=== PATIENT | male | born 1940 | race Caucasian/White ===

== ENCOUNTER 2017-04-20 12:45 | Inpatient (IN) | payer OTHER ==
[2017-04-20 12:58] VITALS: BMI 23.7
--- NOTE | 2017-04-20 13:07 | PDOC ---
History of Present Illness <Nomi Davison - Last Filed: 04/20/17 13:40> - History of Present Illness Initial Comments: 04/20/17 13:12 The patient is a 76 year old male, with a significant past medical history of COPD, who presents to the emergency department, brought in by ambulance from Dr. Clifford Rodriguez office for evaluation of increased SOB r/o pneumonia and CHF. As per Dr. Maloney, the patient was seen in the office about a week ago where an echocardiogram was performed revealing an ejection fracture of 26. Dr. Maloney reportedly started the patient on Lasix on Tuesday, 04/18, and upon a follow-up appointment today, the patient appeared to be in more respiratory distress so the ambulance was called. He denies chest pain, headache and dizziness. He denies fever, chills, nausea, vomit, diarrhea and constipation. He denies dysuria, frequency, urgency and hematuria. Allergies: NKDA PCP: Dr. Clifford Maloney <Lizette Fortune - Last Filed: 04/20/17 15:37> - General Chief Complaint: Respiratory Stated Complaint: SOB (PCP SENT) Time Seen by Provider: 04/20/17 13:07 Past History - Past Medical History HTN: Yes Hypercholesterolemia: Yes Other medical history: RADIATION TO LARYNX. - Suicide/Smoking/Psychosocial Hx Smoking History: Former smoker Have you smoked in the past 12 months: No If you are a former smoker, when did you quit?: 3 YRS AGO Information on smoking cessation initiated: No Hx Alcohol Use: Yes (SOCIAL) Drug/Substance Use Hx: No <Nomi Davison - Last Filed: 04/20/17 13:40> <Lizette Fortune - Last Filed: 04/20/17 15:37> - Past Medical History Allergies/Adverse Reactions: Allergies Allergy/AdvReac Type Severity Reaction Status Date / Time No Known Allergies Allergy Verified 04/20/17 12:58 Home Medications: Ambulatory Orders Albuterol Sulfate [Proair Respiclick] 90 mcg IH DAILY 04/20/17 Amlodipine Besylate 10 mg PO DAILY 04/20/17 Doxazosin Mesylate 2 mg PO HS 04/20/17 Furosemide 20 mg PO Q2D 04/20/17 Gemfibrozil 600 mg PO DAILY 04/20/17 Metoprolol Succinate [Toprol XL -] 25 mg PO DAILY 04/20/17 Tiotropium Br/Olodaterol HCl [Stiolto Respimat Inhal [place]] 4 gm IH DAILY Review of Systems - Review of Systems Able to Perform ROS?: Yes Comments:: 04/20/17 13:13 GENERAL/CONSTITUTIONAL: No fever or chills. No weakness. HEAD, EYES, EARS, NOSE AND THROAT: No change in vision. No ear pain or discharge. No sore throat. CARDIOVASCULAR: (+) shortness of breath. No chest pain RESPIRATORY: (+) SOB. No cough, wheezing, or hemoptysis. GASTROINTESTINAL: No nausea, vomiting, diarrhea or constipation. GENITOURINARY: No dysuria, frequency, or change in urination. MUSCULOSKELETAL: No joint or muscle swelling or pain. No neck or back pain. SKIN: No rash NEUROLOGIC: No headache, vertigo, loss of consciousness, or change in strength/ sensation. ENDOCRINE: No increased thirst. No abnormal weight change. HEMATOLOGIC/LYMPHATIC: No anemia, easy bleeding, or history of blood clots. ALLERGIC/IMMUNOLOGIC: No hives or skin allergy. <Lizette Fortune - Last Filed: 04/20/17 15:37> *Physical Exam - Vital Signs Last Vital Signs Temp Pulse Resp BP Pulse Ox 97.7 F 82 20 142/76 94 L 04/20/17 12:52 04/20/17 12:52 04/20/17 12:52 04/20/17 12:52 04/20/17 12:52 <Nomi Davison - Last Filed: 04/20/17 13:40> - Vital Signs Last Vital Signs Temp Pulse Resp BP Pulse Ox 97.7 F 82 20 142/76 94 L 04/20/17 12:52 04/20/17 12:52 04/20/17 12:52 04/20/17 12:52 04/20/17 12:52 - Physical Exam Comments: 04/20/17 13:14 GENERAL: Awake, alert, and fully oriented, in no acute distress HEAD: No signs of trauma EYES: PERRLA, EOMI, sclera anicteric, conjunctiva clear ENT: Auricles normal inspection, hearing grossly normal, nares patent, oropharynx clear without exudates. Moist mucosa NECK: Normal ROM, supple, no lymphadenopathy, JVD, or masses LUNGS: Breath sounds equal, clear to auscultation bilaterally. No wheezes, and no crackles HEART: Regular rate and rhythm, normal S1 and S2, no murmurs, rubs or gallops ABDOMEN: Soft, nontender, normoactive bowel sounds. No guarding, no rebound. No masses EXTREMITIES: Normal range of motion, no edema. No clubbing or cyanosis. No cords, erythema, or tenderness NEUROLOGICAL: Cranial nerves II through XII grossly intact. Normal speech, normal gait SKIN: Warm, Dry, normal turgor, no rashes or lesions noted. <Lizette Fortune - Last Filed: 04/20/17 15:37> ED Treatment Course - LABORATORY CBC & Chemistry Diagram: 04/20/17 13:38 04/20/17 13:38 - RADIOLOGY Radiograph Interpretation: EXAM#: TYPE/EXAM: RESULT: [id number] RAD/CHEST X-RAY PORTABLE* Evaluate for pneumonia. Portable chest x-ray, AP sitting. Since prior chest x-ray dated 04/04/2017, the cardiac silhouette remains slightly to moderately enlarged. Bilateral increased interstitial markings are suggestive of mild pulmonary venous congestion plus or minus infiltrates. There is also probable minimal left pleural effusion. Mediastinum and visualized osseous structures appear intact with mild dextroscoliosis of the thoracic spine IMPRESSION: Mild to moderate cardiomegaly with mild pulmonary venous congestion plus or minus infiltrates, Reported By: Reginald Rodriguez MD 04/20/17 0510 <Lizette Fortune - Last Filed: 04/20/17 15:37> *DC/Admit/Observation/Transfer - Discharge Dispostion Admit: Yes - Attestations Physician Attestion: 04/20/17 13:07 I, Dr. Nomi Davison, attest that this document has been prepared under my direction and personally reviewed by me in its entirety. I further attest, that it accurately reflects all work, treatment, procedures and medical decision -making performed by me. <Nomi Davison - Last Filed: 04/20/17 13:40> - Attestations Scribe Attestion: 04/20/17 13:14 Documentation prepared by Lizette Fortune, acting as medical appointment clerk for Nomi Davison DO <Lizette Fortune - Last Filed: 04/20/17 15:37> Diagnosis at time of Disposition: Acute dyspnea CHF (congestive heart failure) Qualifiers: Congestive heart failure type: combined Congestive heart failure chronicity: acute Qualified Code(s): I50.41 - Acute combined systolic (congestive) and diastolic (congestive) heart failure COPD (chronic obstructive pulmonary disease) Qualifiers: COPD type: COPD with acute exacerbation Qualified Code(s): J44.1 - Chronic obstructive pulmonary disease with (acute) exacerbation - Discharge Dispostion Condition at time of disposition: Improved - Referrals
[2017-04-20] MEDS ORDERED: methylPREDNISolone NA SUCC 125 MG/2 ML VIAL IVPUSH ONE (13:08)
[2017-04-20] MEDS ORDERED: ALBUTEROL SO4 2.5/IPRATROPIUM 0.5 INH SOL 3 ML VIAL.NEB. NEB ONE ×2 (13:08→13:15)
[2017-04-20] MEDS ORDERED: FUROSEMIDE 40 MG/4 ML INJECTABLE VIAL IVPUSH ONE (13:08)
[2017-04-20] MEDS ORDERED: ALBUTEROL SO4 0.083% IH SOL 2.5 MG/3 ML VIAL.NEB. NEB ONE ×2 (13:08→13:15)
[2017-04-20] MEDS ORDERED: FUROSEMIDE 40 MG/4 ML INJECTABLE VIAL ONE (13:15)
[2017-04-20 13:50] LABS: BASOPHIL 3.1 % (0-2.0); EOSINOPHIL 9.8 % (0-4.5); MCH 32.5 pg (25.7-33.7); MCHC 33.4 g/dl (32.0-35.9); MEAN CELL VOLUME 97.4 fl (80-96); MEAN PLT VOLUME 9.1 fl (7.5-11.1); NEUTROPHILS 54.5 % (42.8-82.8); PLATELET COUNT 214 K/MM3 (134-434); RDW 12.2 % (11.9-15.9)
--- NOTE | 2017-04-20 14:26 | HP ---
Admitting History and Physical - Admission Chief Complaint: pt c/o of sob wosenig despite lasix 2o twice a wk History of Present Illness: had h/o copd excacerbasions old mi low e f less 3o/5 History Source: Patient Limitations to Obtaining History: No Limitations - Past Medical History Cardiovascular: Yes: CHF, HTN, [place], Other (low ejecc fx less 3o) Pulmonary: Yes: COPD ENT: Yes: Other (h/o laryngeal ca) - Smoking History Smoking history: Former smoker Have you smoked in the past 12 months: No If you are a former smoker, when did you quit?: 3 YRS AGO - Alcohol/Substance Use Hx Alcohol Use: Yes (SOCIAL) History of Substance Use: reports: None - Social History Usual Living Arrangement: Yes: With Spouse Home Medications - Allergies Allergies/Adverse Reactions: Allergies Allergy/AdvReac Type Severity Reaction Status Date / Time No Known Allergies Allergy Verified 04/20/17 12:58 Family Disease History - Family Disease History Family History: Unremarkable Physical Examination Vital Signs: Vital Signs Temperature 97.7 F 04/20/17 12:52 Pulse Rate 82 04/20/17 12:52 Respiratory Rate 20 04/20/17 12:52 Blood Pressure 142/76 04/20/17 12:52 O2 Sat by Pulse Oximetry (%) 94 L 04/20/17 12:52 Assessment/Plan lasix card f/u reapeat cxr in am to see if underlying infitrae cont all pt meds and inhalers echo in am watch pt renal numbers
[2017-04-20 14:30] LABS: ALBUMIN 2.8 g/dl (3.4-5.0); ANION GAP 8 (8-16); BILIRUBIN,TOTAL 0.5 mg/dL (0.2-1.0); CALCIUM 8.5 mg/dL (8.5-10.1); CO2 25 mmol/L (21-32); CREATININE 1.2 mg/dL (0.7-1.3); GLUCOSE,RANDOM 126 mg/dL (74-106); SGPT/ALT 19 U/L (12-78); TOT PROT 6.3 g/dl (6.4-8.2)
[2017-04-20 14:31] LABS: ARTERIAL BLD GAS O2 SATURATION 90.4 % (90-98.9); ARTERIAL BLOOD GAS BASE EXCESS -0.8 meq/l (-2-2); ARTERIAL BLOOD GAS HCO3 22.5 meq/L (22-26); ARTERIAL BLOOD GAS PO2 59.3 mmHg (70-100); ARTERIAL BLOOD GAS pH 7.42 (7.35-7.45)
[2017-04-20 14:32] LABS: PROTHROMBIN TIME (PATIENT) 11.3 SEC (9.98-11.88)
[2017-04-20 14:33] LABS: ALK PHOS 74 U/L (45-117); CPK 52 IU/L (39-308); TROPONIN I 0.09 ng/ml (0.00-0.05)
[2017-04-20 14:35] LABS: SGOT/AST 21 U/L (15-37)
[2017-04-20 14:41] LABS: TYPE OF O2 nasal 2.5l
[2017-04-20] MEDS: GEMFIBROZIL 600 MG TABLET (FP) PO SCH (16:59)
[2017-04-20] MEDS ORDERED: METOPROLOL TARTRATE 25 MG TABLET (FP) PO SCH (22:00)
[2017-04-20 22:12] LABS: ANION GAP 12 (8-16); CALCIUM 8.5 mg/dL (8.5-10.1); CO2 23 mmol/L (21-32); CREATININE 1.3 mg/dL (0.7-1.3); GLUCOSE,RANDOM 150 mg/dL (74-106); MAGNESIUM 1.9 mg/dL (1.8-2.4)
[2017-04-20] MEDS ORDERED: HEPARIN NA (PORCINE) 5,000 UNITS/ML 1ML VIAL IVPUSH ONE (22:42)
[2017-04-20] MEDS ORDERED: HEPARIN NA (PORCINE) 5,000 UNITS/ML 1ML VIAL IVPUSH PRN ×2 (22:42)
[2017-04-20] MEDS ORDERED: METOPROLOL TARTRATE 25 MG TABLET (FP) PO ONE (23:00)
[2017-04-20] MEDS: POTASSIUM CHLORIDE TABS 20 MEQ TABLET.ER (FP) PO SCH (23:00)
[2017-04-20 23:45] LABS: INR 1.03 (0.82-1.09); PROTHROMBIN TIME (PATIENT) 11.6 SEC (9.98-11.88)
[2017-04-20 23:48] LABS: ACTIVATED PTT 31.6 SECONDS (26.9-34.4)
[2017-04-21] MEDS: HEPARIN INFUSION - 500 ML IVPB SCH ×2 (00:06→22:41)
--- NOTE | 2017-04-21 00:09 | CONS ---
DATE OF CONSULTATION: 04/20/2017 TIME OF CONSULTATION: 9:45 to 10:40 REQUESTING PHYSICIAN: Clifford Maloney M.D. CARDIOLOGY CONSULTATION CHIEF COMPLAINT: 1. Shortness of breath. 2. Cough. The patient is a 76-year-old [place] gentleman with history of chronic obstructive pulmonary disease, hypertension, hypertensive cardiovascular disease, hypercholesterolemia, and history of cerebral vascular event approximately 25 years ago while he was off his hypertensive therapy. Patient states that for the past 2-3 days, he has noted dyspnea that occurred on walking short distances and for the past 2 days had orthopnea and paroxysmal nocturnal dyspnea associated with a severe cough that was nonproductive. He denies having chest pain or discomfort, either at rest or with exertion. Denies having pedal edema. There is no history of lightheadedness, dizziness, presyncope or syncope. Denies having palpitations. There is no history of diabetes mellitus. No history of heart murmur or rheumatic fever. Patient states that he had ongoing dyspnea and therefore he decided to come to the hospital. PAST HISTORY: As mentioned in the history of present illness. Patient states he was told to have an enlarged heart. History of laryngeal carcinoma. SURGICAL HISTORY: Status post tonsillectomy. Radiation therapy for laryngeal carcinoma. SOCIAL HISTORY: He is retired and states he used to work on [employer], is , has 2 sons. Apparently the younger son has abdominal cancer, type uncertain. Patient started smoking at the age of 16 and stopped approximately 3 years ago when he was diagnosed to have laryngeal carcinoma, but he used to smoke 20 cigarettes per day, and is currently smoking e-cigarettes. He drinks 2-3 glasses of wine, denies excessive use of caffeine. FAMILY HISTORY: Father at the age of 73 of pneumonia. Mother at 74, apparently of natural causes. Had 1 sister who at age 60 apparently of brain tumor. He has 1 younger brother who is healthy. ALLERGIES: None reported. MEDICATION: Prior to admission, were as follows: 1. ProAir. 2. Amlodipine 10 mg p.o. daily. 3. Doxazosin 2 mg p.o. daily at bedtime. 4. Furosemide 20 mg p.o. daily. 5. Gemfibrozil 600 mg p.o. daily. 6. Metoprolol succinate 25 mg p.o. daily. 7. Stiolto 1 inhalation daily. CURRENT MEDICATIONS: Are as follows: 1. Lopressor 25 mg p.o. daily. 2. Norvasc 10 mg p.o. daily. 3. Gemfibrozil 600 mg p.o. b.i.d. 4. Lasix 40 mg p.o. daily, and he received IV Lasix while in the emergency room. 5. Aspirin 81 mg p.o. daily. REVIEW OF SYSTEMS: Constitutional: No history of chills, fever, or night sweats. Denies any unintentional weight loss. HEENT: No history of headaches, diplopia, blurred vision. No history of epistaxis, hoarseness, tinnitus, or deafness reported. Cardiovascular: See history of present illness. Respiratory: History of cough without expectoration. No history of hemoptysis. Denies having tuberculosis. Gastrointestinal: No history of nausea, vomiting, melena or hematemesis. No history of abdominal pain, distention, or discomfort. No history of change in bowel habits. Endocrine: No history of polyuria, polydipsia. Denies history of intolerance to cold or warm weather. Musculoskeletal: Denies having myalgias or arthralgias. Genitourinary: No history of dysuria, frequency, urgency, or hematuria. History of nocturia once a night. Central nervous system: No history of lightheadedness, dizziness, presyncope or syncope. No history of recent focal weakness or seizures. History of cerebrovascular event approximately 25 years ago which included left sided hemiparesis lasting approximately 9 months. Hematological: No history of ecchymosis, bleeding, or anemia. PHYSICAL EXAMINATION: General: A 76-year-old alert gentleman in no acute distress. No pallor, cyanosis, clubbing, or jaundice. Vital signs: Blood pressure 152/90 mmHg. Pulse 106 beats per minute and irregularly irregular. Respirations were 20 per minute. Oxygen saturation at 1849 on 2 L of nasal oxygen was 95%. Neck: Supple. No jugulovenous distention. Positive hepatojugular reflex. Carotids were 2+. Upstrokes were normal. No bruits were heard. No thyromegaly was present. Heart: PMI was in the 5th intercostal space, no heaves or thrills. Heart sounds were distant. S1 was variable. S2 was normal. Holosystolic murmur grade 1 to 2 over 6 was heard at the apex with radiation towards the left axilla. There was an S3 gallop at the apex. Lungs: Fine crepitations at the right base. Chest: Normal AP diameter. Expansion was symmetrical. Abdomen: Soft, slightly protuberant, nontender, no hepatosplenomegaly or palpable masses were felt. No bruits were heard, and bowel sounds were active. Extremities: No calf tenderness or dependent edema, femoral pulses were 2+, dorsalis pedis pulses were 1+. Posterior tibial pulses were not palpable. LABORATORY DATA: CBC: WBC count was 7000, hemoglobin was 14.8 g. Platelet count was 214,000. Differential revealed elevated monocytes 12.8%, eosinophils were elevated at 9.8%, basophils were 3.1%, neutrophils were 54.5%, lymphocytes 19.7%. Chemistries: sodium 143, potassium 3.5, chloride 110, CO2 of 25 mmol/L, BUN 17, creatinine 1.2 mg/dL. Glucose 126 mg/dL. CK 52, troponin 0.09, slightly elevated. BNP 2101.45. Lipase was 125. ECG: Initial ECG was done at 1358 reveals sinus rhythm with first-degree AV block, intraatrial conduction abnormality, frequent premature anomalous QRS complexes compatible with ventricular ectopy. There was single unifocal at times seen in a bigeminal pattern. Poor R wave progression V1 to V3. Diffuse ST and T wave abnormalities. Repeat ECG at 2011 revealed atrial flutter with varying AV conduction, occasional ventricular ectopic beats that were single and unifocal, left axis deviation, compared to earlier ECG rhythm changes above. X-ray, chest, impression: Mild to moderate cardiomegaly with mild pulmonary venous congestion plus or minus infiltrates. IMPRESSION: 1. Clinical presentation is consistent with congestive heart failure, [place] Heart Classification 4. 2. Apical systolic murmur consistent with mitral regurgitation. 3. History of chronic obstructive pulmonary disease. 4. New onset atrial flutter with varying arteriovenous response. 5. Ventricular ectopic beats. 6. Hypertension, hypertensive cardiovascular disease, poorly controlled. 7. History of hypercholesterolemia. 8. Hypokalemia. 9. Status post cerebrovascular accident. 10. History of laryngeal carcinoma. 11. Poor compliance. RECOMMENDATION: 1. Heparinization as per protocol in view of new onset atrial flutter. 2. Increase metoprolol tartrate to 50 mg p.o. b.i.d. for blood pressure control. 3. Add DIANA inhibitors or GERTRUDIS. 4. Correction of hypokalemia. 5. Bedside echocardiogram. 6. Serial ECG and enzymes. 7. Counseled regarding cessation of . 8. Follow up x-ray chest. 9. Further suggestion will depend upon result of the above mentioned tests. Prognosis guarded. Thank you for your referral. Yours Sincerely, OUSMANE DAIGLE M.D. [id number]
[2017-04-21] MEDS: POTASSIUM CHLORIDE TABS 20 MEQ TABLET.ER (FP) PO SCH (03:54)
[2017-04-21] MEDS: GEMFIBROZIL 600 MG TABLET (FP) PO SCH ×2 (06:03→16:15)
[2017-04-21 06:27] LABS: BASOPHIL 0.2 % (0-2.0); MCH 33.7 pg (25.7-33.7); MCHC 34.8 g/dl (32.0-35.9); MEAN CELL VOLUME 96.8 fl (80-96); MEAN PLT VOLUME 9.3 fl (7.5-11.1); NEUTROPHILS 83.3 % (42.8-82.8); PLATELET COUNT 219 K/MM3 (134-434); RDW 12.3 % (11.9-15.9); WHITE BLOOD COUNT 7.7 K/mm3 (4.0-10.0)
[2017-04-21 06:38] LABS: INR 1.1 (0.82-1.09); PROTHROMBIN TIME (PATIENT) 12.4 SEC (9.98-11.88)
[2017-04-21 06:41] LABS: ACTIVATED PTT 74.5 SECONDS (26.9-34.4)
[2017-04-21 07:03] LABS: ALBUMIN 2.7 g/dl (3.4-5.0); ANION GAP 12 (8-16); BILIRUBIN,TOTAL 0.5 mg/dL (0.2-1.0); CALCIUM 8.1 mg/dL (8.5-10.1); CO2 23 mmol/L (21-32); CREATININE 1.4 mg/dL (0.7-1.3); GLUCOSE,RANDOM 135 mg/dL (74-106); SGOT/AST 14 U/L (15-37); SGPT/ALT 18 U/L (12-78); TOT PROT 5.9 g/dl (6.4-8.2)
[2017-04-21 07:12] LABS: ALK PHOS 67 U/L (45-117); THYROID STIMULATING HORMONE 0.69 uIU/ml (0.358-3.74)
[2017-04-21] MEDS: ASPIRIN COATED 81 MG TABLET.EC PO SCH (09:50)
[2017-04-21] MEDS: FUROSEMIDE 40 MG TABLET (FP) PO SCH (09:50)
[2017-04-21] MEDS: amLODIPine BESYLATE 10 MG TABLET (FP) PO SCH (09:51)
[2017-04-21] MEDS: METOPROLOL TARTRATE 50 MG TABLET (FP) PO SCH ×2 (09:51→22:42)
--- NOTE | 2017-04-21 10:41 | EKG ---
Test Reason : Blood Pressure : / mmHG Vent. Rate : 081 BPM Atrial Rate : 326 BPM P-R Int : 000 ms QRS Dur : 104 ms QT Int : 430 ms P-R-T Axes : 000 -08 090 degrees QTc Int : 499 ms ATRIAL FLUTTER WITH VARIABLE A-V BLOCK INFERIOR INFARCT (CITED ON OR BEFORE 20-APR-2017) ABNORMAL ECG WHEN COMPARED WITH ECG OF 20-APR-2017 20:12, NONSPECIFIC T WAVE ABNORMALITY NO LONGER EVIDENT IN INFERIOR LEADS Confirmed by MELODIE PURDY MD ([id number]) on 04/21/2017 10:41:12 AM Referred By: SHEIK ROMEO DR Confirmed By:MELODIE PURDY MD
--- NOTE | 2017-04-21 10:43 | EKG ---
Test Reason : Blood Pressure : / mmHG Vent. Rate : 081 BPM Atrial Rate : 081 BPM P-R Int : 292 ms QRS Dur : 106 ms QT Int : 466 ms P-R-T Axes : 034 014 083 degrees QTc Int : 541 ms SINUS RHYTHM WITH 1ST DEGREE A-V BLOCK WITH FREQUENT PREMATURE VENTRICULAR COMPLEXES NONSPECIFIC T WAVE ABNORMALITY PROLONGED QT ABNORMAL ECG NO PREVIOUS ECGS AVAILABLE Confirmed by MELODIE PURDY MD ([id number]) on 04/21/2017 10:42:37 AM Referred By: Confirmed By:MELODIE PURDY MD
--- NOTE | 2017-04-21 10:56 | PN ---
Progress Note, Physician Chief Complaint: less sob no cp vss ok irreg irreg - Current Medication List Current Medications: Active Medications Amlodipine Besylate (Norvasc -) 10 mg PO DAILY [facility] Last Admin: 04/21/17 09:51 Dose: 10 mg Aspirin (Ecotrin -) 81 mg PO DAILY [facility] Last Admin: 04/21/17 09:50 Dose: 81 mg Furosemide (Lasix -) 40 mg PO DAILY [facility] Last Admin: 04/21/17 09:50 Dose: 40 mg Gemfibrozil (Lopid -) 600 mg PO BID@0700,1630 [facility] Last Admin: 04/21/17 06:03 Dose: 600 mg Heparin Sodium (Porcine) (Heparin -) 5,000 unit IVPUSH PRN PRN Heparin Sodium (Porcine) (Heparin -) 1,000 unit IVPUSH PRN PRN Heparin Sodium/Dextrose (Heparin Infusion -) 500 mls @ 20 mls/hr IVPB TITR RAMU ; 1,000 UNITS/HR PRN Reason: Protocol Last Admin: 04/21/17 00:06 Dose: 20 mls/hr Metoprolol Tartrate (Lopressor -) 50 mg PO BID [facility] Last Admin: 04/21/17 09:51 Dose: 50 mg - Objective Vital Signs: Vital Signs Temperature 98 F 04/21/17 08:38 Pulse Rate 85 04/21/17 08:38 Respiratory Rate 20 04/21/17 08:38 Blood Pressure 134/73 04/21/17 08:38 O2 Sat by Pulse Oximetry (%) 92 L 04/21/17 09:00 Constitutional: Yes: No Distress Eyes: Yes: WNL HENT: Yes: WNL Neck: Yes: WNL Cardiovascular: Yes: Pulse Irregular Respiratory: Yes: Other (less rales) Gastrointestinal: Yes: WNL ...Rectal Exam: Yes: Deferred Genitourinary: Yes: WNL Breast(s): Yes: WNL Musculoskeletal: Yes: WNL Extremities: Yes: WNL Edema: No Peripheral Pulses WNL: Yes Integumentary: Yes: WNL Neurological: Yes: WNL ...Motor Strength: WNL Psychiatric: Yes: WNL Labs: CBC, BMP 04/21/17 05:35 04/21/17 05:35 INR, PTT INR 1.10 (0.82-1.09) 04/21/17 05:35 Assessment/Plan pt has bsd cough w jermaine ihibitors cont current tx chk tni again may need card cath w [facility] docs watch renal numbers replace k
[2017-04-21] MEDS ORDERED: POTASSIUM CHLORIDE TABS 20 MEQ TABLET.ER (FP) PO ONE (11:30)
--- NOTE | 2017-04-21 16:04 | PN ---
Progress Note (short form) - Note Progress Note: 76 year old male admitted with incraeing dyspnea,PND and orthopnea, found to be in atrial flutter. JKnown to have hypertension. Minimal SOB, no PND or orthopnea. no palpitations. remains in atrial flutter vs slow atrial fib. with varying AV conduction. complained of mild anterior pressure like discomfort while sitting in the chair, received NTG 0.04mg. with prompt relief. Active Medications Amlodipine Besylate (Norvasc -) 10 mg PO DAILY [facility] Last Admin: 04/21/17 09:51 Dose: 10 mg Aspirin (Ecotrin -) 81 mg PO DAILY [facility] Last Admin: 04/21/17 09:50 Dose: 81 mg Furosemide (Lasix -) 40 mg PO DAILY [facility] Last Admin: 04/21/17 09:50 Dose: 40 mg Gemfibrozil (Lopid -) 600 mg PO BID@0700,1630 [facility] Last Admin: 04/21/17 06:03 Dose: 600 mg Heparin Sodium (Porcine) (Heparin -) 5,000 unit IVPUSH PRN PRN Heparin Sodium (Porcine) (Heparin -) 1,000 unit IVPUSH PRN PRN Heparin Sodium/Dextrose (Heparin Infusion -) 500 mls @ 20 mls/hr IVPB TITR RAMU ; 1,000 UNITS/HR PRN Reason: Protocol Last Admin: 04/21/17 00:06 Dose: 20 mls/hr Metoprolol Tartrate (Lopressor -) 50 mg PO BID [facility] Last Admin: 04/21/17 09:51 Dose: 50 mg 76 year old male in no acute distress, no pallor, cyanosis, clubbing or jaundice. Vital Signs - 8 hr 04/21/17 04/21/17 08:38 09:00 Temperature 98 F Pulse Rate 85 irregular Respiratory 20 Rate Blood Pressure 134/73 O2 Sat by Pulse 92 L Oximetry (%) Intake & Output 04/18/17 04/19/17 04/20/17 04/21/17 23:59 23:59 23:59 23:59 Intake Total 120 760 Output Total 1800 380 Balance -1680 380 Weight 170 lb 161 lb 2 oz Troponin, BNP 04/20/17 21:20 Troponin I 0.07 H NECK: Supple, no JVD, HJR-ve, carotids 2+. HEART: Irregular,distant sounds holosystolic grade II/ murmur at the apex with radiation to the left axilla, S3 gallop at the apex. LUNGS: Fine creps at the right base. EXTREMITIES: No edema or calf tenderness. ECHOCARDIOGRAM:Preliminary report, Severe LV systolic dysfunction, severe LV dilatation, severe global hypokinesia. Severe mitral regurgitation, enlarged LA. Detailed report to follow. A: 1. 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 Ischemic. b). Hypertensive. c). Ethanol induced. 2. CHF NYHA IV, resolving. 3. Severe mitral regurgitation. 4. New onset atrial flutter/fib with controlled ventricular response. 5. Chest pain, consistent with of CAD, angina pectoris. 6. Hypokalemia. 7. Tobacco Abuse. Recommendations; 1.Transfer to . 2. IV Nitroglycerine. 3. Add ARB, apparently patient had cough with DIANA. 4. Discussed with Dr. Maloney regarding transfer to [facility] and he is making arrangements. 5. Follow up EKG and CKMI. 6. Check electrolytes. Prognosis Critical. Time spent 1hr:35 mins.
[2017-04-21] MEDS ORDERED: NITROGLYCERIN SUBLINGUAL 1/150 0.4 MG TAB ONE (17:04)
--- NOTE | 2017-04-21 17:18 | EKG ---
Test Reason : Blood Pressure : / mmHG Vent. Rate : 105 BPM Atrial Rate : 326 BPM P-R Int : 000 ms QRS Dur : 108 ms QT Int : 362 ms P-R-T Axes : 000 -19 088 degrees QTc Int : 478 ms ATRIAL FLUTTER WITH VARIABLE A-V BLOCK WITH PREMATURE VENTRICULAR OR ABERRANTLY CONDUCTED COMPLEXES INFERIOR INFARCT , AGE UNDETERMINED ABNORMAL ECG WHEN COMPARED WITH ECG OF 20-APR-2017 13:58, ATRIAL FLUTTER HAS REPLACED SINUS RHYTHM NONSPECIFIC T WAVE ABNORMALITY NOW EVIDENT IN INFERIOR LEADS NONSPECIFIC T WAVE ABNORMALITY, WORSE IN LATERAL LEADS QT HAS SHORTENED Confirmed by MELODIE PURDY MD ([id number]) on 04/21/2017 5:18:06 PM Referred By: Confirmed By:MELODIE PURDY MD
[2017-04-21] MEDS ORDERED: NITROGLYCERIN 25MG/D5W 250ML 250 ML IVPB SCH (18:45)
[2017-04-22 02:17] LABS: T3 UPTAKE 33.2 % (33-40); THYROXINE (T4) 6.2 ug/dl (4.5-12.1)
[2017-04-22] MEDS: GEMFIBROZIL 600 MG TABLET (FP) PO SCH ×2 (06:04→17:23)
[2017-04-22 07:46] LABS: BASOPHIL 0.7 % (0-2.0); EOSINOPHIL 4.2 % (0-4.5); MCH 33.6 pg (25.7-33.7); MCHC 34.5 g/dl (32.0-35.9); MEAN CELL VOLUME 97.5 fl (80-96); MEAN PLT VOLUME 9.6 fl (7.5-11.1); NEUTROPHILS 66.7 % (42.8-82.8); PLATELET COUNT 213 K/MM3 (134-434); RDW 12.6 % (11.9-15.9); WHITE BLOOD COUNT 7.6 K/mm3 (4.0-10.0)
[2017-04-22 08:02] VITALS: TEMP 97.8
[2017-04-22 08:10] LABS: ANION GAP 9 (8-16); CALCIUM 8.2 mg/dL (8.5-10.1); CO2 27 mmol/L (21-32); GLUCOSE,RANDOM 81 mg/dL (74-106)
[2017-04-22 08:26] LABS: CREATININE 1.2 mg/dL (0.7-1.3); THYROID STIMULATING HORMONE 2.75 uIU/ml (0.358-3.74); TROPONIN I 0.06 ng/ml (0.00-0.05)
[2017-04-22] MEDS: amLODIPine BESYLATE 10 MG TABLET (FP) PO SCH (09:13)
[2017-04-22] MEDS: FUROSEMIDE 40 MG TABLET (FP) PO SCH (09:13)
[2017-04-22] MEDS: ASPIRIN COATED 81 MG TABLET.EC PO SCH (09:13)
[2017-04-22] MEDS: METOPROLOL TARTRATE 50 MG TABLET (FP) PO SCH (09:13)
[2017-04-22] MEDS ORDERED: ACETAMINOPHEN 325 MG TABLET (FP) PO PRN (09:28)
[2017-04-22] MEDS ORDERED: LOSARTAN POTASSIUM 25 MG TABLET PO SCH (10:00)
--- NOTE | 2017-04-22 10:00 | PN ---
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 Also noted to be in atrial fibrillation. - Current Medication List Current Medications: Active Medications Acetaminophen (Tylenol -) 650 mg PO Q4H PRN PRN Reason: FEVER OR PAIN Amlodipine Besylate (Norvasc -) 10 mg PO DAILY [facility] Last Admin: 04/22/17 09:13 Dose: 10 mg Aspirin (Ecotrin -) 81 mg PO DAILY [facility] Last Admin: 04/22/17 09:13 Dose: 81 mg Furosemide (Lasix -) 40 mg PO DAILY [facility] Last Admin: 04/22/17 09:13 Dose: 40 mg Gemfibrozil (Lopid -) 600 mg PO BID@0700,1630 [facility] Last Admin: 04/22/17 06:04 Dose: 600 mg Heparin Sodium (Porcine) (Heparin -) 5,000 unit IVPUSH PRN PRN Heparin Sodium (Porcine) (Heparin -) 1,000 unit IVPUSH PRN PRN Heparin Sodium/Dextrose (Heparin Infusion -) 500 mls @ 20 mls/hr IVPB TITR RAMU ; 1,000 UNITS/HR PRN Reason: Protocol Last Titration: 04/22/17 08:10 Dose: 1,000 units/hr Nitroglycerin/Dextrose (Nitroglycerin 25mg/D5w 250ml) 250 mls @ 3 mls/hr IVPB TITR RAMU; 5 MCG/MIN PRN Reason: Protocol Last Admin: 04/21/17 20:20 Dose: 3 mls/hr Losartan Potassium (Cozaar -) 25 mg PO DAILY [facility] Last Admin: 04/22/17 09:13 Dose: 25 mg Metoprolol Tartrate (Lopressor -) 50 mg PO BID [facility] Last Admin: 04/22/17 09:13 Dose: 50 mg - Objective Vital Signs: Vital Signs Temperature 97.8 F 04/22/17 08:02 Pulse Rate 86 04/22/17 08:02 Respiratory Rate 20 04/22/17 08:02 Blood Pressure 137/69 04/22/17 08:02 O2 Sat by Pulse Oximetry (%) 95 04/21/17 21:00 Constitutional: Yes: No Distress Neck: Yes: Supple Cardiovascular: Yes: Pulse Irregular, JVD, Murmur (+3/6 HSM apex to axilla), S1 , S2 Respiratory: Yes: Rales (bibasilar crackles) Gastrointestinal: Yes: Normal Bowel Sounds, Soft Edema: No Labs: CBC, BMP 04/22/17 05:18 04/22/17 05:18 INR, PTT INR 1.10 (0.82-1.09) 04/21/17 05:35 Problem List - Problems (1) CHF (congestive heart failure) Code(s): I50.9 - HEART FAILURE, UNSPECIFIED Qualifiers: Congestive heart failure type: combined Congestive heart failure chronicity: acute Qualified Code(s): I50.41 - Acute combined systolic ( congestive) and diastolic (congestive) heart failure; I50.41 - Acute combined systolic (congestive) and diastolic (congestive) heart failure; I50.41 - Acute combined systolic (congestive) and diastolic (congestive) heart failure; I50.41 - Acute combined systolic (congestive) and diastolic (congestive) heart failure (2) Afib Code(s): I48.91 - UNSPECIFIED ATRIAL FIBRILLATION Assessment/Plan 76 year old male with a pmhx of htn, hld, CVA (many years ago) with no residual deficits, +tobacco use, +etoh use, and 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 Also noted to be in atrial fibrillation. 1) Acute CHF with severe LV dysfunction Would increase diuretic dosage Continue IV nitro On beta bin and losartan Would plan to uptitrate losartan and downtitrate amlodipine Plan for transfer to [facility] today and plan for R/L heart cath 2) Afib rate controlled on metoprolol On IV heparin Will follow patient at [facility]
--- NOTE | 2017-04-22 10:26 | PN ---
Progress Note (short form) - Note Progress Note: 76 year old male admitted with incraeing dyspnea,PND and orthopnea, found to be in atrial flutter. Known to have hypertension. Patient had recurrence of SOB during the night accompanied by mild anterior chest discomfort. Has a mild headache since on IV nitro. Presently he is pain free and is on the list for transfer to [facility] for cardiac catherization. Active Medications Amlodipine Besylate (Norvasc -) 10 mg PO DAILY [facility] Last Admin: 04/21/17 09:51 Dose: 10 mg Aspirin (Ecotrin -) 81 mg PO DAILY [facility] Last Admin: 04/21/17 09:50 Dose: 81 mg Furosemide (Lasix -) 40 mg PO DAILY [facility] Last Admin: 04/21/17 09:50 Dose: 40 mg Gemfibrozil (Lopid -) 600 mg PO BID@0700,1630 [facility] Last Admin: 04/21/17 06:03 Dose: 600 mg Heparin Sodium (Porcine) (Heparin -) 5,000 unit IVPUSH PRN PRN Heparin Sodium (Porcine) (Heparin -) 1,000 unit IVPUSH PRN PRN Heparin Sodium/Dextrose (Heparin Infusion -) 500 mls @ 20 mls/hr IVPB TITR RAMU ; 1,000 UNITS/HR PRN Reason: Protocol Last Admin: 04/21/17 00:06 Dose: 20 mls/hr Metoprolol Tartrate (Lopressor -) 50 mg PO BID [facility] Last Admin: 04/21/17 09:51 Dose: 50 mg 76 year old male in no acute distress, no pallor, cyanosis, clubbing or jaundice. Last Vital Signs Temp Pulse Resp BP Pulse Ox 97.8 F 86 20 137/69 95 04/22/17 08:02 04/22/17 08:02 04/22/17 08:02 04/22/17 08:02 04/21/17 21:00 Intake & Output 04/19/17 04/20/17 04/21/17 04/22/17 23:59 23:59 23:59 23:59 Intake Total 120 1000 513 Output Total 1800 980 700 Balance -1680 20 -187 Weight 170 lb 161 lb 2 oz 160 lb 12.8 oz Troponin, BNP 04/22/17 05:18 Troponin I 0.06 H NECK: Supple, no JVD, HJR-ve, carotids 2+. HEART: Irregular,distant sounds holosystolic grade II/ murmur at the apex with radiation to the left axilla, S3 gallop at the apex. LUNGS: Fine creps at the right base. EXTREMITIES: No edema or calf tenderness. A: 1. 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 Ischemic. b). Hypertensive. c). Ethanol induced. 2. Chest pain syndrome consistent with progressive angina pectoris/ACS 3. CHF NYHA IV, resolving. 4. Severe mitral regurgitation. 5. New onset atrial flutter/fib with controlled ventricular response. 6. Chest pain, consistent with of CAD, angina pectoris. 7. Hypokalemia. 8. Tobacco Abuse. Recommendations; 1. On list for transfer to [facility]. 2. Titrate IV Nitroglycerine. 3. Add ARB, apparently patient had cough with DIANA. 4. IV lasix. 5. Check electrolytes. Prognosis Critical. Time spent 1hr:35 mins.
[2017-04-22] MEDS ORDERED: POTASSIUM CHLORIDE ORAL LIQUID 20 MEQ/15 ML PO ONE (12:45)
--- NOTE | 2017-04-22 14:06 | PN ---
Progress Note, Physician History of Present Illness: PT MAY BE HAVING ANXIETY W PANIC ATTACKS AT NIGHT ALSO HAS SUBCLICAL HYOPERTRHYROIDISM MAY COVSIDER TAPOZOLE 5 MG QD CARD CATH ? MR MICHAEL Gonzalez RAULITO DOCS DR MCWILLIAMS DOING TRANSFER TODAY MUST F/U Carlos CABEZAS AND ME IN MY OFFICE - Current Medication List Current Medications: Active Medications Acetaminophen (Tylenol -) 650 mg PO Q4H PRN PRN Reason: FEVER OR PAIN Amlodipine Besylate (Norvasc -) 10 mg PO DAILY [facility] Last Admin: 04/22/17 09:13 Dose: 10 mg Aspirin (Ecotrin -) 81 mg PO DAILY [facility] Last Admin: 04/22/17 09:13 Dose: 81 mg Furosemide (Lasix -) 40 mg PO DAILY [facility] Last Admin: 04/22/17 09:13 Dose: 40 mg Gemfibrozil (Lopid -) 600 mg PO BID@0700,1630 [facility] Last Admin: 04/22/17 06:04 Dose: 600 mg Heparin Sodium (Porcine) (Heparin -) 5,000 unit IVPUSH PRN PRN Heparin Sodium (Porcine) (Heparin -) 1,000 unit IVPUSH PRN PRN Heparin Sodium/Dextrose (Heparin Infusion -) 500 mls @ 20 mls/hr IVPB TITR RAMU ; 1,000 UNITS/HR PRN Reason: Protocol Last Titration: 04/22/17 08:10 Dose: 1,000 units/hr Nitroglycerin/Dextrose (Nitroglycerin 25mg/D5w 250ml) 250 mls @ 3 mls/hr IVPB TITR RAMU; 5 MCG/MIN PRN Reason: Protocol Last Admin: 04/21/17 20:20 Dose: 3 mls/hr Losartan Potassium (Cozaar -) 25 mg PO DAILY [facility] Last Admin: 04/22/17 09:13 Dose: 25 mg Metoprolol Tartrate (Lopressor -) 50 mg PO BID [facility] Last Admin: 04/22/17 09:13 Dose: 50 mg - Objective Vital Signs: Vital Signs Temperature 97.8 F 04/22/17 08:02 Pulse Rate 86 04/22/17 08:02 Respiratory Rate 20 04/22/17 08:02 Blood Pressure 137/69 04/22/17 08:02 O2 Sat by Pulse Oximetry (%) 96 04/22/17 08:00 Labs: CBC, BMP 04/22/17 05:18 04/22/17 05:18 INR, PTT INR 1.10 (0.82-1.09) 04/21/17 05:35
[2017-04-22 14:12] VITALS: BP 121/92; PULSE 84
[2017-04-23 10:11] LABS: THYROID PEROXIDASE(TPO) 9 IU/mL (0-34)
== END 2017-04-22 17:24 | disposition short-term general hospital (02) | DRG 308 ==
LOC: JER 12:45 → JERBED 13:41 → J4S 20:21 → J4W 04-21 19:56
PROVIDERS: ADMIT Family Medicine; ATTEND Family Medicine
DX: I48.92 Unspecified atrial flutter (principal); I50.21 Acute systolic (congestive) heart failure; I11.0 Hypertensive heart disease with heart failure; I34.0 Nonrheumatic mitral (valve) insufficiency; I48.91 Unspecified atrial fibrillation; J44.9 Chronic obstructive pulmonary disease, unspecified; E87.6 Hypokalemia; R07.89 Other chest pain; E78.5 Hyperlipidemia, unspecified; Z86.73 Personal history of transient ischemic attack (TIA), and cerebral infarction without residual deficits; Z87.891 Personal history of nicotine dependence; I42.6 Alcoholic cardiomyopathy; I42.0 Dilated cardiomyopathy
CPT/HCPCS: 36415; 36600; 71010-TC; 71020-TC; 80048; 80053; 82550; 82803; 83605; 83690; 83735; 83880; 84436; 84439; 84443; 84479; 84480; 84484; 85025; 85610; 85730; 86376; 86800; 87040; 93005; 93010; 93306-TC; 99284-25; J1644

== ENCOUNTER 2017-05-16 13:09 | Inpatient (IN) | payer OTHER ==
--- NOTE | 2017-05-16 13:22 | PDOC ---
History of Present Illness - General Chief Complaint: Shortness of Breath Stated Complaint: RESPIRATORY PROBLEM Time Seen by Provider: 05/16/17 13:22 - History of Present Illness Initial Comments: 05/16/17 14:50 Mr. Pabon is a 76 yo male w/ pmh of recent triple bypass Nov. as well as HTN, HC, and distant throat cancer who presents c/o 4 day history of shortness of breath. They decided to present when home health noted fluid on lungs per exam ( reported by patient). They called pcp who advised to take an extra 40 of lasix for a total of 60 total oral so far today. Patient has no other complaints and is currently resting comfortably on 3L of O2. The patient denies chest pain, headache and dizziness. Denies fever, chills, nausea, vomit, diarrhea and constipation. Denies dysuria, frequency, urgency and hematuria. Allergies: NKDA PMD - Clifford Maloney. Extension Course Counselor - Arleen 05/16/17 15:08 Past History - Past Medical History Allergies/Adverse Reactions: Allergies Allergy/AdvReac Type Severity Reaction Status Date / Time No Known Allergies Allergy Verified 05/16/17 13:11 Home Medications: Ambulatory Orders Albuterol Sulfate [Proair Respiclick] 90 mcg IH DAILY 04/20/17 Amlodipine Besylate 10 mg PO DAILY 04/20/17 Doxazosin Mesylate 2 mg PO HS 04/20/17 Furosemide 20 mg PO Q2D 04/20/17 Gemfibrozil 600 mg PO DAILY 04/20/17 Metoprolol Succinate [Toprol XL -] 25 mg PO DAILY 04/20/17 Tiotropium Br/Olodaterol HCl [Stiolto Respimat Inhal [place]] 4 gm IH DAILY Anemia: No Asthma: No Cancer: Yes (laryngeal carcinoma s/p RT) Cardiac Disorders: Yes (hypertensive cardiovascular dz, cardiomegaly) 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, resolved left sided hemiparesis) COPD: Yes CHF: No DVT: No Disorders: Yes (CRF) HTN: Yes Hypercholesterolemia: Yes - Surgical History Cardiac Surgery: Yes (cabg) Orthopedic Surgery: Yes (shoulder sx) - Suicide/Smoking/Psychosocial Hx Smoking History: Former smoker Have you smoked in the past 12 months: No If you are a former smoker, when did you quit?: 3 YRS AGO Information on smoking cessation initiated: No Hx Alcohol Use: Yes (SOCIAL) Drug/Substance Use Hx: No Substance Use Type: Alcohol Hx Substance Use Treatment: No Review of Systems - Review of Systems Comments:: 05/16/17 14:54 GENERAL/CONSTITUTIONAL: No fever or chills. No weakness. HEAD, EYES, EARS, NOSE AND THROAT: No change in vision. No ear pain or discharge. No sore throat. CARDIOVASCULAR: No chest pain RESPIRATORY: +Shortness of breath as described. No cough, wheezing, or hemoptysis. GASTROINTESTINAL: No nausea, vomiting, diarrhea or constipation. GENITOURINARY: No dysuria, frequency, or change in urination. MUSCULOSKELETAL: No joint or muscle swelling or pain. No neck or back pain. SKIN: No rash NEUROLOGIC: No headache, vertigo, loss of consciousness, or change in strength/ sensation. ENDOCRINE: No increased thirst. No abnormal weight change HEMATOLOGIC/LYMPHATIC: No anemia, easy bleeding, or history of blood clots. ALLERGIC/IMMUNOLOGIC: No hives or skin allergy. *Physical Exam - Vital Signs Last Vital Signs Temp Pulse Resp BP Pulse Ox 97.9 F 104 H 18 122/89 100 05/16/17 13:11 05/16/17 13:11 05/16/17 13:11 05/16/17 13:11 05/16/17 13:11 - Physical Exam Comments: 05/16/17 14:55 GENERAL: Awake, alert, and fully oriented, in no acute distress on 3L nasal cannula HEAD: No signs of trauma, normocephalic, atraumatic EYES: PERRLA, EOMI, sclera anicteric, conjunctiva clear ENT: Auricles normal inspection, hearing grossly normal, nares patent, oropharynx clear without exudates. Moist mucosa NECK: Normal ROM, supple, no lymphadenopathy, JVD, or masses LUNGS: +Crackles noted throughout lung davis bilaterally. HEART: Regular rate and rhythm, normal S1 and S2, no murmurs, rubs or gallops, peripheral pulses normal and equal bilaterally. ABDOMEN: Soft, nontender, normoactive bowel sounds. No guarding, no rebound. No masses EXTREMITIES: Normal inspection, Normal range of motion, no edema. No clubbing or cyanosis. NEUROLOGICAL: Cranial nerves II through XII grossly intact. Normal speech, normal gait, no focal sensorimotor deficits SKIN: Warm, Dry, normal turgor, no rashes or lesions noted. ED Treatment Course - LABORATORY CBC & Chemistry Diagram: 05/16/17 14:30 05/16/17 14:30 Medical Decision Making - Medical Decision Making 05/16/17 14:55 Discussed pt with PCP who would like to keep pt outside of hospital provided ok by printed circuit board reworker. Will consult printed circuit board reworker for evaluation. 05/16/17 15:14 Discussed pt w/ Dr. Bacon (Cardiology) - Dr. Bacon supports increasing Lasix to 40 BID and adding Howard to patient medication regimen as well (losartan 25mg PO). Dr. Bacon would like pt to stay in hospital overnight. Will comply *DC/Admit/Observation/Transfer Diagnosis at time of Disposition: Acute dyspnea - Discharge Dispostion Admit: Yes - Referrals - Patient Instructions - Post Discharge Activity
--- NOTE | 2017-05-16 14:23 | PDOC ---
Attending Attestation - HPI HPI: 05/16/17 16:02 Patient is a 76 year old male with a PMHx of HTN, COPD, recent triple bypass on Apr 27, who presents to the ED with SOB for 4 days. PMD: Clifford Maloney Practice Architect: Dr. Swain - Physicial Exam PE: 05/16/17 16:02 GENERAL: Awake, alert, and fully oriented, in no acute distress HEAD: No signs of trauma EYES: PERRLA, EOMI, sclera anicteric, conjunctiva clear ENT: Auricles normal inspection, hearing grossly normal, nares patent, oropharynx clear without exudates. Moist mucosa NECK: Normal ROM, supple, no lymphadenopathy, JVD, or masses LUNGS: Rales diffusely. HEART: Regular rate and rhythm, normal S1 and S2, no murmurs, rubs or gallops ABDOMEN: Laproscopic incisions are healing well. No drainage, no errythema. Soft , nontender, normoactive bowel sounds. No guarding, no rebound. No masses EXTREMITIES: 2+ pitting edema on lower extremities. Normal range of motion, No clubbing or cyanosis. No cords, erythema, or tenderness NEUROLOGICAL: Cranial nerves II through XII grossly intact. Normal speech, normal gait SKIN: Warm, Dry, normal turgor, no rashes or lesions noted. <Codie Jennings - Last Filed: 05/16/17 16:02> - Resident Resident Name: Chet Quesada - ED Attending Attestation I have performed the following: I have examined & evaluated the patient, The case was reviewed & discussed with the resident, I agree w/resident's findings & plan, Exceptions are as noted - Medical Decision Making 05/16/17 14:23 I, Dr. Maddy Calderón, DO, attest that this document has been prepared under my direction and personally reviewed by me in its entirety. I further attest, that it accurately reflects all work, treatment, procedures and medical decision -making performed by me. 05/16/17 16:42 a/p: 76yo male with worsening SOB -labs, ekg, cxr, given lasix earlier today will discuss with PMD and dr. swain per dr. swain pt needs losartan pt accepted by PMD dr. maloney pt with fluid overload dyspnea chf exacerbation. <Maddy Calderón - Last Filed: 05/16/17 16:47> Heart Score/ECG Review - ECG Intrepretation Comment:: 05/16/17 16:46 afib at 91, pvc, nl axis, low voltage, no acute st/t wave findings <Maddy Calderón - Last Filed: 05/16/17 16:47>
[2017-05-16 14:45] LABS: BASOPHIL 1.4 % (0-2.0); EOSINOPHIL 4.6 % (0-4.5); MCH 31.1 pg (25.7-33.7); MCHC 32.6 g/dl (32.0-35.9); MEAN CELL VOLUME 95.4 fl (80-96); MEAN PLT VOLUME 9.4 fl (7.5-11.1); NEUTROPHILS 72.1 % (42.8-82.8); PLATELET COUNT 212 K/MM3 (134-434); WHITE BLOOD COUNT 6.4 K/mm3 (4.0-10.0)
[2017-05-16 15:00] LABS: ALBUMIN 2.7 g/dl (3.4-5.0); BILIRUBIN,TOTAL 0.6 mg/dL (0.2-1.0); CALCIUM 8.5 mg/dL (8.5-10.1); CO2 25 mmol/L (21-32); CREATININE 1.3 mg/dL (0.7-1.3); GLUCOSE,RANDOM 102 mg/dL (74-106); SGPT/ALT 17 U/L (12-78); TOT PROT 6.2 g/dl (6.4-8.2)
[2017-05-16 15:01] LABS: ALK PHOS 114 U/L (45-117); ANION GAP 11 (8-16)
[2017-05-16 15:04] LABS: CPK 175 IU/L (39-308); SGOT/AST 42 U/L (15-37)
[2017-05-16 15:06] LABS: TROPONIN I 0.03 ng/ml (0.00-0.05)
[2017-05-16] MEDS ORDERED: LOSARTAN POTASSIUM 25 MG TABLET PO ONE (15:13)
[2017-05-16] MEDS ORDERED: LOSARTAN POTASSIUM 25 MG TABLET ONE (16:04)
[2017-05-16 20:13] LABS: INR 2.67 (0.82-1.09); PROTHROMBIN TIME (PATIENT) 30.2 SEC (9.98-11.88)
[2017-05-16] MEDS ORDERED: FUROSEMIDE 40 MG/5 ML UNIT-DOSE CUP PO SCH (20:15)
--- NOTE | 2017-05-16 20:25 | PN ---
Progress Note (short form) - Note Progress Note: Patient,seen and examined,admitted with CHf, known case of CAD, recent CABG, severe LV systolic dysfunction, presently in atrial fib with frequent VEBs.H/o of COPD. Transfer patient to telemetry and add low dose betablocker. Detailed consult to follow.
[2017-05-16] MEDS: WARFARIN NA 2 MG TABLET (UD) PO SCH (20:30)
[2017-05-16] MEDS: METOPROLOL TARTRATE 25 MG TABLET (FP) PO SCH (21:26)
[2017-05-16 21:43] VITALS: BMI 23.4
[2017-05-16] MEDS ORDERED: FUROSEMIDE 40 MG/4 ML INJECTABLE VIAL IVPUSH ONE (23:15)
[2017-05-17] MEDS ORDERED: ACETAMINOPHEN 325 MG TABLET (FP) PO PRN ×3 (03:51→11:30)
[2017-05-17] MEDS: FUROSEMIDE 40 MG/4 ML INJECTABLE VIAL IVPUSH SCH ×2 (06:32→14:25)
[2017-05-17 07:42] LABS: BASOPHIL 1.2 % (0-2.0); EOSINOPHIL 4.9 % (0-4.5); MCHC 32.5 g/dl (32.0-35.9); MEAN CELL VOLUME 95.4 fl (80-96); MEAN PLT VOLUME 9.3 fl (7.5-11.1); NEUTROPHILS 65.4 % (42.8-82.8); PLATELET COUNT 175 K/MM3 (134-434); RDW 13.1 % (11.9-15.9); WHITE BLOOD COUNT 5.1 K/mm3 (4.0-10.0)
[2017-05-17 08:04] LABS: ALBUMIN 2.4 g/dl (3.4-5.0); ANION GAP 12 (8-16); CALCIUM 8.1 mg/dL (8.5-10.1); CO2 26 mmol/L (21-32); GLUCOSE,RANDOM 81 mg/dL (74-106); SGPT/ALT 12 U/L (12-78)
[2017-05-17 08:09] LABS: ALK PHOS 107 U/L (45-117); BILIRUBIN,TOTAL 0.5 mg/dL (0.2-1.0); CREATININE 1.3 mg/dL (0.7-1.3); SGOT/AST 12 U/L (15-37); TOT PROT 5.4 g/dl (6.4-8.2); TROPONIN I 0.04 ng/ml (0.00-0.05)
[2017-05-17] MEDS ORDERED: POTASSIUM CHLORIDE ORAL LIQUID 20 MEQ/15 ML PO ONE (09:03)
[2017-05-17] MEDS: METOPROLOL TARTRATE 25 MG TABLET (FP) PO SCH ×2 (09:24→21:11)
[2017-05-17] MEDS: DOXAZOSIN MESYLATE 2 MG TABLET (FP) PO SCH (09:24)
[2017-05-17] MEDS: amLODIPine BESYLATE 5 MG TABLET (FP) PO SCH (09:24)
[2017-05-17 10:16] LABS: INR 2.82 (0.82-1.09); PROTHROMBIN TIME (PATIENT) 31.9 SEC (9.98-11.88)
[2017-05-17] MEDS ORDERED: ALBUTEROL SO4 18 GM HFA INHALER IH PRN (10:38)
--- NOTE | 2017-05-17 10:38 | HP ---
Admitting History and Physical - Admission Chief Complaint: sob 2v 3 days wostening. no cp no palp History Source: Patient Limitations to Obtaining History: No Limitations - Past Medical History Cardiovascular: Yes: AFIB, CHF, HTN, [place], Other (low ejecc fx less 3o) Pulmonary: Yes: COPD Musculoskeletal: Yes: Chronic low back pain ENT: Yes: Other (h/o laryngeal ca) - Past Surgical History Past Surgical History: Yes: Bypass (x 3) - Smoking History Smoking history: Former smoker Have you smoked in the past 12 months: No If you are a former smoker, when did you quit?: 3 YRS AGO - Alcohol/Substance Use Hx Alcohol Use: Yes (SOCIAL) History of Substance Use: reports: None - Social History Usual Living Arrangement: Yes: With Spouse History of Recent Travel: No Home Medications - Allergies Allergies/Adverse Reactions: Allergies Allergy/AdvReac Type Severity Reaction Status Date / Time No Known Allergies Allergy Verified 05/16/17 13:11 - Home Medications Home Medications: Ambulatory Orders Albuterol Sulfate [Proair Respiclick] 90 mcg IH DAILY 04/20/17 Doxazosin Mesylate 2 mg PO HS 04/20/17 Furosemide 20 mg PO BID 04/20/17 Alprazolam 5 mg PO PRN MDD 5 05/17/17 Aspirin [Aspirin EC] 81 mg PO DAILY 05/17/17 Atorvastatin Ca [Lipitor] 40 mg PO HS 05/17/17 Carvedilol [Coreg] 6.25 mg PO BID 05/17/17 Docusate Sodium [Colace -] 100 mg PO TID 05/17/17 Guaifenesin [Mucinex -] 600 mg PO BID 05/17/17 Hydrocortisone 1% Cream 1 applic TP PRN 05/17/17 Oxycodone HCl/Acetaminophen [Percocet 5-325 mg Tablet] 2 tab PO PRN MDD 8 tabs 05/17/17 Valsartan 40 mg PO DAILY 05/17/17 Warfarin Na [Coumadin -] 2 mg PO HS 05/17/17 Review of Systems - Review of Systems Constitutional: reports: Other (sob less) Eyes: reports: No Symptoms HENT: reports: No Symptoms Neck: reports: No Symptoms Cardiovascular: reports: Palpitations Respiratory: reports: SOB on Exertion Gastrointestinal: reports: No Symptoms Genitourinary: reports: No Symptoms Breasts: reports: No Symptoms Reported Musculoskeletal: reports: Back Pain Integumentary: reports: No Symptoms Neurological: reports: No Symptoms Endocrine: reports: No Symptoms Hematology/Lymphatic: reports: No Symptoms Psychiatric: reports: No Symptoms Physical Examination Vital Signs: Vital Signs Temperature 97.5 F L 05/17/17 08:41 Pulse Rate 98 H 05/17/17 08:41 Respiratory Rate 18 05/17/17 08:41 Blood Pressure 136/85 05/17/17 08:41 O2 Sat by Pulse Oximetry (%) 97 05/17/17 09:43 Constitutional: Yes: Well Nourished Eyes: Yes: WNL HENT: Yes: WNL Neck: Yes: WNL Cardiovascular: Yes: Pulse Irregular Respiratory: Yes: Other (distant sounds) Gastrointestinal: Yes: WNL ...Rectal Exam: Yes: Deferred Renal/: Yes: WNL Breast(s): Yes: WNL Musculoskeletal: Yes: Back Pain Extremities: Yes: WNL Edema: No Peripheral Pulses WNL: Yes Integumentary: Yes: WNL Neurological: Yes: WNL ...Motor Strength: WNL Psychiatric: Yes: WNL Labs: CBC, BMP 05/17/17 05:25 05/17/17 05:25 Assessment/Plan sugg switch to coreg 6.25 bid sudd switch to valsartan 40mg qdon coumadin 2 mgs hs chk labs in am cjk inr today add his inhalers
[2017-05-17] MEDS ORDERED: POTASSIUM CHLORIDE TABS 20 MEQ TABLET.ER (FP) PO ONE (11:30)
--- NOTE | 2017-05-17 11:43 | CON.PULM ---
Consult Consult Specialty:: Pulmonary Reason for Consultation:: We were called to evaluate the patient for progressive shortness of breath - History of Present Illness Chief Complaint: Shortness of breath History of Present Illness: The patient is a 76 you m w/ PMH HTN, COPD, CHF, CAD s/p triple CABG 04/27 at [facility] who comes into the ed c/o progressive shortness of breath for the last 4 days. Patient states that he was feeling well after his discharge from [facility], but started to experience shortness of breath and generalized malaise on . The patient's symptoms got progressively worse over the course of the next few days and he decided to come to the ED for evaluation after VNS detected "water in the lungs" as per the patient. Patient denies chest pain, palpitations, fever, chills or sick contacts. On admission, the patient was found to be in a-fib and was transferred to the telemetry floor for further monitoring and treatment. - History Source History Provided By: Patient, Family Member Limitations to Obtaining History: No Limitations - Past Medical History Cardio/Vascular: Yes: AFIB, CHF, HTN, [place], Other (low ejecc fx less 3o) Pulmonary: Yes: COPD Musculoskeletal: Yes: Chronic low back pain ENT: Yes: Other (h/o laryngeal ca) - Past Surgical History Past Surgical History: Yes: Bypass (x 3) - Alcohol/Substance Use Hx Alcohol Use: Yes (SOCIAL) History of Substance Use: reports: None - Smoking History Smoking history: Former smoker Have you smoked in the past 12 months: No If you are a former smoker, when did you quit?: 3 YRS AGO - Social History History of Recent Travel: No Home Medications - Allergies Allergies/Adverse Reactions: Allergies Allergy/AdvReac Type Severity Reaction Status Date / Time No Known Allergies Allergy Verified 05/16/17 13:11 - Home Medications Home Medications: Ambulatory Orders Albuterol Sulfate [Proair Respiclick] 90 mcg IH DAILY 04/20/17 Doxazosin Mesylate 2 mg PO HS 04/20/17 Furosemide 20 mg PO BID 04/20/17 Alprazolam 5 mg PO PRN MDD 5 05/17/17 Aspirin [Aspirin EC] 81 mg PO DAILY 05/17/17 Atorvastatin Ca [Lipitor] 40 mg PO HS 05/17/17 Carvedilol [Coreg] 6.25 mg PO BID 05/17/17 Docusate Sodium [Colace -] 100 mg PO TID 05/17/17 Guaifenesin [Mucinex -] 600 mg PO BID 05/17/17 Hydrocortisone 1% Cream 1 applic TP PRN 05/17/17 Oxycodone HCl/Acetaminophen [Percocet 5-325 mg Tablet] 2 tab PO PRN MDD 8 tabs 05/17/17 Valsartan 40 mg PO DAILY 05/17/17 Warfarin Na [Coumadin -] 2 mg PO HS 05/17/17 Review of Systems - Review of Systems Constitutional: reports: Weakness. denies: Chills, Fever Cardiovascular: reports: Shortness of Breath. denies: Chest Pain, Edema, Palpitations Respiratory: reports: SOB, SOB on Exertion. denies: Cough, Hemoptysis, Wheezing Physical Exam Vital Sings: Vital Signs Temperature 97.5 F L 05/17/17 08:41 Pulse Rate 98 H 05/17/17 08:41 Respiratory Rate 18 05/17/17 08:41 Blood Pressure 136/85 05/17/17 08:41 O2 Sat by Pulse Oximetry (%) 97 05/17/17 09:43 Constitutional: Yes: Well Nourished, No Distress, Calm HENT: Yes: Atraumatic, Normocephalic Neck: Yes: Supple, Trachea Midline Cardiovascular: Yes: Tachycardia, Pulse Irregular, S1, S2. No: JVD, Gallop, Murmur, Rub, S3, S4 Respiratory: Yes: Regular, Other (inspiratory crackles heard in mid and lower lung davis. ) ...Inspection: Yes: Surgical Scar (CABG scar seen in midline of chest. wound intact and healing well. ). No: Barrel Chest, Use of Accessory Muscles ...Clubbing: No Labs: CBC, BMP 05/17/17 05:25 05/17/17 05:25 Assessment/Plan The patient is a 76 yo m w/ PMH COPD, CHF, CAD s/p triple CABG on 04/27 comes into the ED c/o progressive shortness of breath over the past 4 days. Patient feels his breathing is improved today and is saturating well on 3L O2. BNP on admission 5504. Chest xray shows congestive changes and pleural effusions. #Progressive SOB likely secondary to acute exacerbation of CHF -Patient improving on current treatment -Patient on Lasix 40 BID currently, will defer to cardiology to manage -Patient on 3L NC O2 -patient not on home O2; titrate down as tolerated -daily weights -No ABX indicated at this time #COPD-controlled -Ventolin PRN -Symbicort 160/4.5 -will monitor -DVT prophylaxsis
--- NOTE | 2017-05-17 12:06 | CONS ---
DATE OF CONSULTATION: 05/17/2017 CARDIOLOGY CONSULTATION REQUESTING PHYSICIAN: Consultation requested by Clifford Maloney MD. DATE OF : 1940 CHIEF COMPLAINT: Shortness of breath. HISTORY OF PRESENT ILLNESS: This patient is a 76-year-old gentleman with history of coronary artery disease, status post recent coronary artery bypass grafting, severe left ventricular systolic dysfunction, paroxysmal atrial flutter, hypertension, hypertensive cardiovascular disease, chronic obstructive pulmonary disease, history of a cerebrovascular event, hypercholesterolemia. Patient was admitted with increasing dyspnea on exertion followed by paroxysmal nocturnal dyspnea and orthopnea, and also noted increasing pedal edema. There is no history of chest pain or discomfort either at rest or at exertion, he denies having palpitations, lightheadedness, dizziness, presyncope or syncope. Intermittent cough with clear expectoration. PAST HISTORY: As mentioned in the history of present illness. History of laryngeal carcinoma. SURGICAL HISTORY: Status post tonsillectomy. History of radiation therapy for laryngeal CA. SOCIAL HISTORY: He is retired, , has 2 sons (apparently the younger son has been diagnosed to have an abdominal cancer of undetermined etiology). He started smoking at the age of 16 and switched over the E-cigarettes approximately 3 years ago after he was diagnosed to have laryngeal carcinoma. He used to smoke 20 cigarettes per day. He has 2-3 glasses of wine. He denies excessive use of caffeine. There is no history of drug use. FAMILY HISTORY: Mother at age 74 apparently related to natural causes. Father at the age of 73 of pneumonia. One of his sisters at the age 60 of brain tumor. He has a younger brother who apparently is healthy. ALLERGIES: None reported. CURRENT MEDICATIONS: 1. Cardura 2 mg p.o. daily. 2. Warfarin currently on 2 mg p.o. daily. 3. Acetaminophen 650 mg q.4 h. p.r.n. 4. Furosemide 40 mg IV daily. 5. During hospitalization, he was started on metoprolol 12.5 mg p.o. b.i.d. REVIEW OF SYSTEMS: HEENT: No history of headaches, diplopia, blurred vision reported. No history of epistaxis. History of intermittent hoarseness. No history of tinnitus, or deafness. Cardiovascular system: See history of present illness. Respiratory system: See history of present illness. No history of hemoptysis. Gastrointestinal system: History of decreased appetite. No history of nausea, vomiting, melena, or hematemesis. No history of abdominal pain or discomfort. Neurological system: See history of present illness. No history of focal weakness, seizures, or syncope reported. Endocrine: No history of polyuria or polydipsia. No history of intolerance to cold or warm weather. Genitourinary system: History of BPH. No history of recent urgency or dysuria. History of nocturia. No history of hematuria. Musculoskeletal system: No history of myalgias or arthralgias reported. PHYSICAL EXAMINATION: General: This 76-year-old gentleman was in no acute distress. There was pallor. There is no cyanosis, clubbing, or jaundice. Vital signs: Blood pressure 136/85 mmHg. Pulse 98 beats per minute and irregularly irregular. Respirations 18 per minute. Weight 161 pounds. Neck: Supple, no jugular venous distention. Positive hepatojugular reflux. Carotids were 2+, no bruits were heard, and no thyromegaly was present. Heart: PMI was in the 5th intercostal space, no heaves or thrills, heart sounds were distant, S1 was variable, S2 was normal, grade 1/6 holosystolic murmur was heard at the apex with radiation towards the left axilla, no gallops were heard. Lungs: Fine crepitations at the right base, no expiratory wheezing heard. Chest: There was a healing midline sternotomy scar oozing from the incisional site. Expansion grossly appeared to be normal. Abdomen: Soft, nontender, no hepatosplenomegaly or palpable masses were felt. Bowel sounds were heard. No bruits were present. Extremities: No calf tenderness. There was 2+/3 tibial and ankle edema. Dorsalis pedis pulses were 1+, posterior tibial pulses could not be palpated. LABORATORY DATA: ECG: Atrial fibrillation with moderate ventricular response, occasional ventricular ectopic beats. Poor R-wave progression V1 to V3, diffuse ST and T-wave abnormalities. Previous ECG is not available for comparison. Laboratory data May 07, 2017. CBC: WBC count 5100, hemoglobin 9.9 g/dL, monocytes were elevated at 12.3%, eosinophils were elevated at 4.9%. Chemistry: Sodium 140, potassium 3.5, chloride 102, CO2 at 26 mmo/L on May 17, 2017, calcium 8.1 mg/dL. Troponins were less than 0.03 and 0.04 respectively on May 16 and May 17. BNP was elevated at 5504. INR on May 16, 2017, was 2.67. X-ray of the chest May 16, 2017, AP portable, since April 21, 2017, there are congestive changes which are new along with new bibasilar atelectasis findings and pleural fluid. There may be even bibasilar infiltrates. There is also interval sternal instrumentation since the prior study with sternal sutures and other hardware noted. IMPRESSION: 1. Clinical presentation is consistent with congestive heart failure of [place] Heart Classification 3. 2. History of severe left ventricular systolic dysfunction and enlargement. 3. New onset atrial fibrillation with controlled ventricular response. 4. Ventricular ectopic beats. 5. Hypertension, hypertensive cardiovascular disease. 6. Chronic obstructive pulmonary disease with probable exacerbation. 7. Sternal wound discharge. 8. Status post laryngeal cancer treated with radiation therapy. RECOMMENDATIONS: 1. Add ARB. 2. Correction of serum potassium. 3. Titrate beta-blockers upwards. 4. Culture sternal wound discharge. 5. Recent discharge records from PCP. 6. Pulmonary evaluation and treatment. 7. Bedside echocardiogram. PROGNOSIS: Guarded. Thank you for your referral. Yours sincerely, OUSMANE DAIGLE M.D. [id number]
--- NOTE | 2017-05-17 13:42 | PN ---
Teaching Attending Note Name of Resident: Marco A Forman ATTENDING PHYSICIAN STATEMENT I saw and evaluated the patient. I reviewed the resident's note and discussed the case with the resident. I agree with the resident's findings and plan as documented. SUBJECTIVE: 76 M, CABG x 3 on 04/27/2017 at [facility], HTN, COPD, CHF, CAD. Risk factors for OSAS/ SOLE LAYER HAND. Admitted via the ER due to progressive shortness of breath for the last 4 days. No fever or chills. No hemoptysis. No travel history or sick contacts. Intake & Output 05/14/17 05/15/17 05/16/17 05/17/17 23:59 23:59 23:59 23:59 Intake Total 10 Output Total 1400 Balance -1390 Weight 163 lb 3.2 oz 161 lb Last Vital Signs Temp Pulse Resp BP Pulse Ox 97.6 F 77 18 121/68 97 05/17/17 12:00 05/17/17 12:00 05/17/17 12:00 05/17/17 12:00 05/17/17 09:43 Active Medications Acetaminophen (Tylenol -) 325 mg PO Q4H PRN PRN Reason: PAIN Stop: 05/20/17 10:42 Acetaminophen (Tylenol -) 650 mg PO Q4H PRN PRN Reason: FEVER OR PAIN Acetaminophen (Tylenol -) 650 mg PO Q6H PRN PRN Reason: FEVER OR PAIN Albuterol Sulfate (Ventolin 0.083% Nebulizer Soln -) 1 amp NEB Q4H PRN PRN Reason: SHORT OF BREATH/WHEEZING Albuterol Sulfate (Ventolin Hfa Inhaler -) 2 puff IH Q4H PRN PRN Reason: SHORT OF BREATH/WHEEZING Amlodipine Besylate (Norvasc -) 5 mg PO DAILY [facility] Last Admin: 05/17/17 09:24 Dose: 5 mg Aspirin (Asa -) 81 mg PO DAILY [facility] Budesonide/Formoterol Fumarate (Symbicort 160/4.5mcg -) 2 puff IH BID [facility] Doxazosin Mesylate (Cardura -) 2 mg PO DAILY [facility] Last Admin: 05/17/17 09:24 Dose: 2 mg Furosemide (Lasix Injection -) 40 mg IVPUSH BIDLASIX [facility] Last Admin: 05/17/17 06:32 Dose: 40 mg Losartan Potassium (Cozaar -) 25 mg PO DAILY [facility] Metoprolol Tartrate (Lopressor -) 25 mg PO BID [facility] Oxycodone HCl (Roxicodone -) 5 mg PO Q4H PRN PRN Reason: PAIN Potassium Chloride (K-Dur -) 10 meq PO DAILY [facility] Warfarin Sodium (Coumadin -) 2 mg PO DAILY@1800 [facility] Last Admin: 05/16/17 20:30 Dose: 2 mg Constitutional: Yes: Well Nourished, No Distress HENT: Yes: Atraumatic, Normocephalic Neck: Yes: Supple, Trachea Midline Cardiovascular: Yes: Tachycardia, Pulse Irregular, S1, S2. No: JVD, Gallop, Murmur, Rub, S3, S4 Respiratory: Yes: Bibasilar Rales, no wheeze ...Inspection: Yes: Surgical Scar (CABG scar seen in midline of chest. wound intact and healing well. ). No: Barrel Chest, Use of Accessory Muscles ...Clubbing: No Labs: Laboratory Results - last 24 hr 05/16/17 05/16/17 05/16/17 14:30 14:30 19:40 WBC 6.4 RBC 3.37 L Hgb 10.5 L D Hct 32.2 L D MCV 95.4 MCH 31.1 MCHC 32.6 RDW 13.0 Plt Count 212 MPV 9.4 Neutrophils % 72.1 Lymphocytes % 12.7 D Monocytes % 9.2 Eosinophils % 4.6 H Basophils % 1.4 PT with INR 30.20 H INR 2.67 H D Sodium 137 Potassium 4.5 D Chloride 101 Carbon Dioxide 25 Anion Gap 11 BUN 17 D Creatinine 1.3 Creat Clearance w eGFR 53.96 Random Glucose 102 D Calcium 8.5 Total Bilirubin 0.6 AST 42 H D ALT 17 Alkaline Phosphatase 114 D Creatine Kinase 175 Creatine Kinase Index 0.6 CK-MB (CK-2) 1.172 Troponin I 0.03 D B-Natriuretic Peptide 5504 H Total Protein 6.2 L Albumin 2.7 L 05/17/17 05/17/17 05/17/17 05:25 05:25 09:45 WBC 5.1 RBC 3.18 L Hgb 9.9 L Hct 30.4 L MCV 95.4 MCH 31.0 MCHC 32.5 RDW 13.1 Plt Count 175 MPV 9.3 Neutrophils % 65.4 Lymphocytes % 16.2 D Monocytes % 12.3 H Eosinophils % 4.9 H Basophils % 1.2 PT with INR 31.90 H INR 2.82 H Sodium 140 Potassium 3.5 D Chloride 102 Carbon Dioxide 26 Anion Gap 12 BUN 14 Creatinine 1.3 Creat Clearance w eGFR 53.96 Random Glucose 81 D Calcium 8.1 L Total Bilirubin 0.5 AST 12 L D ALT 12 D Alkaline Phosphatase 107 Creatine Kinase Creatine Kinase Index CK-MB (CK-2) Troponin I 0.04 D B-Natriuretic Peptide Total Protein 5.4 L Albumin 2.4 L CXR : increased cardiac diameter from last admission / bilateral pleural effusions / CHF pattern Assessment/Plan Acute Decompensated CHF Recent CABG x3 04/27/2017 at [facility] COPD, not in AE (?) OSAS CAD CHF Pleural effusions Lasix BID O2 as needed BD TX PRN Symbicort BID ECHO Daily weights Monitor off ABX Will follow Thank you. Dr Austin
[2017-05-17] MEDS: oxyCODONE HCL 5 MG TABLET PO PRN (16:59)
[2017-05-17] MEDS: WARFARIN NA 2 MG TABLET (UD) PO SCH (18:13)
--- NOTE | 2017-05-17 18:20 | EKG ---
Test Reason : Blood Pressure : / mmHG Vent. Rate : 091 BPM Atrial Rate : 066 BPM P-R Int : 000 ms QRS Dur : 104 ms QT Int : 400 ms P-R-T Axes : 000 021 209 degrees QTc Int : 492 ms POOR DATA QUALITY, INTERPRETATION MAY BE ADVERSELY AFFECTED ATRIAL FIBRILLATION WITH PREMATURE VENTRICULAR OR ABERRANTLY CONDUCTED COMPLEXES NONSPECIFIC T WAVE ABNORMALITY ABNORMAL ECG WHEN COMPARED WITH ECG OF 21-APR-2017 18:23, NONSPECIFIC T WAVE ABNORMALITY NOW EVIDENT IN INFERIOR LEADS NONSPECIFIC T WAVE ABNORMALITY, WORSE IN LATERAL LEADS REPEAT EKG IF CLINICALLY INDICATED Confirmed by OUSMANE DAIGLE MD ([id number]) on 05/17/2017 6:20:26 PM Referred By: Confirmed By:OUSMANE DAIGLE MD
[2017-05-17] MEDS ORDERED: PT OWN MED DRAWER 7, Y5N ONE (21:11)
[2017-05-17] MEDS: BUDESONIDE/FORMETEROL FUMARATE 160/4.5 mcg INHALER IH SCH (21:11)
[2017-05-18] MEDS: oxyCODONE HCL 5 MG TABLET PO PRN ×2 (00:13→14:50)
[2017-05-18] MEDS: ACETAMINOPHEN 325 MG TABLET (FP) PO PRN ×2 (00:16→14:49)
[2017-05-18] MEDS: FUROSEMIDE 40 MG/4 ML INJECTABLE VIAL IVPUSH SCH ×2 (05:15→14:26)
[2017-05-18 07:48] LABS: BASOPHIL 1.2 % (0-2.0); EOSINOPHIL 6.3 % (0-4.5); MCH 31.4 pg (25.7-33.7); MCHC 32.6 g/dl (32.0-35.9); MEAN CELL VOLUME 96.3 fl (80-96); MEAN PLT VOLUME 9.3 fl (7.5-11.1); PLATELET COUNT 182 K/MM3 (134-434); RDW 13.3 % (11.9-15.9)
[2017-05-18 07:59] LABS: INR 3.02 (0.82-1.09); PROTHROMBIN TIME (PATIENT) 34.1 SEC (9.98-11.88)
[2017-05-18 08:26] LABS: ANION GAP 7 (8-16); CALCIUM 8.1 mg/dL (8.5-10.1); CO2 32 mmol/L (21-32); CREATININE 1.1 mg/dL (0.7-1.3); GLUCOSE,RANDOM 96 mg/dL (74-106)
[2017-05-18] MEDS ORDERED: PT OWN MED DRAWER 7, Y5N ONE ×3 (09:21→21:34)
[2017-05-18] MEDS: amLODIPine BESYLATE 5 MG TABLET (FP) PO SCH (09:26)
[2017-05-18] MEDS: BUDESONIDE/FORMETEROL FUMARATE 160/4.5 mcg INHALER IH SCH ×2 (09:27→21:34)
[2017-05-18] MEDS: POTASSIUM CHLORIDE TABS 10 MEQ TABLET.ER (FP) PO SCH (09:27)
[2017-05-18] MEDS: ASPIRIN 81 MG CHEWABLE TABLETS PO SCH (09:27)
[2017-05-18] MEDS: DOXAZOSIN MESYLATE 2 MG TABLET (FP) PO SCH (09:27)
[2017-05-18] MEDS: LOSARTAN POTASSIUM 25 MG TABLET PO SCH (09:27)
[2017-05-18] MEDS: METOPROLOL TARTRATE 25 MG TABLET (FP) PO SCH ×2 (09:28→21:31)
--- NOTE | 2017-05-18 11:36 | PN ---
Progress Note, Physician History of Present Illness: pulmonary alert,c/o sob,-cp - Current Medication List Current Medications: Active Medications Acetaminophen (Tylenol -) 325 mg PO Q4H PRN PRN Reason: PAIN Stop: 05/20/17 10:42 Last Admin: 05/18/17 00:16 Dose: 325 mg Acetaminophen (Tylenol -) 650 mg PO Q4H PRN PRN Reason: FEVER OR PAIN Acetaminophen (Tylenol -) 650 mg PO Q6H PRN PRN Reason: FEVER OR PAIN Albuterol Sulfate (Ventolin 0.083% Nebulizer Soln -) 1 amp NEB Q4H PRN PRN Reason: SHORT OF BREATH/WHEEZING Albuterol Sulfate (Ventolin Hfa Inhaler -) 2 puff IH Q4H PRN PRN Reason: SHORT OF BREATH/WHEEZING Amlodipine Besylate (Norvasc -) 5 mg PO DAILY [facility] Last Admin: 05/18/17 09:26 Dose: 5 mg Aspirin (Asa -) 81 mg PO DAILY [facility] Last Admin: 05/18/17 09:27 Dose: 81 mg Budesonide/Formoterol Fumarate (Symbicort 160/4.5mcg -) 2 puff IH BID [facility] Last Admin: 05/18/17 09:27 Dose: 2 puff Doxazosin Mesylate (Cardura -) 2 mg PO DAILY [facility] Last Admin: 05/18/17 09:27 Dose: 2 mg Furosemide (Lasix Injection -) 40 mg IVPUSH BIDLASIX [facility] Last Admin: 05/18/17 05:15 Dose: 40 mg Losartan Potassium (Cozaar -) 25 mg PO DAILY [facility] Last Admin: 05/18/17 09:27 Dose: 25 mg Metoprolol Tartrate (Lopressor -) 25 mg PO BID [facility] Last Admin: 05/18/17 09:28 Dose: 25 mg Oxycodone HCl (Roxicodone -) 5 mg PO Q4H PRN PRN Reason: PAIN Last Admin: 05/18/17 00:13 Dose: 5 mg Potassium Chloride (K-Dur -) 10 meq PO DAILY [facility] Last Admin: 05/18/17 09:27 Dose: 10 meq Warfarin Sodium (Coumadin -) 2 mg PO DAILY@1800 [facility] Last Admin: 05/17/17 18:13 Dose: 2 mg Zolpidem Tartrate (Ambien -) 5 mg PO HS PRN PRN Reason: INSOMNIA - Objective Vital Signs: Vital Signs Temperature 98.5 F 05/18/17 08:21 Pulse Rate 78 05/18/17 08:21 Respiratory Rate 18 05/18/17 08:21 Blood Pressure 118/88 05/18/17 08:21 O2 Sat by Pulse Oximetry (%) 97 05/18/17 09:00 Constitutional: Yes: Well Nourished, Calm Eyes: Yes: WNL HENT: Yes: WNL Neck: Yes: WNL Cardiovascular: Yes: Regular Rate and Rhythm, S1, S2 Respiratory: Yes: Rales (crackles on left 1/2 , R 1/3 UP) Gastrointestinal: Yes: Normal Bowel Sounds, Soft Extremities: Yes: WNL Edema: No Labs: CBC, BMP 05/18/17 05:40 05/18/17 05:40 INR, PTT INR 3.02 (0.82-1.09) H 05/18/17 05:40 - ....Imaging Chest X-ray: Report Reviewed, Image Reviewed Problem List - Problems (1) S/P CABG (coronary artery bypass graft) Code(s): Z95.1 - PRESENCE OF AORTOCORONARY BYPASS GRAFT (2) Acute dyspnea Code(s): R06.00 - DYSPNEA, UNSPECIFIED (3) CHF (congestive heart failure) Code(s): I50.9 - HEART FAILURE, UNSPECIFIED Qualifiers: Congestive heart failure type: combined Congestive heart failure chronicity : acute Qualified Code(s): I50.41 - Acute combined systolic (congestive) and diastolic (congestive) heart failure (4) COPD (chronic obstructive pulmonary disease) Code(s): J44.9 - CHRONIC OBSTRUCTIVE PULMONARY DISEASE, UNSPECIFIED Qualifiers: COPD type: COPD with acute exacerbation Qualified Code(s): J44.1 - Chronic obstructive pulmonary disease with (acute) exacerbation Assessment/Plan Assessment/Plan Acute Decompensated CHF Recent CABG x3 04/27/2017 at [facility] COPD, not in AE (?) OSAS CAD CHF Pleural effusions Lasix BID O2 as needed BD TX PRN Symbicort BID ECHO Daily weights Monitor off ABX DR JONES
--- NOTE | 2017-05-18 13:47 | PN ---
Progress Note, Physician Chief Complaint: recombent nocternal othopynea no other complaints can walk no problem add aldactone 25 mg chk inr in am? d/c in am - Current Medication List Current Medications: Active Medications Acetaminophen (Tylenol -) 325 mg PO Q4H PRN PRN Reason: PAIN Stop: 05/20/17 10:42 Last Admin: 05/18/17 00:16 Dose: 325 mg Acetaminophen (Tylenol -) 650 mg PO Q4H PRN PRN Reason: FEVER OR PAIN Acetaminophen (Tylenol -) 650 mg PO Q6H PRN PRN Reason: FEVER OR PAIN Albuterol Sulfate (Ventolin 0.083% Nebulizer Soln -) 1 amp NEB Q4H PRN PRN Reason: SHORT OF BREATH/WHEEZING Albuterol Sulfate (Ventolin Hfa Inhaler -) 2 puff IH Q4H PRN PRN Reason: SHORT OF BREATH/WHEEZING Amlodipine Besylate (Norvasc -) 5 mg PO DAILY [facility] Last Admin: 05/18/17 09:26 Dose: 5 mg Aspirin (Asa -) 81 mg PO DAILY [facility] Last Admin: 05/18/17 09:27 Dose: 81 mg Budesonide/Formoterol Fumarate (Symbicort 160/4.5mcg -) 2 puff IH BID [facility] Last Admin: 05/18/17 09:27 Dose: 2 puff Doxazosin Mesylate (Cardura -) 2 mg PO DAILY [facility] Last Admin: 05/18/17 09:27 Dose: 2 mg Furosemide (Lasix Injection -) 40 mg IVPUSH BIDLASIX [facility] Last Admin: 05/18/17 05:15 Dose: 40 mg Losartan Potassium (Cozaar -) 25 mg PO DAILY [facility] Last Admin: 05/18/17 09:27 Dose: 25 mg Metoprolol Tartrate (Lopressor -) 25 mg PO BID [facility] Last Admin: 05/18/17 09:28 Dose: 25 mg Oxycodone HCl (Roxicodone -) 5 mg PO Q4H PRN PRN Reason: PAIN Last Admin: 05/18/17 00:13 Dose: 5 mg Potassium Chloride (K-Dur -) 10 meq PO DAILY [facility] Last Admin: 05/18/17 09:27 Dose: 10 meq Warfarin Sodium (Coumadin -) 2 mg PO DAILY@1800 [facility] Last Admin: 05/17/17 18:13 Dose: 2 mg Zolpidem Tartrate (Ambien -) 5 mg PO HS PRN PRN Reason: INSOMNIA - Objective Vital Signs: Vital Signs Temperature 98.5 F 05/18/17 08:21 Pulse Rate 96 H 05/18/17 09:40 Respiratory Rate 18 05/18/17 08:21 Blood Pressure 118/88 05/18/17 08:21 O2 Sat by Pulse Oximetry (%) 97 05/18/17 09:40 Labs: CBC, BMP 05/18/17 05:40 05/18/17 05:40 INR, PTT INR 3.02 (0.82-1.09) H 05/18/17 05:40
--- NOTE | 2017-05-18 14:54 | PN ---
Progress Note (short form) - Note Progress Note: 76 year old male known case of CAD, ischemic cardiomyopathy, severe mitral and tricuspid reguritation, S/P CABG, COPD, admitted with progressive SOB, PND and pedal edema. No chest pain or discomfort. Since admission there is dyspnea. Active Medications Acetaminophen (Tylenol -) 325 mg PO Q4H PRN PRN Reason: PAIN Stop: 05/20/17 10:42 Last Admin: 05/18/17 14:49 Dose: 325 mg Acetaminophen (Tylenol -) 650 mg PO Q4H PRN PRN Reason: FEVER OR PAIN Acetaminophen (Tylenol -) 650 mg PO Q6H PRN PRN Reason: FEVER OR PAIN Albuterol Sulfate (Ventolin 0.083% Nebulizer Soln -) 1 amp NEB Q4H PRN PRN Reason: SHORT OF BREATH/WHEEZING Albuterol Sulfate (Ventolin Hfa Inhaler -) 2 puff IH Q4H PRN PRN Reason: SHORT OF BREATH/WHEEZING Amlodipine Besylate (Norvasc -) 5 mg PO DAILY [facility] Last Admin: 05/18/17 09:26 Dose: 5 mg Aspirin (Asa -) 81 mg PO DAILY [facility] Last Admin: 05/18/17 09:27 Dose: 81 mg Budesonide/Formoterol Fumarate (Symbicort 160/4.5mcg -) 2 puff IH BID [facility] Last Admin: 05/18/17 09:27 Dose: 2 puff Doxazosin Mesylate (Cardura -) 2 mg PO DAILY [facility] Last Admin: 05/18/17 09:27 Dose: 2 mg Furosemide (Lasix Injection -) 40 mg IVPUSH BIDLASIX [facility] Last Admin: 05/18/17 14:26 Dose: 40 mg Losartan Potassium (Cozaar -) 25 mg PO DAILY [facility] Last Admin: 05/18/17 09:27 Dose: 25 mg Metoprolol Tartrate (Lopressor -) 25 mg PO BID [facility] Last Admin: 05/18/17 09:28 Dose: 25 mg Oxycodone HCl (Roxicodone -) 5 mg PO Q4H PRN PRN Reason: PAIN Last Admin: 05/18/17 14:50 Dose: 5 mg Potassium Chloride (K-Dur -) 10 meq PO DAILY [facility] Last Admin: 05/18/17 09:27 Dose: 10 meq Spironolactone (Aldactone -) 25 mg PO DAILY [facility] Warfarin Sodium (Coumadin -) 2 mg PO DAILY@1800 [facility] Last Admin: 05/17/17 18:13 Dose: 2 mg Zolpidem Tartrate (Ambien -) 5 mg PO HS PRN PRN Reason: INSOMNIA 76 year old male wasin no distress, no pallor cyanosis, clubbing or jaundice. Last Vital Signs Temp Pulse Resp BP Pulse Ox 98.8 F 90 18 152/53 97 05/18/17 13:49 05/18/17 13:49 05/18/17 13:49 05/18/17 13:49 05/18/17 09:40 NECK: Supple, no JVD, carotids 2+, no bruits heard. HEART: Distant sounds, S1 and S2 are normal, faint apical systolic murmur I/, no gallops. LUNGS: Fine creps at the right base. CHEST: Healing surgical wound. ABDOMEN: Soft, nontender, no hepatomegaly. EXTREMITIES: No calf tenderness, 1+ bilateral ankle edema. CBC, BMP 05/18/17 05:40 05/18/17 05:40 1. CHF, resolving. 2. CAD,S/P CABG. 3. Severe LV systolic dysfunction. 4. Hypertension. 5. COPD. 6. OSAS. 7. Severe mitral regurgitation. 8. Tricuspid regurgitation. RECOMMENDATIONS: 1. Add Aldactone 25mg. po daily 2. Close monitoring of electrolytes. 3. Increase ambulation.
[2017-05-18] MEDS: WARFARIN NA 2 MG TABLET (UD) PO SCH (17:47)
[2017-05-19] MEDS: ACETAMINOPHEN 325 MG TABLET (FP) PO PRN ×2 (05:04→20:05)
[2017-05-19] MEDS: FUROSEMIDE 40 MG/4 ML INJECTABLE VIAL IVPUSH SCH (05:04)
[2017-05-19] MEDS: oxyCODONE HCL 5 MG TABLET PO PRN ×2 (05:04→20:05)
[2017-05-19 07:22] LABS: ANION GAP 8 (8-16); CALCIUM 8.2 mg/dL (8.5-10.1); CO2 31 mmol/L (21-32); CREATININE 1.1 mg/dL (0.7-1.3); GLUCOSE,RANDOM 94 mg/dL (74-106)
[2017-05-19 08:05] LABS: INR 3.05 (0.82-1.09); PROTHROMBIN TIME (PATIENT) 34.5 SEC (9.98-11.88)
[2017-05-19 08:13] LABS: BASOPHIL 1.1 % (0-2.0); EOSINOPHIL 6.1 % (0-4.5); MCH 32.2 pg (25.7-33.7); MCHC 33.6 g/dl (32.0-35.9); MEAN CELL VOLUME 95.7 fl (80-96); MEAN PLT VOLUME 9.5 fl (7.5-11.1); PLATELET COUNT 163 K/MM3 (134-434); WHITE BLOOD COUNT 5.1 K/mm3 (4.0-10.0)
--- NOTE | 2017-05-19 09:45 | PN ---
Progress Note, Physician History of Present Illness: pulmonary alert,feeling better ,less dyspneic,-cp. - Current Medication List Current Medications: Active Medications Acetaminophen (Tylenol -) 325 mg PO Q4H PRN PRN Reason: PAIN Stop: 05/20/17 10:42 Last Admin: 05/19/17 05:04 Dose: 325 mg Acetaminophen (Tylenol -) 650 mg PO Q4H PRN PRN Reason: FEVER OR PAIN Acetaminophen (Tylenol -) 650 mg PO Q6H PRN PRN Reason: FEVER OR PAIN Albuterol Sulfate (Ventolin 0.083% Nebulizer Soln -) 1 amp NEB Q4H PRN PRN Reason: SHORT OF BREATH/WHEEZING Albuterol Sulfate (Ventolin Hfa Inhaler -) 2 puff IH Q4H PRN PRN Reason: SHORT OF BREATH/WHEEZING Amlodipine Besylate (Norvasc -) 5 mg PO DAILY [facility] Last Admin: 05/18/17 09:26 Dose: 5 mg Aspirin (Asa -) 81 mg PO DAILY [facility] Last Admin: 05/18/17 09:27 Dose: 81 mg Budesonide/Formoterol Fumarate (Symbicort 160/4.5mcg -) 2 puff IH BID [facility] Last Admin: 05/18/17 21:34 Dose: 2 puff Doxazosin Mesylate (Cardura -) 2 mg PO DAILY [facility] Last Admin: 05/18/17 09:27 Dose: 2 mg Furosemide (Lasix Injection -) 40 mg IVPUSH BIDLASIX [facility] Last Admin: 05/19/17 05:04 Dose: 40 mg Losartan Potassium (Cozaar -) 25 mg PO DAILY [facility] Last Admin: 05/18/17 09:27 Dose: 25 mg Metoprolol Tartrate (Lopressor -) 25 mg PO BID [facility] Last Admin: 05/18/17 21:31 Dose: 25 mg Oxycodone HCl (Roxicodone -) 5 mg PO Q4H PRN PRN Reason: PAIN Last Admin: 05/19/17 05:04 Dose: 5 mg Potassium Chloride (K-Dur -) 10 meq PO DAILY [facility] Last Admin: 05/18/17 09:27 Dose: 10 meq Spironolactone (Aldactone -) 25 mg PO DAILY [facility] Warfarin Sodium (Coumadin -) 2 mg PO DAILY@1800 [facility] Last Admin: 05/18/17 17:47 Dose: 2 mg Zolpidem Tartrate (Ambien -) 5 mg PO HS PRN PRN Reason: INSOMNIA - Objective Vital Signs: Vital Signs Temperature 98.4 F 05/19/17 02:00 Pulse Rate 76 05/19/17 06:00 Respiratory Rate 20 05/19/17 06:00 Blood Pressure 133/68 05/19/17 06:00 O2 Sat by Pulse Oximetry (%) 95 05/18/17 20:23 Constitutional: Yes: Well Nourished, Calm Eyes: Yes: WNL HENT: Yes: WNL Neck: Yes: WNL Cardiovascular: Yes: Pulse Irregular, S1, S2 Respiratory: Yes: Rales (bobasilar rales) Gastrointestinal: Yes: Normal Bowel Sounds, Soft Extremities: Yes: WNL Edema: No Labs: CBC, BMP 05/19/17 05:10 05/19/17 05:10 INR, PTT INR 3.05 (0.82-1.09) H 05/19/17 05:10 Problem List - Problems (1) S/P CABG (coronary artery bypass graft) Code(s): Z95.1 - PRESENCE OF AORTOCORONARY BYPASS GRAFT (2) Acute dyspnea Code(s): R06.00 - DYSPNEA, UNSPECIFIED (3) CHF (congestive heart failure) Code(s): I50.9 - HEART FAILURE, UNSPECIFIED Qualifiers: Congestive heart failure type: combined Congestive heart failure chronicity : acute Qualified Code(s): I50.41 - Acute combined systolic (congestive) and diastolic (congestive) heart failure (4) COPD (chronic obstructive pulmonary disease) Code(s): J44.9 - CHRONIC OBSTRUCTIVE PULMONARY DISEASE, UNSPECIFIED Qualifiers: COPD type: COPD with acute exacerbation Qualified Code(s): J44.1 - Chronic obstructive pulmonary disease with (acute) exacerbation Assessment/Plan Assessment/Plan Acute Decompensated CHF improving Recent CABG x3 04/27/2017 at [facility] COPD, not in AE (?) OSAS CAD CHF Pleural effusions Continue Lasix BID O2 as needed BD TX PRN Symbicort BID ECHO Daily weights DR JONES
[2017-05-19] MEDS ORDERED: POTASSIUM CHLORIDE ORAL LIQUID 20 MEQ/15 ML PO ONE (10:15)
[2017-05-19] MEDS ORDERED: PT OWN MED DRAWER 7, Y5N ONE (10:24)
[2017-05-19] MEDS: METOPROLOL TARTRATE 25 MG TABLET (FP) PO SCH ×2 (10:27→21:30)
[2017-05-19] MEDS: ASPIRIN 81 MG CHEWABLE TABLETS PO SCH (10:27)
[2017-05-19] MEDS: amLODIPine BESYLATE 5 MG TABLET (FP) PO SCH (10:27)
[2017-05-19] MEDS: POTASSIUM CHLORIDE TABS 10 MEQ TABLET.ER (FP) PO SCH (10:27)
[2017-05-19] MEDS: DOXAZOSIN MESYLATE 2 MG TABLET (FP) PO SCH (10:27)
[2017-05-19] MEDS: LOSARTAN POTASSIUM 25 MG TABLET PO SCH (10:27)
[2017-05-19] MEDS: SPIRONOLACTONE 25 MG TABLET (FP) PO SCH (10:27)
[2017-05-19] MEDS: BUDESONIDE/FORMETEROL FUMARATE 160/4.5 mcg INHALER IH SCH ×2 (10:29→21:30)
--- NOTE | 2017-05-19 11:25 | PN ---
Progress Note, Physician - Current Medication List Current Medications: Active Medications Acetaminophen (Tylenol -) 325 mg PO Q4H PRN PRN Reason: PAIN Stop: 05/20/17 10:42 Last Admin: 05/19/17 05:04 Dose: 325 mg Acetaminophen (Tylenol -) 650 mg PO Q4H PRN PRN Reason: FEVER OR PAIN Acetaminophen (Tylenol -) 650 mg PO Q6H PRN PRN Reason: FEVER OR PAIN Albuterol Sulfate (Ventolin 0.083% Nebulizer Soln -) 1 amp NEB Q4H PRN PRN Reason: SHORT OF BREATH/WHEEZING Albuterol Sulfate (Ventolin Hfa Inhaler -) 2 puff IH Q4H PRN PRN Reason: SHORT OF BREATH/WHEEZING Amlodipine Besylate (Norvasc -) 5 mg PO DAILY [facility] Last Admin: 05/19/17 10:27 Dose: 5 mg Aspirin (Asa -) 81 mg PO DAILY [facility] Last Admin: 05/19/17 10:27 Dose: 81 mg Budesonide/Formoterol Fumarate (Symbicort 160/4.5mcg -) 2 puff IH BID [facility] Last Admin: 05/19/17 10:29 Dose: 2 puff Doxazosin Mesylate (Cardura -) 2 mg PO DAILY [facility] Last Admin: 05/19/17 10:27 Dose: 2 mg Furosemide (Lasix Injection -) 40 mg IVPUSH BIDLASIX [facility] Last Admin: 05/19/17 05:04 Dose: 40 mg Losartan Potassium (Cozaar -) 25 mg PO DAILY [facility] Last Admin: 05/19/17 10:27 Dose: 25 mg Metoprolol Tartrate (Lopressor -) 25 mg PO BID [facility] Last Admin: 05/19/17 10:27 Dose: 25 mg Oxycodone HCl (Roxicodone -) 5 mg PO Q4H PRN PRN Reason: PAIN Last Admin: 05/19/17 05:04 Dose: 5 mg Potassium Chloride (K-Dur -) 10 meq PO DAILY [facility] Last Admin: 05/19/17 10:27 Dose: 10 meq Spironolactone (Aldactone -) 25 mg PO DAILY [facility] Last Admin: 05/19/17 10:27 Dose: 25 mg Warfarin Sodium (Coumadin -) 2 mg PO DAILY@1800 [facility] Last Admin: 05/18/17 17:47 Dose: 2 mg Zolpidem Tartrate (Ambien -) 5 mg PO HS PRN PRN Reason: INSOMNIA - Objective Vital Signs: Vital Signs Temperature 98.4 F 05/19/17 02:00 Pulse Rate 76 05/19/17 06:00 Respiratory Rate 20 05/19/17 06:00 Blood Pressure 133/68 05/19/17 06:00 O2 Sat by Pulse Oximetry (%) 95 05/18/17 20:23 Labs: CBC, BMP 05/19/17 05:10 05/19/17 05:10 INR, PTT INR 3.05 (0.82-1.09) H 05/19/17 05:10 Assessment/Plan pt denies sob at [facility] ov[facility] ambulating without sob on oxygen vss no temp po lasix no oxygen let pt walk see if sob back ? d/c in am with oxygen home or not k replaced
[2017-05-19] MEDS: FUROSEMIDE 40 MG TABLET (FP) PO SCH ×2 (11:40→13:41)
--- NOTE | 2017-05-19 12:44 | PN ---
Progress Note (short form) - Note Progress Note: 76 year old male known case of CAD, ischemic cardiomyopathy, severe mitral and tricuspid reguritation, S/P CABG, COPD, admitted with progressive SOB, PND and pedal edema. No chest pain or discomfort. No further dyspnea OOB in a chair, feels better. No palpitations reported. Nearly 3 lbs. weight loss. Active Medications Generic Name Dose Route Start Last Admin Trade Name Freq PRN Reason Stop Dose Admin Acetaminophen 325 mg 05/17/17 10:43 05/19/17 05:04 Tylenol - PO 05/20/17 10:42 325 mg Q4H PRN Administration PAIN Acetaminophen 650 mg 05/17/17 11:29 Tylenol - PO Q4H PRN FEVER OR PAIN Acetaminophen 650 mg 05/17/17 11:30 Tylenol - PO Q6H PRN FEVER OR PAIN Albuterol Sulfate 1 amp 05/17/17 10:38 Ventolin 0.083% Nebulizer Soln - NEB Q4H PRN SHORT OF BREATH/WHEEZING Albuterol Sulfate 2 puff 05/17/17 10:38 Ventolin Hfa Inhaler - IH Q4H PRN SHORT OF BREATH/WHEEZING Amlodipine Besylate 5 mg 05/17/17 10:00 05/19/17 10:27 Norvasc - PO 5 mg DAILY [facility] Administration Aspirin 81 mg 05/18/17 10:00 05/19/17 10:27 Asa - PO 81 mg DAILY [facility] Administration Budesonide/Formoterol Fumarate 2 puff 05/17/17 22:00 05/19/17 10:29 Symbicort 160/4.5mcg - IH 2 puff BID [facility] Administration Doxazosin Mesylate 2 mg 05/17/17 10:00 05/19/17 10:27 Cardura - PO 2 mg DAILY [facility] Administration Furosemide 40 mg 05/19/17 11:30 05/19/17 11:40 Lasix - PO Not Given BID@0600,1400 [facility] Losartan Potassium 25 mg 05/18/17 10:00 05/19/17 10:27 Cozaar - PO 25 mg DAILY [facility] Administration Metoprolol Tartrate 25 mg 05/17/17 22:00 05/19/17 10:27 Lopressor - PO 25 mg BID [facility] Administration Oxycodone HCl 5 mg 05/17/17 10:43 05/19/17 05:04 Roxicodone - PO 5 mg Q4H PRN Administration PAIN Potassium Chloride 10 meq 05/18/17 10:00 05/19/17 10:27 K-Dur - PO 10 meq DAILY [facility] Administration Spironolactone 25 mg 05/19/17 10:00 05/19/17 10:27 Aldactone - PO 25 mg DAILY [facility] Administration Warfarin Sodium 2 mg 05/16/17 19:15 05/18/17 17:47 Coumadin - PO 2 mg DAILY@1800 [facility] Administration Zolpidem Tartrate 5 mg 05/18/17 10:03 Ambien - PO HS PRN INSOMNIA 76 year old male wasin no distress, no pallor cyanosis, clubbing or jaundice. macular rash on the back, abdomenand upperextremities Last Vital Signs Temp Pulse Resp BP Pulse Ox 98.4 F 76 20 133/68 96 05/19/17 02:00 05/19/17 06:00 05/19/17 06:00 05/19/17 06:00 05/19/17 09:00 Intake & Output 05/16/17 05/17/17 05/18/17 05/19/17 23:59 23:59 23:59 23:59 Intake Total 260 665 Output Total 1700 450 Balance -1440 665 -450 Weight 163 lb 3.2 oz 161 lb 157 lb 6.4 oz 157 lb 6 oz NECK: Supple, no JVD, carotids 2+, no bruits heard. HEART: Distant sounds, S1 and S2 are normal, faint apical systolic murmur I/, no gallops. LUNGS: Fine creps at the right base. CHEST: Healing surgical wound. ABDOMEN: Soft, nontender, no hepatomegaly, no palpable masses felt. EXTREMITIES: No calf tenderness, no pedal edema. CBC, BMP 05/18/17 05:40 05/18/17 05:40 1. CHF, resolving. 2. CAD,S/P CABG. 3. Severe LV systolic dysfunction. 4. Hypertension. 5. COPD. 6. OSAS. 7. Severe mitral regurgitation. 8. Tricuspid regurgitation. 9. Skin rash, etiology to be determined: a). May be related to medications. RECOMMENDATIONS: 1. Evaluation of rash. 2. Close monitoring of electrolytes. 3. Increase ambulation. 4. May have to d/c potassium while patient is on aldactone.
[2017-05-19] MEDS: ALBUTEROL SO4 0.083% IH SOL 2.5 MG/3 ML VIAL.NEB. NEB PRN ×2 (16:40→22:05)
[2017-05-19] MEDS ORDERED: diazePAM 5 MG TABLET PO ONE (16:45)
[2017-05-19] MEDS: WARFARIN NA 2 MG TABLET (UD) PO SCH (17:14)
[2017-05-19] MEDS: ZOLPIDEM TARTRATE 5 MG TABLET PO PRN (20:06)
[2017-05-20] MEDS: ACETAMINOPHEN 325 MG TABLET (FP) PO PRN (00:55)
[2017-05-20] MEDS: oxyCODONE HCL 5 MG TABLET PO PRN (00:55)
[2017-05-20] MEDS ORDERED: FUROSEMIDE 40 MG/4 ML INJECTABLE VIAL ONE (01:08)
[2017-05-20] MEDS ORDERED: FUROSEMIDE 40 MG/4 ML INJECTABLE VIAL IVPUSH ONE (01:15)
[2017-05-20] MEDS: FUROSEMIDE 40 MG TABLET (FP) PO SCH ×2 (06:31→14:36)
[2017-05-20] MEDS: ALBUTEROL SO4 0.083% IH SOL 2.5 MG/3 ML VIAL.NEB. NEB PRN (06:40)
[2017-05-20 06:48] LABS: INR 3.42 (0.82-1.09); PROTHROMBIN TIME (PATIENT) 38.6 SEC (9.98-11.88)
[2017-05-20 06:59] LABS: BASOPHIL 1.1 % (0-2.0); EOSINOPHIL 7.9 % (0-4.5); MCH 31.3 pg (25.7-33.7); MCHC 32.6 g/dl (32.0-35.9); MEAN CELL VOLUME 96.2 fl (80-96); MEAN PLT VOLUME 9.3 fl (7.5-11.1); NEUTROPHILS 54.1 % (42.8-82.8); PLATELET COUNT 149 K/MM3 (134-434); RDW 13.3 % (11.9-15.9); WHITE BLOOD COUNT 4.4 K/mm3 (4.0-10.0)
[2017-05-20 07:17] LABS: ANION GAP 9 (8-16); CALCIUM 7.8 mg/dL (8.5-10.1); CO2 28 mmol/L (21-32); GLUCOSE,RANDOM 91 mg/dL (74-106)
[2017-05-20 07:19] LABS: CREATININE 1.1 mg/dL (0.7-1.3)
[2017-05-20] MEDS ORDERED: HYDROCORTISONE 2.5% LOTION - 1 BOTTLE TP PRN (08:35)
--- NOTE | 2017-05-20 10:23 | PN ---
Progress Note, Physician History of Present Illness: PULMONARY ALERT,FEELING BETTER,LESS DYSPNEIC,-CP,-COUGH,SLEPT WELL - Current Medication List Current Medications: Active Medications Acetaminophen (Tylenol -) 325 mg PO Q4H PRN PRN Reason: PAIN Stop: 05/20/17 10:42 Last Admin: 05/20/17 00:55 Dose: 325 mg Acetaminophen (Tylenol -) 650 mg PO Q4H PRN PRN Reason: FEVER OR PAIN Acetaminophen (Tylenol -) 650 mg PO Q6H PRN PRN Reason: FEVER OR PAIN Albuterol Sulfate (Ventolin 0.083% Nebulizer Soln -) 1 amp NEB Q4H PRN PRN Reason: SHORT OF BREATH/WHEEZING Last Admin: 05/20/17 06:40 Dose: 1 amp Albuterol Sulfate (Ventolin Hfa Inhaler -) 2 puff IH Q4H PRN PRN Reason: SHORT OF BREATH/WHEEZING Amlodipine Besylate (Norvasc -) 5 mg PO DAILY [facility] Last Admin: 05/19/17 10:27 Dose: 5 mg Aspirin (Asa -) 81 mg PO DAILY [facility] Last Admin: 05/19/17 10:27 Dose: 81 mg Budesonide/Formoterol Fumarate (Symbicort 160/4.5mcg -) 2 puff IH BID [facility] Last Admin: 05/19/17 21:30 Dose: 2 puff Doxazosin Mesylate (Cardura -) 2 mg PO DAILY [facility] Last Admin: 05/19/17 10:27 Dose: 2 mg Furosemide (Lasix -) 40 mg PO BID@0600,1400 [facility] Last Admin: 05/20/17 06:31 Dose: 40 mg Hydrocortisone (Hytone 2.5% Lotion -) 1 applic TP BID PRN PRN Reason: ANXIETY Losartan Potassium (Cozaar -) 25 mg PO DAILY [facility] Last Admin: 05/19/17 10:27 Dose: 25 mg Metoprolol Tartrate (Lopressor -) 25 mg PO BID [facility] Last Admin: 05/19/17 21:30 Dose: 25 mg Oxycodone HCl (Roxicodone -) 5 mg PO Q4H PRN PRN Reason: PAIN Last Admin: 05/20/17 00:55 Dose: 5 mg Potassium Chloride (K-Dur -) 10 meq PO DAILY [facility] Last Admin: 05/19/17 10:27 Dose: 10 meq Sertraline HCl (Zoloft -) 50 mg PO DAILY [facility] Spironolactone (Aldactone -) 25 mg PO DAILY [facility] Last Admin: 05/19/17 10:27 Dose: 25 mg Warfarin Sodium (Coumadin -) 2 mg PO DAILY@1800 [facility] Last Admin: 05/19/17 17:14 Dose: 2 mg Zolpidem Tartrate (Ambien -) 5 mg PO HS PRN PRN Reason: INSOMNIA Last Admin: 05/19/17 20:06 Dose: 5 mg - Objective Vital Signs: Vital Signs Temperature 98.2 F 05/20/17 06:00 Pulse Rate 107 H 05/20/17 06:00 Respiratory Rate 20 05/20/17 06:00 Blood Pressure 135/83 05/20/17 06:00 O2 Sat by Pulse Oximetry (%) 96 05/19/17 21:00 Constitutional: Yes: Well Nourished, Calm Eyes: Yes: WNL HENT: Yes: WNL Neck: Yes: WNL Cardiovascular: Yes: Pulse Irregular, S1, S2 Respiratory: Yes: Rales (CRACKLES LEFT BASE) Gastrointestinal: Yes: Normal Bowel Sounds, Soft Extremities: Yes: WNL Edema: No Labs: CBC, BMP 05/20/17 05:00 05/20/17 05:00 INR, PTT INR 3.42 (0.82-1.09) H 05/20/17 05:00 Problem List - Problems (1) S/P CABG (coronary artery bypass graft) Code(s): Z95.1 - PRESENCE OF AORTOCORONARY BYPASS GRAFT (2) Acute dyspnea Code(s): R06.00 - DYSPNEA, UNSPECIFIED (3) CHF (congestive heart failure) Code(s): I50.9 - HEART FAILURE, UNSPECIFIED Qualifiers: Congestive heart failure type: combined Congestive heart failure chronicity : acute Qualified Code(s): I50.41 - Acute combined systolic (congestive) and diastolic (congestive) heart failure (4) COPD (chronic obstructive pulmonary disease) Code(s): J44.9 - CHRONIC OBSTRUCTIVE PULMONARY DISEASE, UNSPECIFIED Qualifiers: COPD type: COPD with acute exacerbation Qualified Code(s): J44.1 - Chronic obstructive pulmonary disease with (acute) exacerbation Assessment/Plan Assessment/Plan Acute Decompensated CHF improving Recent CABG x3 04/27/2017 at [facility] COPD, not in AE (?) OSAS CAD CHF PULMONARY HTN Pleural effusions Lasix PO BID O2 as needed BD TX PRN Symbicort BID Daily weights AC as per INR Sleep screen DR JONES
[2017-05-20] MEDS: SERTRALINE HCL 50 MG TABLET (FP) PO SCH (10:35)
[2017-05-20] MEDS: POTASSIUM CHLORIDE TABS 10 MEQ TABLET.ER (FP) PO SCH (10:35)
[2017-05-20] MEDS: METOPROLOL TARTRATE 25 MG TABLET (FP) PO SCH ×2 (10:35→22:21)
[2017-05-20] MEDS: LOSARTAN POTASSIUM 25 MG TABLET PO SCH (10:35)
[2017-05-20] MEDS: amLODIPine BESYLATE 5 MG TABLET (FP) PO SCH (10:35)
[2017-05-20] MEDS: ASPIRIN 81 MG CHEWABLE TABLETS PO SCH (10:36)
[2017-05-20] MEDS: SPIRONOLACTONE 25 MG TABLET (FP) PO SCH (10:36)
[2017-05-20] MEDS: DOXAZOSIN MESYLATE 2 MG TABLET (FP) PO SCH (10:37)
[2017-05-20] MEDS: BUDESONIDE/FORMETEROL FUMARATE 160/4.5 mcg INHALER IH SCH ×2 (10:45→22:22)
--- NOTE | 2017-05-20 14:22 | PN ---
Progress Note (short form) - Note Progress Note: 76 year old male known case of CAD, ischemic cardiomyopathy, severe mitral and tricuspid reguritation, S/P CABG, COPD, admitted with progressive CHF. No further SOB, PND or orthopnea, No chest pain or discomfort. rash is persistent and diffuse. Active Medications Acetaminophen (Tylenol -) 650 mg PO Q4H PRN PRN Reason: FEVER OR PAIN Acetaminophen (Tylenol -) 650 mg PO Q6H PRN PRN Reason: FEVER OR PAIN Albuterol Sulfate (Ventolin 0.083% Nebulizer Soln -) 1 amp NEB Q4H PRN PRN Reason: SHORT OF BREATH/WHEEZING Last Admin: 05/20/17 06:40 Dose: 1 amp Albuterol Sulfate (Ventolin Hfa Inhaler -) 2 puff IH Q4H PRN PRN Reason: SHORT OF BREATH/WHEEZING Amlodipine Besylate (Norvasc -) 5 mg PO DAILY [facility] Last Admin: 05/20/17 10:35 Dose: 5 mg Aspirin (Asa -) 81 mg PO DAILY [facility] Last Admin: 05/20/17 10:36 Dose: 81 mg Budesonide/Formoterol Fumarate (Symbicort 160/4.5mcg -) 2 puff IH BID [facility] Last Admin: 05/20/17 10:45 Dose: 2 puff Doxazosin Mesylate (Cardura -) 2 mg PO DAILY [facility] Last Admin: 05/20/17 10:37 Dose: 2 mg Furosemide (Lasix -) 40 mg PO BID@0600,1400 [facility] Last Admin: 05/20/17 06:31 Dose: 40 mg Hydrocortisone (Hytone 2.5% Lotion -) 1 applic TP BID PRN PRN Reason: ANXIETY Losartan Potassium (Cozaar -) 25 mg PO DAILY [facility] Last Admin: 05/20/17 10:35 Dose: 25 mg Metoprolol Tartrate (Lopressor -) 25 mg PO BID [facility] Last Admin: 05/20/17 10:35 Dose: 25 mg Potassium Chloride (K-Dur -) 10 meq PO DAILY [facility] Last Admin: 05/20/17 10:35 Dose: 10 meq Sertraline HCl (Zoloft -) 50 mg PO DAILY [facility] Last Admin: 05/20/17 10:35 Dose: 50 mg Spironolactone (Aldactone -) 25 mg PO DAILY [facility] Last Admin: 05/20/17 10:36 Dose: 25 mg Warfarin Sodium (Coumadin -) 2 mg PO DAILY@1800 [facility] Last Admin: 05/19/17 17:14 Dose: 2 mg Zolpidem Tartrate (Ambien -) 5 mg PO HS PRN PRN Reason: INSOMNIA Last Admin: 05/19/17 20:06 Dose: 5 mg 76 year old male was in no distress, no pallor cyanosis, clubbing or jaundice. macular rash on the back, abdomen and upper extremities. Last Vital Signs Temp Pulse Resp BP Pulse Ox 98 F 98 H 18 128/88 95 05/20/17 10:30 05/20/17 10:30 05/20/17 10:30 05/20/17 10:30 05/20/17 09:00 Intake & Output 05/17/17 05/18/17 05/19/17 05/20/17 23:59 23:59 23:59 23:59 Intake Total 260 665 850 Output Total 1700 1050 400 Balance -1440 665 -200 -400 Weight 161 lb 157 lb 6.4 oz 157 lb 6 oz 156 lb NECK: Supple, no JVD, carotids 2+, no bruits heard. HEART: Distant sounds, S1 and S2 are normal, faint apical systolic murmur I/, no gallops. LUNGS: Fine creps at the right base. CHEST: Healing surgical wound. ABDOMEN: Soft, nontender, no hepatomegaly, no palpable masses felt. EXTREMITIES: No calf tenderness, no pedal edema. SKIN: Macular rash involving the back, arms and legs. CBC, BMP 05/20/17 05:00 05/20/17 05:00 1. CHF, resolving. 2. CAD,S/P CABG. 3. Severe LV systolic dysfunction. 4. Hypertension. 5. COPD. 6. OSAS. 7. Severe mitral regurgitation. 8. Tricuspid regurgitation. 9. Skin rash, etiology to be determined: a). May be related to medications. b). Xerodermia. 10. Anemia, post op. RECOMMENDATIONS: 1. Evaluation of rash. 2. Close monitoring of electrolytes. 3. Increase ambulation. 4. Dermatological evaluation. 5. Discharge when medically stable.
[2017-05-20] MEDS ORDERED: diazePAM 5 MG TABLET PO ONE (16:15)
[2017-05-20] MEDS ORDERED: FUROSEMIDE 40 MG TABLET (FP) PO ONE (17:25)
--- NOTE | 2017-05-20 17:25 | PN ---
Progress Note, Physician Chief Complaint: pt c/o recumbent orthopnea noturnal. Also hyperventilating at night only. - Current Medication List Current Medications: Active Medications Acetaminophen (Tylenol -) 650 mg PO Q4H PRN PRN Reason: FEVER OR PAIN Acetaminophen (Tylenol -) 650 mg PO Q6H PRN PRN Reason: FEVER OR PAIN Albuterol Sulfate (Ventolin 0.083% Nebulizer Soln -) 1 amp NEB Q4H PRN PRN Reason: SHORT OF BREATH/WHEEZING Last Admin: 05/20/17 06:40 Dose: 1 amp Albuterol Sulfate (Ventolin Hfa Inhaler -) 2 puff IH Q4H PRN PRN Reason: SHORT OF BREATH/WHEEZING Amlodipine Besylate (Norvasc -) 5 mg PO DAILY [facility] Last Admin: 05/20/17 10:35 Dose: 5 mg Aspirin (Asa -) 81 mg PO DAILY [facility] Last Admin: 05/20/17 10:36 Dose: 81 mg Budesonide/Formoterol Fumarate (Symbicort 160/4.5mcg -) 2 puff IH BID [facility] Last Admin: 05/20/17 10:45 Dose: 2 puff Doxazosin Mesylate (Cardura -) 2 mg PO DAILY [facility] Last Admin: 05/20/17 10:37 Dose: 2 mg Furosemide (Lasix -) 40 mg PO BID@0600,1400 [facility] Last Admin: 05/20/17 14:36 Dose: 40 mg Hydrocortisone (Hytone 2.5% Lotion -) 1 applic TP BID PRN PRN Reason: ANXIETY Losartan Potassium (Cozaar -) 25 mg PO DAILY [facility] Last Admin: 05/20/17 10:35 Dose: 25 mg Metoprolol Tartrate (Lopressor -) 25 mg PO BID [facility] Last Admin: 05/20/17 10:35 Dose: 25 mg Potassium Chloride (K-Dur -) 10 meq PO DAILY [facility] Last Admin: 05/20/17 10:35 Dose: 10 meq Sertraline HCl (Zoloft -) 50 mg PO DAILY [facility] Last Admin: 05/20/17 10:35 Dose: 50 mg Spironolactone (Aldactone -) 25 mg PO DAILY [facility] Last Admin: 05/20/17 10:36 Dose: 25 mg Warfarin Sodium (Coumadin -) 2 mg PO DAILY@1800 [facility] Last Admin: 05/19/17 17:14 Dose: 2 mg Zolpidem Tartrate (Ambien -) 5 mg PO HS PRN PRN Reason: INSOMNIA Last Admin: 05/19/17 20:06 Dose: 5 mg - Objective Vital Signs: Vital Signs Temperature 98 F 05/20/17 10:30 Pulse Rate 98 H 05/20/17 10:30 Respiratory Rate 18 05/20/17 10:30 Blood Pressure 128/88 05/20/17 10:30 O2 Sat by Pulse Oximetry (%) 95 05/20/17 09:00 Constitutional: Yes: Anxious Eyes: Yes: WNL HENT: Yes: WNL Neck: Yes: WNL Cardiovascular: Yes: Pulse Irregular Respiratory: Yes: Other (llb fine crackles) Gastrointestinal: Yes: WNL ...Rectal Exam: Yes: Deferred Genitourinary: Yes: WNL Breast(s): Yes: WNL Musculoskeletal: Yes: WNL Extremities: Yes: WNL Edema: Yes Edema: LLE: 1+, RLE: 1+ Peripheral Pulses WNL: Yes Wound/Incision: Yes: Other (small maculopapular rash on back.) Labs: CBC, BMP 05/20/17 05:00 05/20/17 05:00 INR, PTT INR 3.42 (0.82-1.09) H 05/20/17 05:00 Problem List - Problems (1) Rash of back Code(s): R21 - RASH AND OTHER NONSPECIFIC SKIN ERUPTION (2) Anxiety Code(s): F41.9 - ANXIETY DISORDER, UNSPECIFIED (3) Anxiety Code(s): F41.9 - ANXIETY DISORDER, UNSPECIFIED Assessment/Plan pt denies sob at [facility] ov[facility] ambulating without sob on oxygen vss no temp po lasix no oxygen let pt walk see if sob back ? d/c in am with oxygen home or not k replaced plan: extra dose 40mg lasix tn continue hydrocortisone to back. hold coumadin tn only. check INR in am start pt on zoloft 50mg. questionable may hold K+ if hyperkalemic continues due to aldoctone watch pt tonight to see if anxiety vs CHF is causing hyperventilation. questionable discharge in am Dont thinkl needs o2 at home. valium 5 mg given seem to calm pt down
[2017-05-20] MEDS: ZOLPIDEM TARTRATE 5 MG TABLET PO PRN (22:21)
[2017-05-21] MEDS: FUROSEMIDE 40 MG TABLET (FP) PO SCH ×2 (06:50→14:24)
[2017-05-21 07:51] LABS: INR 3.47 (0.82-1.09); PROTHROMBIN TIME (PATIENT) 39.2 SEC (9.98-11.88)
[2017-05-21 09:06] LABS: ANION GAP 11 (8-16); CALCIUM 7.8 mg/dL (8.5-10.1); CO2 27 mmol/L (21-32); CREATININE 1.1 mg/dL (0.7-1.3); GLUCOSE,RANDOM 90 mg/dL (74-106)
[2017-05-21 09:13] VITALS: BP 121/85; TEMP 98.3
[2017-05-21] MEDS ORDERED: PT OWN MED DRAWER 7, Y5N ONE (09:28)
[2017-05-21] MEDS: LOSARTAN POTASSIUM 25 MG TABLET PO SCH (09:32)
[2017-05-21] MEDS: SPIRONOLACTONE 25 MG TABLET (FP) PO SCH (09:32)
[2017-05-21] MEDS: SERTRALINE HCL 50 MG TABLET (FP) PO SCH (09:32)
[2017-05-21] MEDS: ASPIRIN 81 MG CHEWABLE TABLETS PO SCH (09:32)
[2017-05-21] MEDS: amLODIPine BESYLATE 5 MG TABLET (FP) PO SCH (09:32)
[2017-05-21] MEDS: POTASSIUM CHLORIDE TABS 10 MEQ TABLET.ER (FP) PO SCH (09:32)
[2017-05-21] MEDS: METOPROLOL TARTRATE 25 MG TABLET (FP) PO SCH (09:32)
[2017-05-21] MEDS: BUDESONIDE/FORMETEROL FUMARATE 160/4.5 mcg INHALER IH SCH (09:33)
[2017-05-21] MEDS: DOXAZOSIN MESYLATE 2 MG TABLET (FP) PO SCH (09:33)
[2017-05-21 12:07] VITALS: PULSE 101
--- NOTE | 2017-05-21 12:48 | DS ---
Physical Examination Vital Signs: Vital Signs Temperature 98.3 F 05/21/17 09:00 Pulse Rate 101 H 05/21/17 12:06 Respiratory Rate 20 05/21/17 09:00 Blood Pressure 121/85 05/21/17 09:00 O2 Sat by Pulse Oximetry (%) 97 05/21/17 12:06 Constitutional: Yes: Well Nourished Eyes: Yes: WNL HENT: Yes: WNL Neck: Yes: WNL Cardiovascular: Yes: WNL Respiratory: Yes: Other (no crackles now) Gastrointestinal: Yes: WNL ...Rectal Exam: Yes: Deferred Renal/: Yes: WNL Breast(s): Yes: WNL Musculoskeletal: Yes: WNL Extremities: Yes: WNL (less edema legs) Peripheral Pulses WNL: Yes Integumentary: Yes: WNL (less rash back) Neurological: Yes: WNL ...Motor Strength: WNL Psychiatric: Yes: WNL Labs: CBC, BMP 05/20/17 05:00 05/21/17 05:25 Discharge Summary Reason For Visit: ACUTE DYSPNEA, CHF Current Active Problems Acute dyspnea (Acute) Anxiety (Acute) Anxiety (Acute) Rash of back (Acute) S/P CABG (coronary artery bypass graft) (Acute) Condition: Fair - Instructions Diet, Activity, Other Instructions: low na diet warfarin 1 mg hs tong appt w ct tuesday 100 pm lasix 60mg in am 40mg in pm d/c now Referrals: Clifford Maloney MD [Staff Physician] - - Home Medications Comprehensive Discharge Medication List: Ambulatory Orders Albuterol Sulfate [Proair Respiclick] 90 mcg IH DAILY 04/20/17 Doxazosin Mesylate 2 mg PO HS 04/20/17 Furosemide 20 mg PO BID 04/20/17 Alprazolam 5 mg PO PRN MDD 5 05/17/17 Aspirin [Aspirin EC] 81 mg PO DAILY 05/17/17 Atorvastatin Ca [Lipitor] 40 mg PO HS 05/17/17 Carvedilol [Coreg] 6.25 mg PO BID 05/17/17 Docusate Sodium [Colace -] 100 mg PO TID 05/17/17 Guaifenesin [Mucinex -] 600 mg PO BID 05/17/17 Hydrocortisone 1% Cream 1 applic TP PRN 05/17/17 Oxycodone HCl/Acetaminophen [Percocet 5-325 mg Tablet] 2 tab PO PRN MDD 8 tabs 05/17/17 Valsartan 40 mg PO DAILY 05/17/17 Warfarin Na [Coumadin -] 2 mg PO HS 05/17/17
== END 2017-05-21 15:24 | disposition home or self-care (01) | DRG 292 ==
LOC: JER 13:09 → JERBED 15:22 → J5S 18:28 → OBSVTOIN 18:57 → J4W 21:40
PROVIDERS: ADMIT Family Medicine; ATTEND Family Medicine
DX: I11.0 Hypertensive heart disease with heart failure (principal); J98.11 Atelectasis; J44.9 Chronic obstructive pulmonary disease, unspecified; I50.23 Acute on chronic systolic (congestive) heart failure; I48.91 Unspecified atrial fibrillation; I25.5 Ischemic cardiomyopathy; I34.0 Nonrheumatic mitral (valve) insufficiency; I36.1 Nonrheumatic tricuspid (valve) insufficiency; L27.1 Localized skin eruption due to drugs and medicaments taken internally; T50.995A Adverse effect of other drugs, medicaments and biological substances, initial encounter; L85.0 Acquired ichthyosis; Z95.1 Presence of aortocoronary bypass graft; Z85.21 Personal history of malignant neoplasm of larynx; Z86.73 Personal history of transient ischemic attack (TIA), and cerebral infarction without residual deficits; E78.5 Hyperlipidemia, unspecified; Z87.891 Personal history of nicotine dependence; I25.2 Old myocardial infarction; M54.5 Low back pain; D64.9 Anemia, unspecified
CPT/HCPCS: 36415; 71010-TC; 71020-TC; 80048; 80053; 82550; 82553; 83880; 84484; 85025; 85610; 93005; 93010; 93306-TC; 94640; 99283-25; G0378

== ENCOUNTER 2018-03-28 12:11 | Emergency (ER) | payer OTHER ==
[2018-03-28 12:20] VITALS: BP 166/85; PULSE 68; TEMP 98.2; BMI 20.7
--- NOTE | 2018-03-28 13:10 | PDOC ---
Attending Attestation - Resident Resident Name: Soledad Renee - ED Attending Attestation I have performed the following: I have examined & evaluated the patient, The case was reviewed & discussed with the resident, I agree w/resident's findings & plan, Exceptions are as noted - HPI HPI: 03/28/18 13:05 77M with h/o throat CA, CAD s/p CABG, HTN, presenting with 1 month of slurred speech and difficulty swallowing. Pt states that he has difficulty enunciating, and when he eats, he feels that the food gets stuck. He initially saw his oral surgeon and ENT but was told that everything looked OK. He was then referred to the ED today for evaluation of possible CVA. Pt denies any weakness/numbness in his extremities. Denies HOPKINS/N/V. Denies CP/SOB. - Physicial Exam PE: 03/28/18 13:08 GENERAL: Awake, alert, and fully oriented, in no acute distress. HEAD: No signs of trauma EYES: PERRLA, EOMI, sclera anicteric, conjunctiva clear ENT: Auricles normal inspection, hearing grossly normal, nares patent, oropharynx clear without exudates. Moist mucosa NECK: Nontender, no stepoffs, Normal ROM, supple, no lymphadenopathy, JVD, or masses LUNGS: Breath sounds equal, clear to auscultation bilaterally. No wheezes, and no crackles HEART: Regular rate and rhythm, normal S1 and S2, no murmurs, rubs or gallops ABDOMEN: Soft, nontender, normoactive bowel sounds. No guarding, no rebound. No masses EXTREMITIES: Normal range of motion, no edema. No clubbing or cyanosis. No cords, erythema, or tenderness NEUROLOGICAL: +mild dysarthria, Cranial nerves II through XII intact. 5/5 strength and sensation in all extremities, Normal speech, normal gait, normal cerebellar function SKIN: Warm, Dry, normal turgor, no rashes or lesions noted. - Medical Decision Making 03/28/18 13:11 77 M with mild dysarthria x 1 month and possible dysphagia. Pt with no other neuro deficits. Will need CVA r/o given significant CV risk factors and age. However, pt at this time refusing further work up, stating that he does not want to wait for any imaging or tests in the ER. He prefers to have his PMD Dr. Maloney order it for him as outpt. I explained to pt that without completing our work up today, we cannot ensure that he did not have a stroke, and if he did have a stroke, there is a chance he could suffer a more debilitating or life threatening stroke if he leaves here today. The patient is clinically sober, free from distracting injury, appears to have intact insight and judgment and reason and in my opinion has the capacity to make decisions. The patient presented with dysarthria. I have explained that I am concerned that this may represent a stroke; they have verbalized an understanding of my concerns. I have discussed the need for neuro consultation and possible admission to the hospital to get more information about potential causes of the patients dysarthria. I have told the patient that if they leave, they could get much worse, could become critically ill, and could possibly become disabled or . I have discussed these concerns with the patients who is at the bedside and she is unable to convince them to stay for further evaluation. The patient is not willing to await a CT scan or MRI. He is unwilling to stay overnight for monitoring. He is refusing any further care and is leaving against medical advice. I am unable to convince the patient to stay, I have asked them to return as soon as possible to complete their evaluation. I have answered all their questions. Pt states he will call Dr. Maloney as soon as he leaves the ER today. Discharge Disposition - Diagnosis Dysarthria - Discharge Dispostion Disposition: AGAINST MEDICAL ADVICE - Referrals Referrals: Clifford Maloney MD [Primary Care Provider] - - Patient Instructions Printed Discharge Instructions: DI for Dysarthria Additional Instructions: You are leaving against medical advice. Your slurred speech may be a sign of a stroke. If this is the case, there is a chance you may suffer another more debilitating or life threatening stroke. Please return to the hospital as soon as possible to complete your work up. - Post Discharge Activity NIH Stroke Scale - Last Known Well Date/Time & Onset Date Last Known Well: 03/02/18 - Initial Evaluation Level of consciousness: Alert Ask patient the month and their age: Answers both correctly Ask patient to open & close eyes; make fist and let go: Obeys both correctly Best gaze (horizontal eye movement): Normal Visual field testing: No visual field loss Facial paresis (Show teeth/raise eyebrows/close eyes tight): Normal symmetrical movement Motor Function: Left Arm: Normal Motor Function: Right Arm: Normal (extends arm 90 (or 45) degrees for 10 seconds without drift Motor Function: Left Leg: Normal (extends leg 30 degrees for 5 seconds without drift) Motor Function: Right Leg: Normal (extends leg 30 degrees for 5 seconds without drift) Limb Ataxia: No ataxia Sensory(Use pinprick test arms,legs,trunk,face/side to side): Normal Best language (Describe picture, name items, read sentences): No Aphasia Dysarthria (read several words): Mild to moderate slurring of words Extinction and Inattention: No abnormality - Total Score NIH Stroke Scale Score: 1
--- NOTE | 2018-03-28 13:15 | PDOC ---
History of Present Illness - General Chief Complaint: CVA/TIA Stated Complaint: POSS STROKE Time Seen by Provider: 03/28/18 12:31 History Source: Patient, Spouse Exam Limitations: No Limitations - History of Present Illness Initial Comments: 03/28/18 13:29 Pt is a 77yo m with PMH of laryngeal ca s/p radiation 4 years ago, CABG 1y ago, CHF, HTN presenting to ED for further evaluation of slurred speech. Pt said he has been having slurred speech for around 1 month associated with difficulty eating. He thought that it might be a throat problem so he went to his ENT today. ENT did an evaluation and did not find any infection in the oropharynx. ENT advised pt to come to the ED for imaging to see if the patient had a CVA. Pt says he has slurred speech and difficulty chewing and swallowing. He denies changes in vision, changes in hearing, headaches, dizziness, weakness, numbness/ tingling, SOB, chest pain, bowel incontinence, blood in stool or urine, urinary symptoms, n/v/d. He was placed on coumadin after his bypass and then Xarelto but pt was taken off blood thinners "months" ago. He takes aspirin. PCP: Clifford Maloney PMH: see hpi PSH: CABG 1 year ago Meds: lasix, ASA, bp med, cholesterol med Allergies: nkda Past History - Past Medical History Allergies/Adverse Reactions: Allergies Allergy/AdvReac Type Severity Reaction Status Date / Time No Known Allergies Allergy Verified 03/28/18 12:17 Home Medications: Ambulatory Orders Doxazosin Mesylate 2 mg PO HS 04/20/17 Furosemide 20 mg PO BID 04/20/17 Atorvastatin Ca [Lipitor] 40 mg PO HS 05/17/17 Carvedilol [Coreg] 6.25 mg PO BID 05/17/17 Docusate Sodium [Colace -] 100 mg PO TID 05/17/17 Valsartan 40 mg PO DAILY 05/17/17 Warfarin Na [Coumadin -] 2 mg PO HS 05/17/17 Acetaminophen [Tylenol .Regular Strength -] 650 mg PO Q4H PRN tablet 05/21/17 Albuterol Sulfate Inhaler - [Ventolin HFA Inhaler -] 2 puff IH Q4H PRN inhaler 05/21/17 Amlodipine Besylate [Norvasc -] 5 mg PO DAILY tablet 05/21/17 Aspirin [ASA -] 81 mg PO DAILY tab.chew 05/21/17 Budesonide/Formeterol Fumarate [SYMBICORT 160/4.5mcg -] 2 puff IH BID #0 inhaler 05/21/17 Doxazosin Mesylate [Cardura -] 2 mg PO DAILY tablet 05/21/17 Hydrocortisone 2.5% Lotion [Hytone 2.5% Lotion -] 1 applic TP BID PRN #0 bottle 05/21/17 Losartan Potassium [Cozaar -] 25 mg PO DAILY tablet 05/21/17 Metoprolol Tartrate [Lopressor -] 25 mg PO BID tablet 05/21/17 Sertraline HCl [Zoloft -] 50 mg PO DAILY tablet 05/21/17 Spironolactone [Aldactone -] 25 mg PO DAILY #0 tablet 05/21/17 Warfarin Na [Coumadin -] 2 mg PO DAILY@1800 tablet 05/21/17 Anemia: No Asthma: No Cancer: Yes (laryngeal carcinoma s/p RT) Cardiac Disorders: Yes (hypertensive cardiovascular dz, cardiomegaly, afib) 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, resolved left sided hemiparesis) COPD: Yes CHF: No DVT: No Disorders: Yes (CRF) HTN: Yes Hypercholesterolemia: Yes - Surgical History Cardiac Surgery: Yes (cabg) Orthopedic Surgery: Yes (shoulder sx) - Suicide/Smoking/Psychosocial Hx Smoking History: Former smoker Have you smoked in the past 12 months: No If you are a former smoker, when did you quit?: 3 YRS AGO Information on smoking cessation initiated: No Hx Alcohol Use: No Drug/Substance Use Hx: No Substance Use Type: None Hx Substance Use Treatment: No Review of Systems - Review of Systems Constitutional: No: Chills, Fever, Weakness HEENTM: Yes: See HPI, Difficulty Swallowing. No: Eye Pain, Recent change in vision, Nose Pain, Nose Congestion, Throat Pain Respiratory: No: Cough, Shortness of Breath, Hemoptysis Cardiac (ROS): No: Chest Pain, Lightheadedness, Palpitations, Syncope ABD/GI: No: Constipated, Diarrhea, Nausea, Rectal Bleeding, Vomiting, Abdominal cramping : No: Burning, Dysuria, Frequency, Hematuria Musculoskeletal: No: Back Pain, Joint Pain, Muscle Pain, Neck Pain Integumentary: No: Rash Neurological: Yes: See HPI. No: Headache, Numbness, Tingling, Tremors *Physical Exam - Vital Signs Last Vital Signs Temp Pulse Resp BP Pulse Ox 98.2 F 68 18 166/85 97 03/28/18 12:17 03/28/18 12:17 03/28/18 12:17 03/28/18 12:17 03/28/18 12:17 - Physical Exam Comments: 03/30/18 23:57 Pt sitting in bed comfortably with at bedside General Appearance: Yes: Nourished, Appropriately Dressed. No: Apparent Distress HEENT: positive: EOMI, MARII, TMs Normal, Pharynx Normal, Hearing Grossly Normal , Other (slight slurred speech). negative: Pale Conjunctivae, Scleral Icterus ( R), Scleral Icterus (L), Muffled/Hoarse voice, Pharyngeal Erythema, Nasal Congestion, Sinus Tenderness, TM Erythema Neck: positive: Trachea midline, Supple. negative: Carotid bruit, Lymphadenopathy (R), Lymphadenopathy (L) Respiratory/Chest: positive: Lungs Clear, Normal Breath Sounds. negative: Crackles, Rales, Rhonchi, Stridor, Wheezing Cardiovascular: positive: Regular Rhythm, Regular Rate, S1, S2. negative: Edema , JVD, Murmur Vascular Pulses: Carotid (R): 2+, Carotid (L): 2+, Dorsalis-Pedis (R): 2+, Doralis-Pedis (L): 2+ Gastrointestinal/Abdominal: positive: Normal Bowel Sounds, Soft. 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 negative: Facial Droop, Numbness, Sensory Deficit Deep Tendon Reflexes: Ankle (L): 2+, Ankle (R): 2+, Knee (L): 2+, Knee (R): 2+, Bicep (L): 2+, Bicep (R): 2+, Tricep (L): 2+, Tricep (R): 2+ Medical Decision Making - Medical Decision Making 03/28/18 13:18 77yo m with PMH of CABG, HTN, CHF, CVA presenting to ED from ENT clinic for evaluation of possible stroke due to slurred speech x1mo Vitals: wnl, PE: slurred speech, slight tongue deviation to L side otherwise no other neurological deficits and benign exam. DDx: CVA, nerve injury, I was going to order CT head, CBC, CMP, PT/INR and monitor vitals. Pt asked how long the process would take and I told the patient it would take a couple of hours. Pt then stated that he did not want to stay that long and that he should have went to his PCP for a rx for imaging and had it done that way. He expressed desire to leave. I told the patient of possible risks of leaving and not obtaining further testing. Pt understood but did not want to stay. Dr. García went to talk to the patient as well. Discussion at the bedside with patient and family. Pt has capacity to make medical decisions. Discussed indications for treatment and admission, management plan, risks and benefits. There is no evidence of psychosis, altered mental status or intoxication. Pt understands the nature of condition and treatment plan, including potential risks but not limited to: cardiac arrest, persisting neurological deficits, myocardial infarction, stroke, respiratory failure, coma, severe disability and . Pt was refusing testing in ED, but agreed to close follow up with primary care doctor with reevaluation. Return precautions advised, call [phone] immediately if severe life threatening symptoms or concerns.. Pt has verbalized understanding of information provided, questions answered. Pt signed AMA form and stated that he will follow up with his PCP. *DC/Admit/Observation/Transfer Diagnosis at time of Disposition: Slurred speech, Dysarthria - Discharge Dispostion Disposition: AGAINST MEDICAL ADVICE Condition at time of disposition: Stable Decision to Admit order: No - Referrals Referrals: Clifford Maloney MD [Primary Care Provider] - - Patient Instructions Printed Discharge Instructions: DI for Dysarthria Additional Instructions: You are leaving against medical advice. Your slurred speech may be a sign of a stroke. If this is the case, there is a chance you may suffer another more debilitating or life threatening stroke. Please return to the hospital as soon as possible to complete your work up. - Post Discharge Activity
--- NOTE | 2018-03-31 09:33 | EKG ---
Test Reason : Blood Pressure : / mmHG Vent. Rate : 058 BPM Atrial Rate : 058 BPM P-R Int : 304 ms QRS Dur : 104 ms QT Int : 456 ms P-R-T Axes : -01 -29 121 degrees QTc Int : 447 ms SINUS BRADYCARDIA WITH 1ST DEGREE A-V BLOCK INFERIOR INFARCT , AGE UNDETERMINED T WAVE ABNORMALITY, CONSIDER LATERAL ISCHEMIA ABNORMAL ECG WHEN COMPARED WITH ECG OF 16-MAY-2017 13:18, SIGNIFICANT CHANGES HAVE OCCURRED Confirmed by TRACIE SIDHU MD ([id number]) on 03/31/2018 9:32:41 AM Referred By: Confirmed By:TRACIE SIDHU MD
== END 2018-03-28 13:25 | disposition left against medical advice (07) ==
LOC: JER 12:11
DX: R47.1 Dysarthria and anarthria (principal); I25.10 Atherosclerotic heart disease of native coronary artery without angina pectoris; I13.0 Hypertensive heart and chronic kidney disease with heart failure and stage 1 through stage 4 chronic kidney disease, or unspecified chronic kidney disease; N18.9 Chronic kidney disease, unspecified; I50.9 Heart failure, unspecified; Z95.1 Presence of aortocoronary bypass graft; I48.91 Unspecified atrial fibrillation; Z79.01 Long term (current) use of anticoagulants; E78.00 Pure hypercholesterolemia, unspecified
CPT/HCPCS: 93005; 93010; 99282-25

== ENCOUNTER 2019-01-05 15:57 | Inpatient (IN) | payer OTHER ==
--- NOTE | 2019-01-05 16:13 | PDOC ---
Rapid Medical Evaluation Time Seen by Provider: 01/05/19 16:08 Medical Evaluation: Allergies Allergy/AdvReac Type Severity Reaction Status Date / Time No Known Allergies Allergy Verified 03/28/18 12:17 01/05/19 16:08 I have performed a brief in-person evaluation of this patient. The patient presents with a chief complaint of: intermittent SOB Pertinent physical exam findings: b/l pedal edema R>L. I have ordered the following: labs, Urine, cxr, sono The patient will proceed to the ED for further evaluation. Discharge Disposition - Diagnosis SOB (shortness of breath) - Referrals - Patient Instructions - Post Discharge Activity
--- NOTE | 2019-01-05 16:45 | PDOC ---
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 Patient said he has been feeling SOB for about a week, but was unable to sleep last night, prompting him to come in. His SCC was initially diagnosed by MRI on 08/12/2018, and was measured to be 4.2X4.2X2.8cm. He is currently getting chemo and radiation. He was recently diagnosed with a UTI and is currently on abx, with his last day of treatment tomorrow. He has orthopnea at baseline and normally uses 1 pillow. He was encouraged to use two pillows a week ago at [facility] when his SOB began and he did so , however this has not helped. His SOB has not been positional. Endorses SOB and difficulty talking and swallowing. Denies CP, fevers/chills, constipation/diarrhea. 01/05/19 16:39 Past History - Past Medical History Allergies/Adverse Reactions: Allergies Allergy/AdvReac Type Severity Reaction Status Date / Time No Known Allergies Allergy Verified 01/05/19 16:13 Home Medications: Ambulatory Orders Furosemide 40 mg PO BID 04/20/17 Atorvastatin Ca [Lipitor] 40 mg PO HS 05/17/17 Aspirin [ASA -] 81 mg PO DAILY tab.chew 05/21/17 Sertraline HCl [Zoloft -] 50 mg PO DAILY tablet 05/21/17 Levothyroxine [Synthroid -] 25 mcg PO DAILY 01/05/19 Metoprolol Tartrate [Lopressor -] 50 mg PO BID 01/05/19 Anemia: No Asthma: No Cancer: Yes (laryngeal carcinoma s/p RT) Cardiac Disorders: Yes (hypertensive cardiovascular dz, cardiomegaly, afib) 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, resolved left sided hemiparesis) COPD: Yes CHF: No DVT: No Disorders: Yes (CRF) HTN: Yes Hypercholesterolemia: Yes - Surgical History Cardiac Surgery: Yes (cabg) Orthopedic Surgery: Yes (shoulder sx) - Suicide/Smoking/Psychosocial Hx Smoking History: Former smoker Have you smoked in the past 12 months: No If you are a former smoker, when did you quit?: 3 YEARS AGO Information on smoking cessation initiated: No Hx Alcohol Use: No Drug/Substance Use Hx: No Substance Use Type: None Hx Substance Use Treatment: No Review of Systems - Review of Systems Able to Perform ROS?: Yes (limited by dysarthria) Constitutional: No: Chills, Fever, Weakness HEENTM: Yes: Difficulty Swallowing. No: Eye Pain, Blurred Vision, Recent change in vision, Double Vision, Nose Pain, Tinnitus, Hearing Loss Respiratory: Yes: Cough (associated with swallowing), Orthopnea, Shortness of Breath Cardiac (ROS): No: Chest Pain, Edema, Lightheadedness, Syncope ABD/GI: Yes: Difficulty Swallowing. No: Abdominal Distended, Constipated, Diarrhea, Vomiting *Physical Exam - Vital Signs Last Vital Signs Temp Pulse Resp BP Pulse Ox 97.7 F 88 16 138/72 91 L 01/05/19 16:09 01/05/19 16:09 01/05/19 16:09 01/05/19 16:09 01/05/19 16:09 - Physical Exam Comments: Significant dysarthria 01/05/19 16:48 General Appearance: Yes: Nourished, Appropriately Dressed, Cachetic. No: Apparent Distress HEENT: positive: EOMI, MARII, Normal ENT Inspection, Normal Voice, Hearing Grossly Normal. negative: Excessive drooling Neck: positive: Trachea midline, Rigid, Other (enlarged larynx). negative: Tender Respiratory/Chest: positive: Normal Breath Sounds, Crackles. negative: Chest Tender, Lungs Clear, Respiratory Distress, Accessory Muscle Use Cardiovascular: positive: Regular Rhythm, Regular Rate. negative: Murmur, Irregularly Irregular Gastrointestinal/Abdominal: positive: Normal Bowel Sounds, Soft. negative: Tender Musculoskeletal: positive: Normal Inspection. 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 negative: Sensory Deficit ED Treatment Course - LABORATORY CBC & Chemistry Diagram: 01/05/19 17:26 01/05/19 17:26 Medical Decision Making - Medical Decision Making Patient presenting with SOB in context of current cancer treatment and decreased LVEF, as well as calf swelling on exam. Concern for ACS vs PNA vs PE vs CHF exacerbation. Will get CBC CMP trops EKG CXR CTA pending creatinine. 01/05/19 16:50 Labs reviewed. Na 150, troponin 0.07, BNP around 20,000, Creatinine 1.4, WBC wnl 01/05/19 18:35 CXR and BNP with normal WBC suggests CHF exacerbation 01/05/19 19:10 *DC/Admit/Observation/Transfer Diagnosis at time of Disposition: SOB (shortness of breath), CHF exacerbation - Discharge Dispostion Condition at time of disposition: Improved Decision to Admit order: Yes - Referrals Referrals: Clifford Maloney MD [Primary Care Provider] - - Patient Instructions - Post Discharge Activity
--- NOTE | 2019-01-05 17:28 | PDOC ---
Documentation entered by Carito Meza SCRIBE, acting as scribe for Janice Roach MD. Janice Roach MD: This documentation has been prepared by the Derrick gordillo Mackenzie, SCRIBE, under my direction and personally reviewed by me in its entirety. I confirm that the documentation accurately reflects all work , treatment, procedures, and medical decision making performed by me. 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 Patient states having shortness of breath for the past week however last night it got so bad that he could not breathe. The patient denies chest pain, headache and dizziness. Denies fever, chills, nausea, vomiting, diarrhea and constipation. Denies dysuria, frequency, urgency and hematuria. Allergies: NKDA Past surgical history: As per resident note Social history: None reported PCP: Dr. Andre Maloney 01/05/19 17:02 - Physicial Exam PE: 01/05/19 17:19 Agree with resident's exam. Patient is alert and oriented and in no acute distress. CV: RRR no m/r/g. pulm: rhonchi on the R side abdomen: soft, non distended, non tender, without guarding or rebound. ext: no edema. - Medical Decision Making 01/05/19 17:22 Pt presents to the ED complaining of shortness of breath for the last week, worsening today. Currently feels improved, but is hypoxic in the ED to 91%. Differential includes CHF, ACS, PE, PNA. Will check labs and EKG, CXR and likely CT PE. Will admit to medicine for continued management.
[2019-01-05 17:58] LABS: BASO % 0.6 % (0-2.0); EOS % 1.8 % (0-4.5); HEMATOCRIT 31.7 % (35.4-49); HEMOGLOBIN 10.3 GM/dL (11.7-16.9); LYMPH % 5.2 % (8-40); MCH 31.2 pg (25.7-33.7); MCHC 32.4 g/dl (32.0-35.9); MEAN CELL VOLUME 96.2 fl (80-96); MEAN PLT VOLUME 9.2 fl (7.5-11.1); MONO % 5.3 % (3.8-10.2); NEUT % 87.1 % (42.8-82.8); PLATELET COUNT 185 K/MM3 (134-434); RBC 3.29 M/mm3 (4.00-5.60); RDW 14.7 % (11.9-15.9); WHITE BLOOD COUNT 4.9 K/mm3 (4.0-10.0)
[2019-01-05 18:12] LABS: INR 1.18 (0.83-1.09); PROTHROMBIN TIME (PATIENT) 13.9 SEC (9.7-13.0)
[2019-01-05 18:31] LABS: ALBUMIN 2.4 g/dl (3.4-5.0); BILIRUBIN,TOTAL 0.6 mg/dL (0.2-1); BLOOD UREA NITROGEN 41.7 mg/dL (7-18); CALCIUM 8.8 mg/dL (8.5-10.1); CREATININE 1.4 mg/dL (0.55-1.3); MAGNESIUM 2.6 mg/dL (1.8-2.4); N-TERMINAL BNP 24996.9 pg/ml (5-450); POTASSIUM 4.1 mmol/L (3.5-5.1); TOT PROT 6.1 g/dl (6.4-8.2)
[2019-01-05] MEDS ORDERED: FUROSEMIDE 40 MG/4 ML INJECTABLE VIAL IVPUSH ONE (19:33)
[2019-01-05] MEDS ORDERED: FUROSEMIDE 40 MG/4 ML INJECTABLE VIAL ONE (19:49)
[2019-01-06] MEDS ORDERED: methylPREDNISolone NA SUCC 1000 MG/8 ML VIAL IVPB ONE (00:17)
[2019-01-06] MEDS ORDERED: ALBUTEROL SO4 8 GM HFA INHALER IH PRN (00:17)
[2019-01-06] MEDS ORDERED: ASPIRIN 81 MG CHEWABLE TABLETS PO ONE (00:17)
[2019-01-06] MEDS ORDERED: IPRATROPIUM BR 0.02% 0.5 MG/2.5 ML VIAL.NEB. NEB PRN (00:17)
[2019-01-06] MEDS ORDERED: methylPREDNISolone NA SUCC 40 MG/1 ML VIAL ONE ×3 (00:57→14:38)
[2019-01-06] MEDS ORDERED: FUROSEMIDE 40 MG/4 ML INJECTABLE VIAL ONE ×2 (05:45→14:38)
[2019-01-06] MEDS: FUROSEMIDE 40 MG/4 ML INJECTABLE VIAL IVPUSH SCH ×2 (06:01→14:51)
[2019-01-06] MEDS ORDERED: ASPIRIN COATED 81 MG TABLET.EC ONE (09:01)
[2019-01-06] MEDS: methylPREDNISolone NA SUCC 1000 MG/8 ML VIAL IVPB SCH ×4 (09:24→22:18)
[2019-01-06] MEDS: ASPIRIN COATED 81 MG TABLET.EC PO SCH (09:24)
--- NOTE | 2019-01-06 09:30 | EKG ---
Test Reason : Blood Pressure : / mmHG Vent. Rate : 089 BPM Atrial Rate : 089 BPM P-R Int : 288 ms QRS Dur : 104 ms QT Int : 382 ms P-R-T Axes : 043 -17 058 degrees QTc Int : 464 ms SINUS RHYTHM WITH 1ST DEGREE A-V BLOCK WITH OCCASIONAL PREMATURE VENTRICULAR COMPLEXES AND PREMATURE ATRIAL COMPLEXES NONSPECIFIC T WAVE ABNORMALITY PROLONGED QT ABNORMAL ECG WHEN COMPARED WITH ECG OF 28-MAR-2018 12:17, PREMATURE VENTRICULAR COMPLEXES ARE NOW PRESENT PREMATURE ATRIAL COMPLEXES ARE NOW PRESENT VENT. RATE HAS INCREASED BY 31 BPM NONSPECIFIC T WAVE ABNORMALITY NOW EVIDENT IN INFERIOR LEADS Confirmed by SAVANAH DACOSTA MD ([id number]) on 01/06/2019 9:30:14 AM Referred By: Confirmed By:SAVANAH DACOSTA MD
[2019-01-06] MEDS ORDERED: PIPERACILLIN/TAZOB 3.375 GM 3.375 GM in DEXTROSE 5%-WATER - 50 ML IVPB SCH (10:00)
[2019-01-06] MEDS ORDERED: ZOLPIDEM TARTRATE 5 MG TABLET PO PRN (11:24)
[2019-01-06 11:47] LABS: BASO % 0.3 % (0-2.0); HEMATOCRIT 30.9 % (35.4-49); HEMOGLOBIN 10.2 GM/dL (11.7-16.9); LYMPH % 4.7 % (8-40); MCH 31.3 pg (25.7-33.7); MCHC 32.9 g/dl (32.0-35.9); MEAN CELL VOLUME 95.2 fl (80-96); MEAN PLT VOLUME 8.6 fl (7.5-11.1); MONO % 3.4 % (3.8-10.2); NEUT % 91.6 % (42.8-82.8); RBC 3.25 M/mm3 (4.00-5.60); RDW 14.5 % (11.9-15.9)
[2019-01-06 11:57] LABS: PLATELET COUNT 178 K/MM3 (134-434)
[2019-01-06 12:12] LABS: ALBUMIN 2.5 g/dl (3.4-5.0); BILIRUBIN,TOTAL 0.6 mg/dL (0.2-1); BLOOD UREA NITROGEN 39.9 mg/dL (7-18); CREATININE 1.4 mg/dL (0.55-1.3); POTASSIUM 3.9 mmol/L (3.5-5.1); TOT PROT 6.2 g/dl (6.4-8.2)
--- NOTE | 2019-01-06 12:40 | HP ---
Admitting History and Physical - Admission Chief Complaint: sob coughfing 3 days History of Present Illness: pt receving chomo r/t tx for base tunge cancer ? asp food? History Source: Patient, Family Member Limitations to Obtaining History: No Limitations - Past Medical History Cardiovascular: Yes: AFIB, CHF, HTN, CO, Other (low ejecc fx less 3o) Pulmonary: Yes: COPD, Pneumonia Musculoskeletal: Yes: Chronic low back pain ENT: Yes: Other (h/o laryngeal ca) - Past Surgical History Past Surgical History: Yes: Bypass (x 3) - Smoking History Smoking history: Former smoker Have you smoked in the past 12 months: No If you are a former smoker, when did you quit?: 3 YEARS AGO - Alcohol/Substance Use Hx Alcohol Use: No History of Substance Use: reports: None - Social History History of Recent Travel: No Home Medications - Allergies Allergies/Adverse Reactions: Allergies Allergy/AdvReac Type Severity Reaction Status Date / Time No Known Allergies Allergy Verified 01/05/19 16:13 - Home Medications Home Medications: Ambulatory Orders Furosemide 40 mg PO BID 04/20/17 Atorvastatin Ca [Lipitor] 40 mg PO HS 05/17/17 Aspirin [ASA -] 81 mg PO DAILY tab.chew 05/21/17 Sertraline HCl [Zoloft -] 50 mg PO DAILY tablet 05/21/17 Levothyroxine [Synthroid -] 25 mcg PO DAILY 01/05/19 Metoprolol Tartrate [Lopressor -] 50 mg PO BID 01/05/19 Family Disease History - Family Disease History Family History: Unremarkable Review of Systems - Review of Systems Respiratory: reports: Cough, SOB on Exertion Physical Examination Vital Signs: Vital Signs Temperature 97.0 F L 01/06/19 06:01 Pulse Rate 89 01/06/19 09:23 Respiratory Rate 19 01/06/19 09:23 Blood Pressure 150/97 01/06/19 09:23 O2 Sat by Pulse Oximetry (%) 99 01/06/19 09:23 Constitutional: Yes: Well Nourished Eyes: Yes: WNL HENT: Yes: WNL Neck: Yes: Decreased ROM Cardiovascular: Yes: Pulse Irregular Respiratory: Yes: Poor Air Entry, Wheezes Gastrointestinal: Yes: WNL ...Rectal Exam: Yes: Deferred Renal/: Yes: WNL Breast(s): Yes: WNL Musculoskeletal: Yes: WNL Extremities: Yes: WNL Edema: No Peripheral Pulses WNL: Yes Integumentary: Yes: WNL Neurological: Yes: WNL ...Motor Strength: WNL Psychiatric: Yes: WNL Labs: CBC, BMP 01/06/19 11:32 01/06/19 11:32 Assessment/Plan cont curent tx pulm id card pnd to see pt speech swallowing eval ppi given dx asp pneumonia copd ? exacerbation
[2019-01-06 13:39] LABS: ANISOCYTOSIS 0; MACROCYTOSIS 1+; PLATELET ESTIMATE NORMAL
--- NOTE | 2019-01-06 14:55 | CON.PULM ---
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 Patient said he has been feeling SOB for about a week, but was unable to sleep last night, prompting him to come in. His SCC was initially diagnosed by MRI on 08/12/2018, and was measured to be 4.2X4.2X2.8cm. He is currently getting chemo and radiation. He was recently diagnosed with a UTI and is currently on abx, with his last day of treatment tomorrow. He has orthopnea at baseline and normally uses 1 pillow. He was encouraged to use two pillows a week ago at [facility] when his SOB began and he did so, however this has not helped. His SOB has not been positional. Endorses SOB and difficulty talking and swallowing. Denies CP, fevers/chills, constipation/diarrhea. Patients states this all started after patient had choking episode after drinking water. 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 REPRESENTATIVE: No: Alzheimer's Cardio/Vascular: Yes: AFIB, CHF, HTN, SC, Other (low ejecc fx less 3o) Pulmonary: Yes: COPD, Pneumonia Gastrointestinal: No: Ascites Hepatobiliary: No: Cirrhosis Renal/: No: Renal Failure Heme/Onc: Yes: Anemia, Current Chemotherapy, Current Radiation Therapy Musculoskeletal: Yes: Chronic low back pain ENT: Yes: Other (h/o laryngeal ca) - Past Surgical History Past Surgical History: Yes: Bypass (x 3) - Alcohol/Substance Use Hx Alcohol Use: No History of Substance Use: reports: None - Smoking History Smoking history: Former smoker Have you smoked in the past 12 months: No If you are a former smoker, when did you quit?: 3 YEARS AGO - Social History Usual Living Arrangement: With Spouse ADL: Family Assistance History of Recent Travel: No Home Medications - Allergies Allergies/Adverse Reactions: Allergies Allergy/AdvReac Type Severity Reaction Status Date / Time No Known Allergies Allergy Verified 01/05/19 16:13 - Home Medications Home Medications: Ambulatory Orders Furosemide 40 mg PO BID 04/20/17 Atorvastatin Ca [Lipitor] 40 mg PO HS 05/17/17 Aspirin [ASA -] 81 mg PO DAILY tab.chew 05/21/17 Sertraline HCl [Zoloft -] 50 mg PO DAILY tablet 05/21/17 Levothyroxine [Synthroid -] 25 mcg PO DAILY 01/05/19 Metoprolol Tartrate [Lopressor -] 50 mg PO BID 01/05/19 Family Disease History - Family Disease History Family History: Unremarkable Review of Systems - Review of Systems Constitutional: denies: Fever Eyes: denies: Blurred Vision HENT: reports: Other (difficulty swallowing). denies: Ear Discharge, Epistaxis , Nasal Congestion Neck: reports: Other (tongue cancer) Cardiovascular: reports: Shortness of Breath. denies: Chest Pain Respiratory: reports: Cough, Exercise Intolerance, Orthopnea, SOB on Exertion. denies: Hemoptysis, Wheezing Gastrointestinal: denies: Abdominal Pain Genitourinary: denies: Burning Physical Exam Vital Sings: Vital Signs Temperature 97.0 F L 01/06/19 06:01 Pulse Rate 89 01/06/19 09:23 Respiratory Rate 19 01/06/19 09:23 Blood Pressure 150/97 01/06/19 09:23 O2 Sat by Pulse Oximetry (%) 99 01/06/19 09:23 Constitutional: Yes: Calm Eyes: Yes: EOM Intact HENT: Yes: Normocephalic Neck: Yes: Trachea Midline Cardiovascular: Yes: S1, S2 Respiratory: Yes: Diminished Gastrointestinal: Yes: Normal Bowel Sounds Edema: No Neurological: Yes: Alert Psychiatric: Yes: Alert Labs: CBC, BMP 01/06/19 11:32 01/06/19 11:32 rest reviewed Imaging - Results Chest X-ray: Report Reviewed, Image Reviewed EKG: Report Reviewed, Image Reviewed Problem List - Problems (1) Pneumonitis due to food and vomit Code(s): J69.0 - PNEUMONITIS DUE TO INHALATION OF FOOD AND VOMIT (2) SOB (shortness of breath) Code(s): R06.02 - SHORTNESS OF BREATH (3) CHF (congestive heart failure) Code(s): I50.9 - HEART FAILURE, UNSPECIFIED Qualifiers: Qualified Code(s): I50.41 - Acute combined systolic (congestive) and diastolic (congestive) heart failure (4) COPD (chronic obstructive pulmonary disease) Code(s): J44.9 - CHRONIC OBSTRUCTIVE PULMONARY DISEASE, UNSPECIFIED Qualifiers: COPD type: COPD with acute exacerbation Qualified Code(s): J44.1 - Chronic obstructive pulmonary disease with (acute) exacerbation (5) Dysarthria Code(s): R47.1 - DYSARTHRIA AND ANARTHRIA (6) S/P CABG (coronary artery bypass graft) Code(s): Z95.1 - PRESENCE OF AORTOCORONARY BYPASS GRAFT Assessment/Plan 78 white male former smoker with h/o cabg/Lvd/chf/low EF%/h/o laryngeal ca/now undergoing RX for squamous cell ca of tongue with RT/chemo refused PEG insertion at [facility]. Presents with progressive sob which worsened after choking episode while swallowing liquids. Patient does have COPD due to past smoking history. Radiograph reveals bilateral right greater than left infiltrates. Doubt infectious process but would panculture and treat empirically with antibiotics for now. Pattern of infiltrates maybe c/w a pneumonitis from his aspiration episode, however would favor CHF given elevated BNP and reduced Left ventricular function. continue o2 supplementation/short course steroids/bronchodilators/ cautious diuretic trial with monitoring of kidney function and electrolytes. Cardiology consult pending Will follow Consult greatly appreciated Juan Carlos Hutchinson MD
--- NOTE | 2019-01-06 15:06 | PN ---
Progress Note (short form) - Note Progress Note: ID consult dictated suspect aspiration pneumonia in the 78 yo man undergoing chemo and rt to the base of his tongue for SCCa cxray bilateral infiltrates continue zosyn blood cultures/urinary antigens d/w at bedside Problem List - Problems (1) Aspiration pneumonia Code(s): J69.0 - PNEUMONITIS DUE TO INHALATION OF FOOD AND VOMIT (2) Tongue cancer Code(s): C02.9 - MALIGNANT NEOPLASM OF TONGUE, UNSPECIFIED
--- NOTE | 2019-01-06 15:37 | CONS ---
DATE OF CONSULTATION: DATE OF DICTATION: 01/06/2019 Patient was seen and examined in the emergency room. History was obtained from the patient and his , who is present at the bedside. HISTORY: This is a 78-year-old man who is currently undergoing radiation and chemotherapy for a tumor that is under his tongue. He is 4 weeks into the process, and it is happening in [facility]. The tumor was recently diagnosed in July, was found to be 4.2 x 4.2 x 2.8 cm, and he is getting chemo and radiation. He also has a history of laryngeal carcinoma in 2013 that was treated with radiation. There was no surgery at that time. He has had 1 week of worsening shortness of breath and difficulty talking and swallowing. His appetite has been very poor. He has twice seen a swallowing therapist in the city in order to improve his abilities to swallow. He is using magic mouthwash, and they are using a thickener. He denies any fevers or chills but notices that he has shortness of breath. ALLERGIES: He has no known drug allergies. MEDICATIONS: His medications as an outpatient include metoprolol, Synthroid, Zoloft, furosemide, Lipitor, and aspirin. PAST MEDICAL HISTORY: Notable for history of laryngeal cancer in 2013. He has a history of cancer at the base of his tongue, currently under treatment. There is no history of any diabetes, and he has a history of CABG x3 two years ago. Since that time he has lost 70 pounds. PRIMARY MEDICAL DOCTOR: Clifford Maloney MD SOCIAL HISTORY: He is retired. He lives with his . He is originally from [place]. He is a former smoker. He quit in 2013 when he got the laryngeal cancer. He has a history of COPD as well hypertension and coronary artery disease. FAMILY HISTORY: Unremarkable. REVIEW OF SYSTEMS: Notable for cough and shortness of breath. He was noted to be hypoxic in the emergency room. PHYSICAL EXAMINATION: General: He is awake and alert. His speech is poor secondary to the tongue cancer. Vital Signs: He has no fever. Temperature is 97. Pulse is 89, blood pressure 150/97. Respiratory rate is 19, saturating 99% on 2 L. HEENT: He is normocephalic. His eyes are anicteric. Mouth: He has very poor dentition. His mucous membranes are moist. Neck: Supple. Lungs: Have crackles at the bases. Heart: Regular rate and rhythm. Abdomen: Soft, nontender. Extremities: Without edema. IMAGING: Chest x-ray reveals upper lobe infiltrates bilaterally. His white count is 4000, hemoglobin 10.2. Platelets are 178. INR is 1. BUN and creatinine are 39 and 1.4. LFTs are normal. SUMMARY: This is a 78-year-old man who is experiencing a lot of dysphagia and difficulty with swallowing secondary to chemotherapy and radiation therapy in his mouth, who I suspect has bilateral pneumonia on the basis of aspiration. I would agree piperacillin/tazobactam that has been started. For completeness, would obtain a Legionella urinary antigen as well. Would obtain blood cultures as well. Further recommendations to follow. Bernardino [id number]
[2019-01-06] MEDS: MOMETASONE FUROATE 110 MCG/IH INHALER IH SCH ×2 (16:26→22:04)
[2019-01-06] MEDS: UMECLIDINIUM/VILANTEROL (ANORO) 62.5/25 MCG INHALER IH SCH (16:26)
[2019-01-06] MEDS: PIPERACILLIN/TAZOB 3.375 GM 3.375 GM in DEXTROSE 5%-WATER - 50 ML IVPB SCH ×2 (16:45→17:35)
[2019-01-06] MEDS ORDERED: PIPERACILLIN/TAZOBACTAM 3.375 GM VIAL IVPB ONE ×2 (17:06→20:12)
[2019-01-06] MEDS ORDERED: DEXTROSE 5%-WATER - 50 ML IVPB ONE ×2 (17:06→20:13)
[2019-01-07] MEDS: PIPERACILLIN/TAZOB 3.375 GM 3.375 GM in DEXTROSE 5%-WATER - 50 ML IVPB SCH ×3 (02:23→17:47)
[2019-01-07] MEDS: methylPREDNISolone NA SUCC 40 MG/1 ML VIAL IVPUSH SCH ×4 (03:00→17:47)
[2019-01-07] MEDS: FUROSEMIDE 40 MG/4 ML INJECTABLE VIAL IVPUSH SCH (06:42)
[2019-01-07 08:14] LABS: ALBUMIN 2.4 g/dl (3.4-5.0); BILIRUBIN,TOTAL 0.5 mg/dL (0.2-1); BLOOD UREA NITROGEN 46.3 mg/dL (7-18); CALCIUM 9.1 mg/dL (8.5-10.1); CREATININE 1.3 mg/dL (0.55-1.3); TOT PROT 5.7 g/dl (6.4-8.2)
[2019-01-07 08:16] LABS: BASO % 0.1 % (0-2.0); HEMATOCRIT 29.1 % (35.4-49); HEMOGLOBIN 9.7 GM/dL (11.7-16.9); LYMPH % 2.9 % (8-40); MCH 31.6 pg (25.7-33.7); MCHC 33.3 g/dl (32.0-35.9); MEAN CELL VOLUME 94.9 fl (80-96); MEAN PLT VOLUME 9.1 fl (7.5-11.1); MONO % 2.9 % (3.8-10.2); NEUT % 94.1 % (42.8-82.8); RBC 3.07 M/mm3 (4.00-5.60); RDW 14.9 % (11.9-15.9); WHITE BLOOD COUNT 6.7 K/mm3 (4.0-10.0)
[2019-01-07 08:38] LABS: PLATELET COUNT 176 K/MM3 (134-434)
[2019-01-07 11:40] LABS: ANISOCYTOSIS 1+; MACROCYTOSIS 1+; OVALOCYTE 1+; PLATELET ESTIMATE NORMAL
[2019-01-07] MEDS ORDERED: PIPERACILLIN/TAZOBACTAM 3.375 GM VIAL IVPB ONE ×2 (11:44→17:36)
[2019-01-07] MEDS ORDERED: DEXTROSE 5%-WATER - 50 ML IVPB ONE ×2 (11:45→17:36)
[2019-01-07] MEDS: PANTOPRAZOLE SOD 40 MG SUSPENSION PACKET PO SCH (11:51)
[2019-01-07] MEDS: ASPIRIN COATED 81 MG TABLET.EC PO SCH (11:51)
[2019-01-07] MEDS: SERTRALINE HCL 50 MG TABLET (FP) PO SCH (11:51)
[2019-01-07] MEDS: UMECLIDINIUM/VILANTEROL (ANORO) 62.5/25 MCG INHALER IH SCH (11:54)
--- NOTE | 2019-01-07 11:54 | PN ---
Progress Note (short form) - Note Progress Note: PULMONARY SUBJECTIVE IMPROVEMENT VSS/AFEBRILE ANICTERIC CLEAR BILATERAL S1S2 BS+ NO EDEMA LABS/MEDS/NOTES/IMAGES REVIEWED (1) Pneumonitis due to food and vomit Code(s): J69.0 - PNEUMONITIS DUE TO INHALATION OF FOOD AND VOMIT (2) SOB (shortness of breath) Code(s): R06.02 - SHORTNESS OF BREATH (3) CHF (congestive heart failure) Code(s): I50.9 - HEART FAILURE, UNSPECIFIED Qualifiers: Qualified Code(s): I50.41 - Acute combined systolic (congestive) and diastolic (congestive) heart failure (4) COPD (chronic obstructive pulmonary disease) Code(s): J44.9 - CHRONIC OBSTRUCTIVE PULMONARY DISEASE, UNSPECIFIED Qualifiers: COPD type: COPD with acute exacerbation Qualified Code(s): J44.1 - Chronic obstructive pulmonary disease with (acute) exacerbation (5) Dysarthria Code(s): R47.1 - DYSARTHRIA AND ANARTHRIA (6) S/P CABG (coronary artery bypass graft) Code(s): Z95.1 - PRESENCE OF AORTOCORONARY BYPASS GRAFT CONTINUE CURRENT MEDICAL REGIMEN/ANTIBIOTICS/CAUTIOUS DIURESIS/O2 SUPPLEMENTATION/BRONCHODILATION CHECK CXR TODAY/CONSIDER ECHO CRP ORDERED REMAINS AT HIGH RISK FOR CONTINUED ASPIRATION WITHOUT PEG IN PLACE WILL FOLLOW Problem List - Problems (1) Pneumonitis due to food and vomit Code(s): J69.0 - PNEUMONITIS DUE TO INHALATION OF FOOD AND VOMIT (2) SOB (shortness of breath) Code(s): R06.02 - SHORTNESS OF BREATH (3) CHF (congestive heart failure) Code(s): I50.9 - HEART FAILURE, UNSPECIFIED Qualifiers: Qualified Code(s): I50.41 - Acute combined systolic (congestive) and diastolic (congestive) heart failure (4) COPD (chronic obstructive pulmonary disease) Code(s): J44.9 - CHRONIC OBSTRUCTIVE PULMONARY DISEASE, UNSPECIFIED Qualifiers: COPD type: COPD with acute exacerbation Qualified Code(s): J44.1 - Chronic obstructive pulmonary disease with (acute) exacerbation (5) Dysarthria Code(s): R47.1 - DYSARTHRIA AND ANARTHRIA (6) S/P CABG (coronary artery bypass graft) Code(s): Z95.1 - PRESENCE OF AORTOCORONARY BYPASS GRAFT
[2019-01-07] MEDS ORDERED: DEXTROSE 5%-WATER - 1,000 ML IV SCH (13:00)
[2019-01-07] MEDS: DEXTROSE 5%-WATER - 1,000 ML IV SCH (14:00)
--- NOTE | 2019-01-07 15:27 | EKG ---
Test Reason : Blood Pressure : / mmHG Vent. Rate : 083 BPM Atrial Rate : 083 BPM P-R Int : 304 ms QRS Dur : 104 ms QT Int : 440 ms P-R-T Axes : 081 -21 109 degrees QTc Int : 517 ms SINUS RHYTHM WITH 1ST DEGREE A-V BLOCK WITH FREQUENT and consecutive PREMATURE VENTRICULAR COMPLEXES INFERIOR INFARCT , AGE UNDETERMINED T WAVE ABNORMALITY, CONSIDER ANTEROLATERAL ISCHEMIA PROLONGED QT ABNORMAL ECG WHEN COMPARED WITH ECG OF 05-JAN-2019 18:23, PREMATURE ATRIAL COMPLEXES ARE NO LONGER PRESENT T WAVE INVERSION NOW EVIDENT IN ANTERIOR LEADS QT HAS LENGTHENED PATIENT SITTING UP IN BED DURING EKG DUE TO BREATHING Confirmed by OLESYA NAM, SAVANAH ([id number]) on 01/07/2019 3:27:26 PM Referred By: Mini SILVERIO Confirmed By:SAVANAH DACOSTA MD
--- NOTE | 2019-01-07 17:05 | PN ---
Progress Note, Physician History of Present Illness: pt no bm pulse high comfotable less sob ? do pre post o2 prior to discharge ? few days - Current Medication List Current Medications: Active Medications Albuterol Sulfate (Ventolin Hfa Inhaler -) 2 puff IH Q4H PRN PRN Reason: SHORT OF BREATH/WHEEZING Aspirin (Ecotrin -) 81 mg PO DAILY RAMU Last Admin: 01/07/19 11:51 Dose: 81 mg Piperacillin Sod/Tazobactam (Sod 3.375 gm/ Dextrose) 50 mls @ 100 mls/hr IVPB Q8H-IV RAMU; Protocol Last Admin: 01/07/19 11:49 Dose: 100 mls/hr Dextrose (D5w -) 1,000 mls @ 42 mls/hr IV ASDIR RAMU Last Admin: 01/07/19 14:00 Dose: 42 mls/hr Ipratropium [place] (Atrovent 0.02% Nebulizer -) 1 amp NEB Q6H PRN PRN Reason: DYSPEPSIA Stop: 01/13/19 00:21 Last Admin: 01/06/19 22:37 Dose: 1 amp Methylprednisolone Sodium Succinate (Solu-Medrol -) 20 mg IVPUSH Q8H-IV RAMU Last Admin: 01/07/19 13:19 Dose: 20 mg Metoprolol Succinate (Toprol Xl -) 50 mg PO DAILY RAMU Last Admin: 01/07/19 11:51 Dose: 50 mg Mometasone Furoate (Asmanex 110mcg -) 1 puff IH BID RAMU Last Admin: 01/06/19 22:04 Dose: Not Given Pantoprazole Sodium (Protonix Packets For Oral Suspension -) 40 mg PO DAILY RAMU Last Admin: 01/07/19 11:51 Dose: 40 mg Sertraline HCl (Zoloft -) 50 mg PO DAILY RAMU Last Admin: 01/07/19 11:51 Dose: 50 mg Umeclidinium/Vilanterol (Anoro Ellipta 62.5-25 Mcg Inh) 1 puff IH DAILY RAMU Last Admin: 01/07/19 11:54 Dose: 1 puff Zolpidem Tartrate (Ambien -) 5 mg PO HS PRN PRN Reason: INSOMNIA - Objective Vital Signs: Vital Signs Temperature 96.5 F L 01/07/19 13:00 Pulse Rate 73 01/07/19 13:00 Respiratory Rate 20 01/07/19 13:00 Blood Pressure 133/65 01/07/19 13:00 O2 Sat by Pulse Oximetry (%) 94 L 01/06/19 17:00 Constitutional: Yes: Well Nourished Eyes: Yes: WNL HENT: Yes: WNL Neck: Yes: WNL Cardiovascular: Yes: Regular Rate and Rhythm Respiratory: Yes: WNL, SOB on Exertion Gastrointestinal: Yes: Other (constipated) ...Rectal Exam: Yes: Deferred Genitourinary: Yes: WNL Breast(s): Yes: WNL Musculoskeletal: Yes: WNL Extremities: Yes: WNL Edema: No Peripheral Pulses WNL: Yes Integumentary: Yes: WNL Labs: CBC, BMP 01/07/19 06:50 01/07/19 06:50 INR, PTT INR 1.18 (0.83-1.09) H 01/05/19 17:26 Assessment/Plan miralax po card seen pt and will see again today appretiated held lasix iv 42 cc hr cjk labs in am out of afibb?
[2019-01-07] MEDS: MOMETASONE FUROATE 110 MCG/IH INHALER IH SCH ×2 (17:52→21:18)
[2019-01-07] MEDS: POLYETHYLENE GLYCOL 3350 119 GM BTL PO SCH (17:53)
--- NOTE | 2019-01-07 19:22 | PN ---
Progress Note (short form) - Note Progress Note: 78 year old male admitted with CHF, known case of CAD/s/p CABG, LV systolic dysfunction,hypertension, hypertensive cardiovascular disease, history of paroxysmal atrial flutter, COPD, status post radiation therapy for laryngeal carcinoma. Patient initial symptoms were increasing shortness of breath and pedal edema, he is currently undergoing radiation therapy for carcinoma of the tongue. Patient has been feeling better since he was diuresed and was noted to have hypernatremia and was placed on dextrose in water by PCP. Active Medications Albuterol Sulfate (Ventolin Hfa Inhaler -) 2 puff IH Q4H PRN PRN Reason: SHORT OF BREATH/WHEEZING Albuterol Sulfate (Ventolin 0.083% Nebulizer Soln -) 1 amp NEB Q4H PRN PRN Reason: SHORT OF BREATH/WHEEZING Piperacillin Sod/Tazobactam (Sod 3.375 gm/ Dextrose) 50 mls @ 100 mls/hr IVPB Q8H-IV RAMU; Protocol Last Admin: 01/08/19 17:36 Dose: 100 mls/hr Dextrose (D5w -) 1,000 mls @ 42 mls/hr IV ASDIR RAMU Last Admin: 01/08/19 17:36 Dose: 42 mls/hr Methylprednisolone Sodium Succinate (Solu-Medrol -) 20 mg IVPUSH Q8H-IV RAMU Last Admin: 01/08/19 17:36 Dose: 20 mg Metoprolol Tartrate (Lopressor -) 25 mg PO BID RAMU Last Admin: 01/08/19 11:33 Dose: 25 mg Mometasone Furoate (Asmanex 110mcg -) 1 puff IH BID RAMU Last Admin: 01/08/19 10:29 Dose: Not Given Pantoprazole Sodium (Protonix Packets For Oral Suspension -) 40 mg PO DAILY RAMU Last Admin: 01/08/19 10:30 Dose: 40 mg Polyethylene Glycol (Miralax (For Daily Use) -) 17 gm PO DAILY RAMU Last Admin: 01/08/19 10:29 Dose: Not Given Sertraline HCl (Zoloft -) 50 mg PO DAILY RAMU Last Admin: 01/08/19 10:30 Dose: 50 mg Umeclidinium/Vilanterol (Anoro Ellipta 62.5-25 Mcg Inh) 1 puff IH DAILY RAMU Last Admin: 01/08/19 10:29 Dose: 1 puff Zolpidem Tartrate (Ambien -) 5 mg PO HS PRN PRN Reason: INSOMNIA Last Vital Signs Temp Pulse Resp BP Pulse Ox 97.0 F L 76 20 143/89 94 L 01/08/19 18:00 01/08/19 18:00 01/08/19 18:00 01/08/19 18:00 01/08/19 16:35 Neck: Supple, no jugular venous distention, carotids were 2+, upstrokes were normal, no bruits were heard. Heart: PMI was in the fifth intercostal space, no heaves or thrills, S1 and S2 were normal, grade 1/6 apical systolic murmur. No gallops were heard. Lungs: Clear on auscultation. Abdomen: Soft, nontender, no hepatosplenomegaly or palpable masses were felt. Extremities: No calf tenderness or dependent edema. CBC, BMP 01/08/19 08:18 01/08/19 08:18 Impression: 1. Congestive heart failure [place] heart classification III, resolving. 2. Coronary artery disease, status post CABG. 3. Left ventricular systolic dysfunction of moderate severity. 4. Hypercholesterolemia. 5. COPD. 6. Hypertension, hypertensive cardiovascular disease, currently normotensive. 7. Prerenal azotemia and elevated sodium levelspossibly related to dehydration. 8. Anemia. Recommendations: 1.continue medications as outlined. 2. Check stool guaiacs. 3. Follow-up basic metabolic profile. Ward Swain MD.
[2019-01-08] MEDS ORDERED: DEXTROSE 5%-WATER - 50 ML IVPB ONE ×3 (02:38→17:32)
[2019-01-08] MEDS ORDERED: PIPERACILLIN/TAZOBACTAM 3.375 GM VIAL IVPB ONE ×3 (02:38→17:32)
[2019-01-08] MEDS: methylPREDNISolone NA SUCC 40 MG/1 ML VIAL IVPUSH SCH ×3 (02:43→17:36)
[2019-01-08] MEDS: PIPERACILLIN/TAZOB 3.375 GM 3.375 GM in DEXTROSE 5%-WATER - 50 ML IVPB SCH ×3 (02:45→17:36)
[2019-01-08 08:50] LABS: BASO % 0.1 % (0-2.0); HEMATOCRIT 28.6 % (35.4-49); HEMOGLOBIN 9.5 GM/dL (11.7-16.9); LYMPH % 3.1 % (8-40); MCH 31.6 pg (25.7-33.7); MCHC 33.2 g/dl (32.0-35.9); MEAN CELL VOLUME 95.1 fl (80-96); MEAN PLT VOLUME 8.8 fl (7.5-11.1); MONO % 2.5 % (3.8-10.2); NEUT % 94.3 % (42.8-82.8); PLATELET COUNT 164 K/MM3 (134-434); RBC 3.01 M/mm3 (4.00-5.60); RDW 14.8 % (11.9-15.9); WHITE BLOOD COUNT 7.2 K/mm3 (4.0-10.0)
[2019-01-08 09:44] LABS: BLOOD UREA NITROGEN 48.7 mg/dL (7-18); CALCIUM 8.8 mg/dL (8.5-10.1); CREATININE 1.2 mg/dL (0.55-1.3); POTASSIUM 4.1 mmol/L (3.5-5.1)
[2019-01-08] MEDS ORDERED: POLYETHYLENE GLYCOL 3350 119 GM BTL PO SCH (10:00)
[2019-01-08] MEDS ORDERED: PT OWN MED DRAWER 7, Y5N ONE (10:17)
[2019-01-08] MEDS: UMECLIDINIUM/VILANTEROL (ANORO) 62.5/25 MCG INHALER IH SCH (10:29)
[2019-01-08] MEDS: POLYETHYLENE GLYCOL 3350 119 GM BTL PO SCH (10:29)
[2019-01-08] MEDS: MOMETASONE FUROATE 110 MCG/IH INHALER IH SCH ×2 (10:29→21:22)
[2019-01-08] MEDS ORDERED: ASPIRIN 81 MG CHEWABLE TABLETS PO SCH (10:30)
[2019-01-08] MEDS: ASPIRIN COATED 81 MG TABLET.EC PO SCH (10:30)
[2019-01-08] MEDS: SERTRALINE HCL 50 MG TABLET (FP) PO SCH (10:30)
[2019-01-08] MEDS: PANTOPRAZOLE SOD 40 MG SUSPENSION PACKET PO SCH (10:30)
--- NOTE | 2019-01-08 11:09 | CONSULT ---
Admitting History and Physical - Primary Care Physician PCP: Clifford Maloney - Admission History of Present Illness: 78 gentleman, former smoker, with h/o cabg/Lvd/chf/low EF%/h/o laryngeal ca/now undergoing RX for squamous cell ca of tongue with RT/chemo. His SCC was initially diagnosed by MRI on 08/12/2018, and was measured to be 4.2X4.2X2.8cm. He is currently getting chemo and radiation. Pt refused PEG insertion at [facility]. Presents with progressive sob which worsened after choking episode while swallowing liquids. Patient does have COPD due to past smoking history. Radiograph reveals bilateral right greater than left infiltrates. ID-Suspected aspiration PNA with bilateral infiltrates and coughing on PO intake. Dys puree/honey thick liquid. Pt well know to me from [facility] 07/05/18, at which time pt presented with reduced tongue mobility, with restricted protrusion and elevation, and hardened upon palpation. There was reduced laryngeal elevation, good epiglottic inversion, no aspiration. I recommended ENT consult to r/o structural impairment of tongue, further imaging r/o pathology, blenderized food with glossectomy spoon. Pt now followed at [facility], having chemo/RT. Pt receives swallowing tx weekly, PO intake only Boost at this time, with weight loss , now with bilateral infiltrates. PEG was recommended but refused by family. Pt's resistant to evaluation stating they are followed at [facility], that her needs to be discharged to get Chemo, scheduled for today. I educated pt, and brother on results of MBS in June and worsened function at this time. No tongue protrusion/elevation, vocal wetness, with suspected poor laryngeal function and aspiration at this time. 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 Cardiovascular: Yes: AFIB, CHF, HTN, TN, Other (low ejecc fx less 3o) Pulmonary: Yes: COPD, Pneumonia Gastrointestinal: No: Ascites Hepatobiliary: No: Cirrhosis Renal/: No: Renal Failure Heme/Onc: Yes: Anemia, Current Chemotherapy, Current Radiation Therapy Musculoskeletal: Yes: Chronic low back pain ENT: Yes: Other (h/o laryngeal ca) - Past Surgical History Past Surgical History: Yes: Bypass (x 3) - Smoking History Smoking history: Former smoker Have you smoked in the past 12 months: No If you are a former smoker, when did you quit?: 3 YEARS AGO - Alcohol/Substance Use Hx Alcohol Use: No History of Substance Use: reports: None - Social History ADL: Family Assistance History of Recent Travel: No History - Admission Reason For Visit: ACUTE ON CHRONIC CHF - Diagnostics X-ray: Report Reviewed Modified Barium Swallow: Report Reviewed ( Pt well know to me from [facility] , at which time pt presented with reduced tongue mobility, with restricted protrusion and elevation, and hardened upon palpation. There was reduced laryngeal elevation, good epiglottic inversion, no aspiration. I recommended ENT consult to r/o structural impairment of tongue, further imaging r/o pathology, blenderized food with glossectomy spoon.) - General Mental Status: Alert and Oriented, Awake and Alert, Able to Follow Commands Attention: Intact Ability to Follow Directions: Good Head/Neck Control: Good - Hearing Hearing: Normal Hearing Aide: No With Patient: No Speech Evaluation - Communication Primary Language: MAURITIAN - Speech Production Able to Make Needs Known: Yes: Moderately Impaired Intelligibility: Yes: Moderately Impaired - Speech Characteristics Voice Loudness: Moderately Soft/Quiet Voice Phonatory-based Quality: Yes: Dysphonia, Vocal Wetness Speech Clarity: < 75% Nasal Resonance: Normal Articulation: Yes: Imprecise (Severely limited tongue mobility.) - Language/Auditory Comprehension Follows: Yes: 1 Stage Simple Commands Observation: Able to respond to yes/no queries: Yes, Yes/No Confusion: No, Comprehends Conversational Speech: Yes - Language/Verbal Expression Able to Respond to Simple Queries: Yes: WNL Functional Communication Status: Yes: Mildly Impaired, Moderately Impaired - Swallow Evaluation/Bedside Assessment Current Nutritional Intake: Dysphagia Pureed, Honey Textured Liquids Oral Secretions: Yes: Drooling, Tongue Coated (blacked areas on tongue) Dentition: Yes: Adequate (poor dental health) Facial Symmetry at Rest: Symmetrical Lingual Movement: Reduced Tip Depression, Reduced Tip Elevation, Reduced Lt Lateralization, Reduced Rt Lateralization, Reduced Protrusion, Unable to Perform , Other (NO tongue movement) Laryngeal Elevation: Impaired Laryngeal Movement: Able to Palpate (weak, limited movement. repeated swallowing attempted with vocal wetness, throat clearing, drooling) Timing of Swallow: Delayed Coughing/Throat Clear: Yes Change in Voice: Yes Recommendations - Speech Evaluation, Impression/Plan Impression: Significant deterioration in tongue mobility, and swallowing function compared to MBS performed in June,.Weight loss. High suspicion for aspiration , high risk for dehydration, malnutrition. Family requires a lot of education. Refused PEG in past.Limited insight in risk. They want pt d/c'd to continue chemo, Boost po. - Dysphagia Impressions/Plan Swallowing Skills: Impaired Dysphagia Impressions: Severe Impairment, Ongoing Evaluation, Suspect Aspiration *Silent aspiration: cannot be R/O at bedside Dysphagia Treatment Plan: Other (Reviewed case with PMD/Pulm. Family/pt educated extensively. Pt is a full code. Does pt want intubation?) Recommendations: MBS w Esophagus, Other (Miralax ordered- Can not be thickened.) - Recommendations Diet Consistency: NPO Liquids: NPO
[2019-01-08] MEDS: METOPROLOL TARTRATE 25 MG TABLET (FP) PO SCH (11:33)
--- NOTE | 2019-01-08 11:33 | CONS ---
DATE OF CONSULTATION: DATE OF DICTATION: 01/06/2019 CARDIOLOGY CONSULTATION CONSULTATION REQUESTED BY: Camilo Maloney M.D. CHIEF COMPLAINT: 1. Increasing shortness of breath. 2. Pedal edema. 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 The patient states that for approximately 1 week he has been experiencing increasing dyspnea, accompanied by pedal edema. Prior to admission he was experiencing 2- pillow orthopnea and paroxysmal nocturnal dyspnea. There is no history of chest pain or discomfort, either at rest or with exertion. No history of palpitations, lightheadedness, dizziness, presyncope or syncope reported. The patient is having speech difficulties related to carcinoma of the tongue. The patient also is known to have chronic obstructive pulmonary disease, hypertension, hypertensive cardiovascular disease, history of paroxysmal atrial flutter. Apparently he had a cerebrovascular event. PAST MEDICAL HISTORY: As mentioned in the history of present illness. PAST SURGICAL HISTORY: Status post tonsillectomy. History of radiation therapy for laryngeal carcinoma. 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 SOCIAL HISTORY: Retired. He is . Has 2 sons. One of his sons has a cancerous tumor of the abdomen, type uncertain. The patient started smoking at the age of 16 and had switched over to e- cigarettes approximately 3 years ago. Presently he is not smoking. He used to smoke 20 cigarettes per day and has 2 to 3 glasses of wine. Denies excessive use of caffeine. FAMILY HISTORY: Father at the age of 73 related to pneumonia. Mother at age 74, apparently of natural causes. One of his sisters at the age of 60 of a brain tumor. He has a younger brother who apparently is healthy. ALLERGIES: None reported. CURRENT MEDICATIONS: 1. Solu-Medrol 40 mg IV q.i.d. 2. Asmanex 1 inhalation b.i.d. 3. Piperacillin and tazobactam 3.375 g IV q.8 h. 4. Zoloft 50 mg p.o. daily. 5. Anora 1 inhalation daily. 6. Ambien 5 mg p.o. at bedtime p.r.n. 7. Ventolin HFA inhaler 2 inhalations q.4 h. p.r.n. 8. Metoprolol 50 mg p.o. daily. 9. Atrovent 1 ampule via nebulizer q.6 h. p.r.n. 10. Furosemide 40 mg IV b.i.d. 11. Aspirin 81 mg p.o. daily. 12. Protonix 40 mg p.o. daily. REVIEW OF SYSTEMS: Constitutional: No history of chills, fever or night sweats. The patient feels that there has been weight loss since started on radiation. HEENT: No history of headaches, diplopia or blurred vision. No history of epistaxis. History of dysarthria related to restriction of tongue movement. No history of tinnitus or deafness. Cardiovascular: See history of present illness. Respiratory: See history of present illness. No history of hemoptysis. Gastrointestinal: The patient is generally on a liquid diet. No history of nausea, vomiting, melena or hematemesis. Denies having abdominal pain or discomfort. Endocrine: No history of polyuria or polydipsia. No history of intolerance to cold or warm weather. Musculoskeletal: No history of recent myalgias or arthralgias reported. Neurological: See history of present illness. No history of seizures or syncope. No history of focal weakness. No history of lightheadedness. Genitourinary: History of BPH. No history of urgency, dribbling or dysuria. No history of hematuria. PHYSICAL EXAMINATION: General: A 78-year-old gentleman in no acute distress. Had difficulty in speaking. There was no pallor, cyanosis, clubbing or jaundice. Vital Signs: Weight was not available. Blood pressure 114/46 mmHg, pulse 65 beats per minute and regular, temperature 97.7 degrees Fahrenheit. Respirations were 20 per minute. Oxygen saturation 96% on 2 L of oxygen. Neck: Supple. No jugular venous distention. Hepatojugular reflux was negative. Carotids were 2+. Upstrokes were normal and no bruits were heard. Heart: No heaves or thrills. S1 and S2 were normal. A grade 1/6 to 2/6 holosystolic murmur was heard at the apex that radiated towards the left axilla. No gallops or diastolic murmur was heard. Lungs: Clear on auscultation. Chest: Normal AP diameter. Midline sternotomy scar that was healed. Abdomen: Soft, slightly protuberant. No hepatosplenomegaly or palpable masses were felt. Bowel sounds were present. No bruits were heard. Extremities: No calf tenderness. There is trace bilateral ankle edema. Dorsalis pedis pulses were 1+, tibial pulses were not palpable. Femoral pulses were 2+. LABORATORY DATA: January 06, 2019: CBC: WBC 4000, hemoglobin 10.2 g/dL, platelet count 178,000; differential - neutrophils 91.6%, lymphocytes 4.7%, monocytes 3.4%. Chemistry: Sodium 150, potassium 3.9, chloride 113, CO2 of 31 mmol/L. Troponins were 0.07 on January 05 and January 06. CK was 48 and 36. BNP 24,999.9 pg/ mL. IMAGING: X-ray of the chest, impression: Upper lobe infiltrates with coarse lung findings. ELECTROCARDIOGRAM: Not available. IMPRESSION: 1. Clinical presentation is consistent with congestive heart failure, [place] Heart Association classification IV. 2. Coronary artery disease, status post coronary artery bypass grafting. 3. Left ventricular systolic dysfunction, moderate to severe. 4. History of atrial fibrillation. 5. Hypertension, hypertensive cardiovascular disease. 6. Chronic obstructive pulmonary disease. 7. Pneumonia needs to be excluded. 8. Carcinoma of the tongue, currently undergoing radiation therapy. RECOMMENDATIONS: 1. If the patient continues to have evidence of CHF, he should be transferred to telemetry for further monitoring. 2. Continue medications as outlined. 3. Ideally the patient should be on either an ARB or DIANA inhibitor and have been discontinued while he is undergoing radiation and chemotherapy. 4. Daily weight. 5. EKG. 6. T3, T4 and TSH. PROGNOSIS: Guarded. Thank you for your referral. OUSMANE DAIGLE M.D. [id number] MTDD
--- NOTE | 2019-01-08 11:36 | PN ---
Progress Note, Physician History of Present Illness: feels better less sob ? will do pre post 02 tx less cough - Current Medication List Current Medications: Active Medications Albuterol Sulfate (Ventolin Hfa Inhaler -) 2 puff IH Q4H PRN PRN Reason: SHORT OF BREATH/WHEEZING Aspirin (Asa -) 81 mg PO DAILY [facility] Piperacillin Sod/Tazobactam (Sod 3.375 gm/ Dextrose) 50 mls @ 100 mls/hr IVPB Q8H-IV [facility]U; Protocol Last Admin: 01/08/19 10:29 Dose: 100 mls/hr Dextrose (D5w -) 1,000 mls @ 42 mls/hr IV ASDIR ARMU Last Admin: 01/07/19 14:00 Dose: 42 mls/hr Ipratropium [place] (Atrovent 0.02% Nebulizer -) 1 amp NEB Q6H PRN PRN Reason: DYSPEPSIA Stop: 01/13/19 00:21 Last Admin: 01/06/19 22:37 Dose: 1 amp Methylprednisolone Sodium Succinate (Solu-Medrol -) 20 mg IVPUSH Q8H-IV RAMU Last Admin: 01/08/19 10:28 Dose: 20 mg Metoprolol Tartrate (Lopressor -) 25 mg PO BID [facility] Mometasone Furoate (Asmanex 110mcg -) 1 puff IH BID [facility] Last Admin: 01/08/19 10:29 Dose: Not Given Pantoprazole Sodium (Protonix Packets For Oral Suspension -) 40 mg PO DAILY [facility] Last Admin: 01/08/19 10:30 Dose: 40 mg Polyethylene Glycol (Miralax (For Daily Use) -) 17 gm PO DAILY [facility] Last Admin: 01/08/19 10:29 Dose: Not Given Sertraline HCl (Zoloft -) 50 mg PO DAILY [facility] Last Admin: 01/08/19 10:30 Dose: 50 mg Umeclidinium/Vilanterol (Anoro Ellipta 62.5-25 Mcg Inh) 1 puff IH DAILY [facility] Last Admin: 01/08/19 10:29 Dose: 1 puff Zolpidem Tartrate (Ambien -) 5 mg PO HS PRN PRN Reason: INSOMNIA - Objective Vital Signs: Vital Signs Temperature 97.0 F L 01/08/19 09:00 Pulse Rate 77 01/08/19 09:00 Respiratory Rate 20 07/15/19 09:00 Blood Pressure 144/67 01/08/19 09:00 O2 Sat by Pulse Oximetry (%) 94 L 01/07/19 21:00 Constitutional: Yes: Well Nourished Eyes: Yes: WNL HENT: Yes: WNL Neck: Yes: WNL Respiratory: Yes: SOB on Exertion Gastrointestinal: Yes: WNL ...Rectal Exam: Yes: Deferred Genitourinary: Yes: WNL Breast(s): Yes: WNL Musculoskeletal: Yes: WNL Extremities: Yes: WNL Edema: No Peripheral Pulses WNL: Yes Integumentary: Yes: WNL Neurological: Yes: WNL ...Motor Strength: WNL Psychiatric: Yes: WNL Labs: CBC, BMP 01/08/19 08:18 01/08/19 08:18 INR, PTT INR 1.18 (0.83-1.09) H 01/05/19 17:26 Assessment/Plan gentil diuresis out pt?? pulm to see pneumonia resoved cjk labs in am chk na level
[2019-01-08 11:42] LABS: ANISOCYTOSIS 0; MACROCYTOSIS 0; PLATELET ESTIMATE NORMAL
[2019-01-08] MEDS ORDERED: ALBUTEROL SO4 0.083% IH SOL 2.5 MG/3 ML VIAL.NEB. NEB PRN (11:48)
--- NOTE | 2019-01-08 11:49 | PN ---
Progress Note (short form) - Note Progress Note: PULMONARY Breathing about the same. Still with productive cough. No fevers or chills. Vital Signs Period Temp Pulse Resp BP Sys/Vazquez Pulse Ox Last 24 Hr 96.5 F-97.3 F 69-85 20-20 133-144/65-91 94 Gen: NAD at rest Heart: RRR Lung: scattered rhonchi Abd: soft, nontender Ext: no edema CBC, BMP 01/08/19 08:18 01/08/19 08:18 Active Medications Albuterol Sulfate (Ventolin Hfa Inhaler -) 2 puff IH Q4H PRN PRN Reason: SHORT OF BREATH/WHEEZING Aspirin (Asa -) 81 mg PO DAILY [facility] Last Admin: 01/08/19 11:34 Dose: 81 mg Piperacillin Sod/Tazobactam (Sod 3.375 gm/ Dextrose) 50 mls @ 100 mls/hr IVPB Q8H-IV RAMU; Protocol Last Admin: 01/08/19 10:29 Dose: 100 mls/hr Dextrose (D5w -) 1,000 mls @ 42 mls/hr IV ASDIR RAMU Last Admin: 01/07/19 14:00 Dose: 42 mls/hr Ipratropium [place] (Atrovent 0.02% Nebulizer -) 1 amp NEB Q6H PRN PRN Reason: DYSPEPSIA Stop: 01/13/19 00:21 Last Admin: 01/06/19 22:37 Dose: 1 amp Methylprednisolone Sodium Succinate (Solu-Medrol -) 20 mg IVPUSH Q8H-IV [facility]U Last Admin: 01/08/19 10:28 Dose: 20 mg Metoprolol Tartrate (Lopressor -) 25 mg PO BID [facility] Last Admin: 01/08/19 11:33 Dose: 25 mg Mometasone Furoate (Asmanex 110mcg -) 1 puff IH BID [facility] Last Admin: 01/08/19 10:29 Dose: Not Given Pantoprazole Sodium (Protonix Packets For Oral Suspension -) 40 mg PO DAILY [facility] Last Admin: 01/08/19 10:30 Dose: 40 mg Polyethylene Glycol (Miralax (For Daily Use) -) 17 gm PO DAILY [facility] Last Admin: 01/08/19 10:29 Dose: Not Given Sertraline HCl (Zoloft -) 50 mg PO DAILY [facility] Last Admin: 01/08/19 10:30 Dose: 50 mg Umeclidinium/Vilanterol (Anoro Ellipta 62.5-25 Mcg Inh) 1 puff IH DAILY [facility] Last Admin: 01/08/19 10:29 Dose: 1 puff Zolpidem Tartrate (Ambien -) 5 mg PO HS PRN PRN Reason: INSOMNIA A/P Pneumonia likely Aspiration Squamous Cell Ca of Tongue h/o Laryngeal Ca CAD s/p CABG LV Systolic Dysfunction COPD Anemia - continue antibiotics per ID - f/u cultures - continue medrol at current dose - inhaled bronchodilators - O2 to keep SpO2 >90% - aspiration precautions - DVT prophylaxis
--- NOTE | 2019-01-08 16:14 | PN ---
Progress Note, Physician History of Present Illness: failure to thrive mod swallow aspirating gi pineda peg to be done in am ?than tranfer or d/c to go to [facility] r/t and chemo - Current Medication List Current Medications: Active Medications Albuterol Sulfate (Ventolin Hfa Inhaler -) 2 puff IH Q4H PRN PRN Reason: SHORT OF BREATH/WHEEZING Albuterol Sulfate (Ventolin 0.083% Nebulizer Soln -) 1 amp NEB Q4H PRN PRN Reason: SHORT OF BREATH/WHEEZING Aspirin (Asa -) 81 mg PO DAILY [facility] Last Admin: 01/08/19 11:34 Dose: 81 mg Piperacillin Sod/Tazobactam (Sod 3.375 gm/ Dextrose) 50 mls @ 100 mls/hr IVPB Q8H-IV [facility]; Protocol Last Admin: 01/08/19 10:29 Dose: 100 mls/hr Dextrose (D5w -) 1,000 mls @ 42 mls/hr IV ASDIR RAMU Last Admin: 01/07/19 14:00 Dose: 42 mls/hr Methylprednisolone Sodium Succinate (Solu-Medrol -) 20 mg IVPUSH Q8H-IV [facility] Last Admin: 01/08/19 10:28 Dose: 20 mg Metoprolol Tartrate (Lopressor -) 25 mg PO BID [facility] Last Admin: 01/08/19 11:33 Dose: 25 mg Mometasone Furoate (Asmanex 110mcg -) 1 puff IH BID [facility] Last Admin: 01/08/19 10:29 Dose: Not Given Pantoprazole Sodium (Protonix Packets For Oral Suspension -) 40 mg PO DAILY [facility] Last Admin: 01/08/19 10:30 Dose: 40 mg Polyethylene Glycol (Miralax (For Daily Use) -) 17 gm PO DAILY [facility] Last Admin: 01/08/19 10:29 Dose: Not Given Sertraline HCl (Zoloft -) 50 mg PO DAILY [facility] Last Admin: 01/08/19 10:30 Dose: 50 mg Umeclidinium/Vilanterol (Anoro Ellipta 62.5-25 Mcg Inh) 1 puff IH DAILY [facility] Last Admin: 01/08/19 10:29 Dose: 1 puff Zolpidem Tartrate (Ambien -) 5 mg PO HS PRN PRN Reason: INSOMNIA - Objective Vital Signs: Vital Signs Temperature 97.5 F L 01/08/19 15:52 Pulse Rate 73 01/08/19 15:52 Respiratory Rate 20 01/08/19 15:52 Blood Pressure 131/78 01/08/19 15:52 O2 Sat by Pulse Oximetry (%) 94 L 01/07/19 21:00 Labs: CBC, BMP 01/08/19 08:18 01/08/19 08:18 INR, PTT INR 1.18 (0.83-1.09) H 01/05/19 17:26
--- NOTE | 2019-01-08 16:41 | PN ---
Progress Note (short form) - Note Progress Note: 78 year old male admitted with CHF, known case of CAD/s/p CABG, LV systolic dysfunction. Denies any further shortness of breath, chest pain or discomfort. Patient was found to have elevated sodium level and is currently receiving dextrose and water. Active Medications Albuterol Sulfate (Ventolin Hfa Inhaler -) 2 puff IH Q4H PRN PRN Reason: SHORT OF BREATH/WHEEZING Albuterol Sulfate (Ventolin 0.083% Nebulizer Soln -) 1 amp NEB Q4H PRN PRN Reason: SHORT OF BREATH/WHEEZING Aspirin (Asa -) 81 mg PO DAILY [facility] Last Admin: 01/08/19 11:34 Dose: 81 mg Piperacillin Sod/Tazobactam (Sod 3.375 gm/ Dextrose) 50 mls @ 100 mls/hr IVPB Q8H-IV [facility]; Protocol Last Admin: 01/08/19 10:29 Dose: 100 mls/hr Dextrose (D5w -) 1,000 mls @ 42 mls/hr IV ASDIR RAMU Last Admin: 01/07/19 14:00 Dose: 42 mls/hr Methylprednisolone Sodium Succinate (Solu-Medrol -) 20 mg IVPUSH Q8H-IV [facility] Last Admin: 01/08/19 10:28 Dose: 20 mg Metoprolol Tartrate (Lopressor -) 25 mg PO BID [facility] Last Admin: 01/08/19 11:33 Dose: 25 mg Mometasone Furoate (Asmanex 110mcg -) 1 puff IH BID [facility] Last Admin: 01/08/19 10:29 Dose: Not Given Pantoprazole Sodium (Protonix Packets For Oral Suspension -) 40 mg PO DAILY [facility] Last Admin: 01/08/19 10:30 Dose: 40 mg Polyethylene Glycol (Miralax (For Daily Use) -) 17 gm PO DAILY [facility] Last Admin: 01/08/19 10:29 Dose: Not Given Sertraline HCl (Zoloft -) 50 mg PO DAILY [facility] Last Admin: 01/08/19 10:30 Dose: 50 mg Umeclidinium/Vilanterol (Anoro Ellipta 62.5-25 Mcg Inh) 1 puff IH DAILY [facility] Last Admin: 01/08/19 10:29 Dose: 1 puff Zolpidem Tartrate (Ambien -) 5 mg PO HS PRN PRN Reason: INSOMNIA Last Vital Signs Temp Pulse Resp BP Pulse Ox 97.5 F L 85 20 131/78 94 L 01/08/19 15:52 01/08/19 16:35 01/08/19 15:52 01/08/19 15:52 01/08/19 16:35 Neck: Supple, no JVD, negative HJR, carotids were equal and upstrokes were normal, no thyromegaly appreciated. Heart: PMI was in the 5th intercostal space, no heaves or thrills, S1 and S2 were normal. No murmurs or gallops were appreciated. Lungs: Clear on auscultation bilaterally. Abdomen: Soft, nontender, no hepatosplenomegaly appreciated, and no palpable masses were felt. Bowel sounds were present, no bruits were heard. Extremities: No calf tenderness or dependent edema. Pulses were equal. CBC, BMP 01/08/19 08:18 01/08/19 08:18 Impressions: 1. Congestive Heart Failure, clinically appears resolved. 2. Left ventricular systolic. 3. CAD/CABG. 4. History of hypercholesterimia. 5. History of carcinoma of the tongue. 6. Pre-renal azotemia. 7. Anemia. Recommendations: 1. Lipid profile. 2. In view of coronary artery disease consider addition of statin. 3. Followup BMP. Ward Swain
[2019-01-08] MEDS: DEXTROSE 5%-WATER - 1,000 ML IV SCH (17:36)
[2019-01-08] MEDS ORDERED: PHYTONADIONE 10 MG/1 ML AMP IM ONE (20:15)
[2019-01-08] MEDS ORDERED: AMINO ACIDS 4.25%/D5W 1,000 ML IV SCH (21:30)
[2019-01-09] MEDS: METOPROLOL TARTRATE 25 MG TABLET (FP) PO SCH (01:40)
[2019-01-09] MEDS ORDERED: DEXTROSE 5%-WATER - 50 ML IVPB ONE ×3 (01:42→16:56)
[2019-01-09] MEDS ORDERED: PIPERACILLIN/TAZOBACTAM 3.375 GM VIAL IVPB ONE ×3 (01:42→16:56)
[2019-01-09] MEDS: methylPREDNISolone NA SUCC 40 MG/1 ML VIAL IVPUSH SCH ×2 (01:55→12:14)
[2019-01-09] MEDS: PIPERACILLIN/TAZOB 3.375 GM 3.375 GM in DEXTROSE 5%-WATER - 50 ML IVPB SCH ×3 (01:55→17:33)
[2019-01-09] MEDS ORDERED: TETRACAINE/BENZOCAINE/BUTAMBEN 20 GM SPR TP ONE (07:35)
[2019-01-09] MEDS ORDERED: MIDAZOLAM HCL 2 MG/2 ML SINGLE DOSE VIAL ONE (07:37)
--- NOTE | 2019-01-09 07:40 | CON.GI ---
Consult Consult Specialty:: GI - History of Present Illness History of Present Illness: Ask to see patient for PEG insertion. &8 y/o male with PMH of Stage III laryngeal Ca, COPD, CHF was admitted with Aspiration pneumonia. He failed swallowing evaluation yesterday. 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: No: Alzheimer's Cardio/Vascular: Yes: AFIB, CHF, HTN, [place], Other (low ejecc fx less 3o) Pulmonary: Yes: COPD, Pneumonia Gastrointestinal: No: Ascites Hepatobiliary: No: Cirrhosis Renal/: No: Renal Failure Musculoskeletal: Yes: Chronic low back pain ENT: Yes: Other (h/o laryngeal ca) - Past Surgical History Past Surgical History: Yes: Bypass (x 3) - Alcohol/Substance Use Hx Alcohol Use: No History of Substance Use: reports: None - Smoking History Smoking history: Former smoker Have you smoked in the past 12 months: No If you are a former smoker, when did you quit?: 3 YEARS AGO - Social History Usual Living Arrangement: With Spouse ADL: Family Assistance History of Recent Travel: No Home Medications - Allergies Allergies/Adverse Reactions: Allergies Allergy/AdvReac Type Severity Reaction Status Date / Time No Known Allergies Allergy Verified 01/05/19 16:13 - Home Medications Home Medications: Ambulatory Orders Furosemide 40 mg PO BID 04/20/17 Atorvastatin Ca [Lipitor] 40 mg PO HS 05/17/17 Aspirin [ASA -] 81 mg PO DAILY tab.chew 05/21/17 Sertraline HCl [Zoloft -] 50 mg PO DAILY tablet 05/21/17 Levothyroxine [Synthroid -] 25 mcg PO DAILY 01/05/19 Metoprolol Tartrate [Lopressor -] 50 mg PO BID 01/05/19 Physical Exam-GI Vital Signs: Vital Signs Temperature 97.7 F 01/09/19 02:00 Pulse Rate 79 01/09/19 02:00 Respiratory Rate 20 01/09/19 02:00 Blood Pressure 138/89 01/09/19 02:00 O2 Sat by Pulse Oximetry (%) 94 L 01/08/19 16:35 Constitutional: Yes: Cachectic Eyes: Yes: Conjunctiva Clear HENT: Yes: Atraumatic Neck: Yes: Supple Cardiovascular: Yes: Regular Rate and Rhythm Respiratory: Yes: CTA Bilaterally ...Palpate: Yes: Soft. No: Firm/Rigid, Guarding, Hepatomegaly, Mass, Pulsatile Mass, Splenomegaly, Tenderness Labs: CBC, BMP 01/08/19 08:18 01/08/19 08:18 INR, PTT INR 1.18 (0.83-1.09) H 01/05/19 17:26 Problem List - Problems (1) Status post insertion of percutaneous endoscopic gastrostomy (PEG) tube Assessment/Plan: >PEG tube inserted due to failing swallow eval >when stable patient will be transferred to [facility] for RT and chemotherapy Code(s): Z93.1 - GASTROSTOMY STATUS
[2019-01-09] MEDS ORDERED: PT OWN MED DRAWER 7, Y5N ONE ×2 (09:10→21:29)
[2019-01-09] MEDS ORDERED: ZOLPIDEM TARTRATE 5 MG TABLET PO PRN (09:46)
[2019-01-09] MEDS ORDERED: METOPROLOL TARTRATE 25 MG TABLET (FP) PO SCH (10:00)
[2019-01-09] MEDS ORDERED: methylPREDNISolone NA SUCC 40 MG/1 ML VIAL IVPUSH SCH (10:00)
--- NOTE | 2019-01-09 10:47 | PN ---
Progress Note (short form) - Note Progress Note: 78 year old male admitted with CHF, known case of CAD/s/p CABG, LV systolic dysfunction,hypertension, hypertensive cardiovascular disease, history of paroxysmal atrial flutter, COPD, status post radiation therapy for laryngeal carcinoma. Patient initial symptoms were increasing shortness of breath and pedal edema, he is currently undergoing radiation therapy for carcinoma of the tongue. Patient is feeling better and denies having shortness of breath. No chest pain or discomfort, no palpitations were reported. Active Medications Albuterol Sulfate (Ventolin 0.083% Nebulizer Soln -) 1 amp NEB Q4H PRN PRN Reason: SHORT OF BREATH/WHEEZING Albuterol Sulfate (Ventolin Hfa Inhaler -) 2 puff IH Q4H PRN PRN Reason: SHORT OF BREATH/WHEEZING Piperacillin Sod/Tazobactam (Sod 3.375 gm/ Dextrose) 50 mls @ 100 mls/hr IVPB Q8H-IV RAMU; Protocol Methylprednisolone Sodium Succinate (Solu-Medrol -) 20 mg IVPUSH Q8H-IV [facility]U Metoprolol Tartrate (Lopressor -) 25 mg PO BID [facility]U Mometasone Furoate (Asmanex 110mcg -) 1 puff IH BID [facility]U Pantoprazole Sodium (Protonix Packets For Oral Suspension -) 40 mg PO DAILY [facility] Polyethylene Glycol (Miralax (For Daily Use) -) 17 gm PO DAILY [facility] Sertraline HCl (Zoloft -) 50 mg PO DAILY [facility] Umeclidinium/Vilanterol (Anoro Ellipta 62.5-25 Mcg Inh) 1 puff IH DAILY [facility] Zolpidem Tartrate (Ambien -) 5 mg PO HS PRN PRN Reason: INSOMNIA Last Vital Signs Temp Pulse Resp BP Pulse Ox 97.6 F 90 19 143/86 98 01/09/19 08:53 01/09/19 08:53 01/09/19 08:53 01/09/19 08:53 01/09/19 08:53 Neck: Supple, no jugular venous distention, carotids were 2+, upstrokes were normal, no bruits were heard. Heart: PMI was in the fifth intercostal space, no heaves or thrills, S1 and S2 were normal, grade 1/6 apical systolic murmur. No gallops were heard. Lungs: Clear on auscultation. Abdomen: Soft, nontender, no hepatosplenomegaly or palpable masses were felt. Extremities: No calf tenderness or dependent edema. CBC, BMP 01/08/19 08:18 BMP: Sodium 145 mmol/L Potassium 3.8 mmol/L Chloride 110 mmol/L CO2 33 mmol/L BUN 41.3 mg/dL Creatinine 1.1 mg/dL Impression: 1. Congestive heart failure [place] heart classification III, resolving. 2. Coronary artery disease, status post CABG. 3. Left ventricular systolic dysfunction of moderate severity. 4. Hypercholesterolemia. 5. COPD. 6. Hypertension, hypertensive cardiovascular disease, currently normotensive. 7. Prerenal azotemia and elevated sodium levelspossibly related to dehydration. 8. Anemia. Recommendations: 1. Continue medications as outlined. 2. Check stool guaiacs. 3. Follow-up basic metabolic profile. Ward Swain MD.
--- NOTE | 2019-01-09 10:58 | PN ---
Progress Note, Physician History of Present Illness: s/p peg intact selr suction prn oob - Current Medication List Current Medications: Active Medications Albuterol Sulfate (Ventolin 0.083% Nebulizer Soln -) 1 amp NEB Q4H PRN PRN Reason: SHORT OF BREATH/WHEEZING Albuterol Sulfate (Ventolin Hfa Inhaler -) 2 puff IH Q4H PRN PRN Reason: SHORT OF BREATH/WHEEZING Piperacillin Sod/Tazobactam (Sod 3.375 gm/ Dextrose) 50 mls @ 100 mls/hr IVPB Q8H-IV RAMU; Protocol Methylprednisolone Sodium Succinate (Solu-Medrol -) 20 mg IVPUSH Q8H-IV [facility]U Metoprolol Tartrate (Lopressor -) 25 mg PO BID [facility]U Mometasone Furoate (Asmanex 110mcg -) 1 puff IH BID RAMU Pantoprazole Sodium (Protonix Packets For Oral Suspension -) 40 mg PO DAILY [facility] Polyethylene Glycol (Miralax (For Daily Use) -) 17 gm PO DAILY [facility] Sertraline HCl (Zoloft -) 50 mg PO DAILY [facility] Umeclidinium/Vilanterol (Anoro Ellipta 62.5-25 Mcg Inh) 1 puff IH DAILY [facility] Zolpidem Tartrate (Ambien -) 5 mg PO HS PRN PRN Reason: INSOMNIA - Objective Vital Signs: Vital Signs Temperature 97.6 F 01/09/19 08:53 Pulse Rate 90 01/09/19 08:53 Respiratory Rate 19 01/09/19 08:53 Blood Pressure 143/86 01/09/19 08:53 O2 Sat by Pulse Oximetry (%) 98 01/09/19 08:53 Constitutional: Yes: Calm Eyes: Yes: WNL, Occular Prosthesis Neck: Yes: WNL Cardiovascular: Yes: WNL Respiratory: Yes: SOB on Exertion Gastrointestinal: Yes: Other (peg intact) ...Rectal Exam: Yes: WNL Genitourinary: Yes: CVA Tenderness - Right Breast(s): Yes: WNL Musculoskeletal: Yes: WNL Extremities: Yes: WNL Edema: No Peripheral Pulses WNL: Yes Integumentary: Yes: WNL Wound/Incision: Yes: Clean/Dry Neurological: Yes: WNL, Unresponsive Psychiatric: Yes: WNL Labs: CBC, BMP 01/08/19 08:18 INR, PTT INR 1.18 (0.83-1.09) H 01/05/19 17:26 Assessment/Plan ? d/c in am dieticion vns p/t eval cxr in am to see pnuemonia resolving? pre post o2 ambulation
[2019-01-09 11:29] LABS: BLOOD UREA NITROGEN 41.3 mg/dL (7-18); CALCIUM 8.8 mg/dL (8.5-10.1); CREATININE 1.1 mg/dL (0.55-1.3); POTASSIUM 3.8 mmol/L (3.5-5.1)
--- NOTE | 2019-01-09 11:38 | PN ---
Progress Note (short form) - Note Progress Note: PULMONARY s/p PEG placement. Still with productive cough. No fevers or chills. Vital Signs Period Temp Pulse Resp BP Sys/Vazquez Pulse Ox Last 24 Hr 97.0 F-97.7 F 64-90 16-20 111-143/69-89 92-98 Gen: NAD at rest Heart: RRR Lung: scattered rhonchi Abd: soft, nontender Ext: no edema CBC, BMP 01/08/19 08:18 01/09/19 10:05 Active Medications Albuterol Sulfate (Ventolin 0.083% Nebulizer Soln -) 1 amp NEB Q4H PRN PRN Reason: SHORT OF BREATH/WHEEZING Albuterol Sulfate (Ventolin Hfa Inhaler -) 2 puff IH Q4H PRN PRN Reason: SHORT OF BREATH/WHEEZING Piperacillin Sod/Tazobactam (Sod 3.375 gm/ Dextrose) 50 mls @ 100 mls/hr IVPB Q8H-IV RAMU; Protocol Methylprednisolone Sodium Succinate (Solu-Medrol -) 20 mg IVPUSH Q8H-IV RAMU Metoprolol Tartrate (Lopressor -) 25 mg PO BID RAMU Mometasone Furoate (Asmanex 110mcg -) 1 puff IH BID RAMU Pantoprazole Sodium (Protonix Packets For Oral Suspension -) 40 mg PO DAILY [facility] Polyethylene Glycol (Miralax (For Daily Use) -) 17 gm PO DAILY [facility] Sertraline HCl (Zoloft -) 50 mg PO DAILY [facility] Umeclidinium/Vilanterol (Anoro Ellipta 62.5-25 Mcg Inh) 1 puff IH DAILY [facility] Zolpidem Tartrate (Ambien -) 5 mg PO HS PRN PRN Reason: INSOMNIA A/P Pneumonia likely Aspiration 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
[2019-01-09] MEDS: MOMETASONE FUROATE 110 MCG/IH INHALER IH SCH ×2 (12:13→22:25)
[2019-01-09] MEDS: UMECLIDINIUM/VILANTEROL (ANORO) 62.5/25 MCG INHALER IH SCH (12:13)
[2019-01-09] MEDS: POLYETHYLENE GLYCOL 3350 119 GM BTL PO SCH (12:14)
[2019-01-09] MEDS: PANTOPRAZOLE SOD 40 MG SUSPENSION PACKET PO SCH (12:15)
[2019-01-09] MEDS: SERTRALINE HCL 50 MG TABLET (FP) PO SCH (12:15)
--- NOTE | 2019-01-09 12:16 | PN ---
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 Pt looks well, verbal, comfortable. Family inquiring about ability to recline while getting tube feeding. Discussed with family and medical staff increased risk of aspiration with TF. HOB needs to be elevated during TF. Options of hospital bed with HOB elevated vs day time TF feedings? Reviewed with Nsg, CCC, PMD, RD. RD recommendations pending. To continue sp/sw f/u at [facility] as out pt.
--- NOTE | 2019-01-09 14:07 | ECHO ---
Version: 1 Name: ATILIO LOVELACE Exam: Adult Echocardiogram Study Date: 01/09/2019, 9:32 AM Age: 78 Years MMode/2D Measurements & Calculations IVSd: 1.06 cm LVIDs: 4.6 cm LVIDd: 5.7 cm LVPWd: 0.94 cm LVOT diam: 2.11 cm Ao root diam: 3.8 cm LA dimension: 4.3 cm Doppler Measurements & Calculations MV E max lukasz: 107.6 cm/sec MV V2 max: 155.6 cm/sec MV A max lukasz: 53.8 cm/sec MV max P.7 mmHg MV mean P.2 mmHg Med E/e': 16.9 MV E/A: 2.00 Med Peak E' Lukasz: 6.4 cm/sec Lat E/e': 16.3 Lat Peak E' Lukasz: 6.6 cm/sec MR max P.5 mmHg Ao max P.4 mmHg Ao mean P.9 mmHg Ao V2 max: 126.2 cm/sec AI P1/2t: 352.6 msec PI end-d lukasz: 165.6 cm/sec TR max lukasz: 261.3 cm/sec TR max P.4 mmHg Procedure The study was technically adequate with some images being suboptimal in quality. Left Ventricle Ejection Fraction = 35%. Moderately reduced LV systolic function. inferior and posterolateral wall a kinesis. There are regional wall motion abnormalities as specified. Right Ventricle The right ventricle is normal in size and function. Atria The left atrium is mildly dilated. Right atrial size is normal. Mitral Valve The mitral valve is normal in structure and function. There is severe mitral regurgitation. Tricuspid Valve The tricuspid valve is normal in structure and function. There is mild tricuspid regurgitation. Aortic Valve There is moderate aortic sclerosis.;. Mild aortic regurgitation. Pulmonic Valve The pulmonic valve is not well visualized. Great Vessels The aortic root is normal size. Pericardium/Pleura There is no pericardial effusion. Summary Statements There are regional wall motion abnormalities as specified. Moderately reduced LV systolic function Ejection Fraction = 35%. There is severe mitral regurgitation. Jose J Mcdonnell 01/09/2019, 1:07 PM Ordering Physician: Clifford Beltran Referring Physician: CLIFFORD BELTRAN Performed By: Lizbet Carter
--- NOTE | 2019-01-09 15:15 | PN ---
Progress Note (short form) - Note Progress Note: s/p PEG tube noted to aspirate on swallowing evaluation Vital Signs Period Temp Pulse Resp BP Sys/Vazquez Pulse Ox Last 24 Hr 97.0 F-97.7 F 64-93 16-20 111-143/69-89 92-98 cor-rrr lungs decreased bs at bases abd soft,nt +dressing with PEG ext no edema CBC, BMP 01/08/19 08:18 01/09/19 10:05 Microbiology 01/06/19 12:55 Blood - Peripheral Venous Blood Culture - Preliminary NO GROWTH OBTAINED AFTER 72 HOURS, INCUBATION TO CONTINUE FOR 2 DAYS. 01/06/19 13:00 Blood - Peripheral Venous Blood Culture - Preliminary NO GROWTH OBTAINED AFTER 72 HOURS, INCUBATION TO CONTINUE FOR 2 DAYS. 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
[2019-01-09 15:26] VITALS: BMI 17.0
[2019-01-10] MEDS ORDERED: DEXTROSE 5%-WATER - 50 ML IVPB ONE ×3 (01:48→17:22)
[2019-01-10] MEDS ORDERED: PIPERACILLIN/TAZOBACTAM 3.375 GM VIAL IVPB ONE ×3 (01:48→17:22)
[2019-01-10] MEDS: PIPERACILLIN/TAZOB 3.375 GM 3.375 GM in DEXTROSE 5%-WATER - 50 ML IVPB SCH ×3 (02:02→17:35)
[2019-01-10] MEDS: ALBUTEROL SO4 0.083% IH SOL 2.5 MG/3 ML VIAL.NEB. NEB PRN (03:19)
[2019-01-10 07:06] LABS: BASO % 0.1 % (0-2.0); EOS % 2.9 % (0-4.5); HEMATOCRIT 30.1 % (35.4-49); LYMPH % 7.8 % (8-40); MCH 31.5 pg (25.7-33.7); MCHC 33.3 g/dl (32.0-35.9); MEAN CELL VOLUME 94.6 fl (80-96); MEAN PLT VOLUME 8.8 fl (7.5-11.1); MONO % 4.2 % (3.8-10.2); RBC 3.19 M/mm3 (4.00-5.60); RDW 14.1 % (11.9-15.9); WHITE BLOOD COUNT 6.4 K/mm3 (4.0-10.0)
[2019-01-10 07:13] LABS: BLOOD UREA NITROGEN 39.2 mg/dL (7-18); CALCIUM 8.6 mg/dL (8.5-10.1); CREATININE 1.1 mg/dL (0.55-1.3); POTASSIUM 3.7 mmol/L (3.5-5.1)
[2019-01-10 07:34] LABS: PLATELET COUNT 174 K/MM3 (134-434)
[2019-01-10] MEDS: POLYETHYLENE GLYCOL 3350 119 GM BTL PO SCH (10:25)
[2019-01-10] MEDS: SERTRALINE HCL 50 MG TABLET (FP) PO SCH (10:25)
[2019-01-10] MEDS: PANTOPRAZOLE SOD 40 MG SUSPENSION PACKET PO SCH (10:25)
[2019-01-10] MEDS: methylPREDNISolone NA SUCC 40 MG/1 ML VIAL IVPUSH SCH (10:26)
[2019-01-10] MEDS: UMECLIDINIUM/VILANTEROL (ANORO) 62.5/25 MCG INHALER IH SCH (10:27)
[2019-01-10] MEDS: MOMETASONE FUROATE 110 MCG/IH INHALER IH SCH ×2 (10:28→22:00)
--- NOTE | 2019-01-10 13:33 | PN ---
Progress Note, Physician Chief Complaint: n/c in medical status self suctioning cxr n/c ct will be don today - Current Medication List Current Medications: Active Medications Albuterol Sulfate (Ventolin 0.083% Nebulizer Soln -) 1 amp NEB Q4H PRN PRN Reason: SHORT OF BREATH/WHEEZING Last Admin: 01/10/19 03:19 Dose: 1 amp Albuterol Sulfate (Ventolin Hfa Inhaler -) 2 puff IH Q4H PRN PRN Reason: SHORT OF BREATH/WHEEZING Piperacillin Sod/Tazobactam (Sod 3.375 gm/ Dextrose) 50 mls @ 100 mls/hr IVPB Q8H-IV RAMU; Protocol Last Admin: 01/10/19 10:26 Dose: 100 mls/hr Methylprednisolone Sodium Succinate (Solu-Medrol -) 20 mg IVPUSH DAILY [facility] Last Admin: 01/10/19 10:26 Dose: 20 mg Mometasone Furoate (Asmanex 110mcg -) 1 puff IH BID [facility] Last Admin: 01/10/19 10:28 Dose: 1 puff Pantoprazole Sodium (Protonix Packets For Oral Suspension -) 40 mg PO DAILY RAMU Last Admin: 01/10/19 10:25 Dose: 40 mg Polyethylene Glycol (Miralax (For Daily Use) -) 17 gm PO DAILY RAMU Last Admin: 01/10/19 10:25 Dose: 17 grams Propranolol HCl (Inderal -) 10 mg PEG TID RAMU Last Admin: 01/10/19 06:41 Dose: 10 mg Sertraline HCl (Zoloft -) 50 mg PO DAILY [facility] Last Admin: 01/10/19 10:25 Dose: 50 mg Umeclidinium/Vilanterol (Anoro Ellipta 62.5-25 Mcg Inh) 1 puff IH DAILY [facility] Last Admin: 01/10/19 10:27 Dose: 1 puff Zolpidem Tartrate (Ambien -) 5 mg PO HS PRN PRN Reason: INSOMNIA - Objective Vital Signs: Vital Signs Temperature 96.7 F L 01/10/19 10:00 Pulse Rate 88 01/10/19 10:00 Respiratory Rate 20 01/10/19 10:00 Blood Pressure 155/90 01/10/19 10:00 O2 Sat by Pulse Oximetry (%) 95 01/09/19 21:00 Constitutional: Yes: No Distress, Calm Eyes: Yes: WNL HENT: Yes: WNL Neck: Yes: Other (rigid) Cardiovascular: Yes: Pulse Irregular Respiratory: Yes: SOB on Exertion Gastrointestinal: Yes: Other (peg intact) ...Rectal Exam: Yes: Deferred Genitourinary: Yes: WNL Breast(s): Yes: WNL Musculoskeletal: Yes: Back Pain Extremities: Yes: WNL Edema: No Peripheral Pulses WNL: Yes Integumentary: Yes: WNL Neurological: Yes: WNL ...Motor Strength: WNL Psychiatric: Yes: WNL Labs: CBC, BMP 01/10/19 06:24 01/10/19 06:24 INR, PTT INR 1.18 (0.83-1.09) H 01/05/19 17:26 Assessment/Plan ct chest today hold off d/c needs pump itermitent feeding at home needs vns needs selr suction apparatus for him to do needs oxygen w pulse oxi to adjusty 500 cc qid feeding? 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
--- NOTE | 2019-01-10 14:28 | PN ---
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 PEG. HOB elevated during and after PEG feedings to minimize risk of retrograde aspiration. Pt /family education provided. Continue swallowing tx at [facility].
--- NOTE | 2019-01-10 14:31 | PN ---
Progress Note (short form) - Note Progress Note: PULMONARY Coughing less. No fevers or chills. Vital Signs Period Temp Pulse Resp BP Sys/Vazquez Pulse Ox Last 24 Hr 96.7 F-98.2 F 74-88 18-20 133-155/75-98 95 Gen: NAD at rest Heart: RRR Lung: scattered rhonchi Abd: soft, nontender Ext: no edema CBC, BMP 01/10/19 06:24 01/10/19 06:24 Active Medications Albuterol Sulfate (Ventolin 0.083% Nebulizer Soln -) 1 amp NEB Q4H PRN PRN Reason: SHORT OF BREATH/WHEEZING Last Admin: 01/10/19 03:19 Dose: 1 amp Albuterol Sulfate (Ventolin Hfa Inhaler -) 2 puff IH Q4H PRN PRN Reason: SHORT OF BREATH/WHEEZING Piperacillin Sod/Tazobactam (Sod 3.375 gm/ Dextrose) 50 mls @ 100 mls/hr IVPB Q8H-IV RAMU; Protocol Last Admin: 01/10/19 10:26 Dose: 100 mls/hr Methylprednisolone Sodium Succinate (Solu-Medrol -) 20 mg IVPUSH DAILY COUNTS INCLUDE 234 BEDS AT THE [facility] Last Admin: 01/10/19 10:26 Dose: 20 mg Mometasone Furoate (Asmanex 110mcg -) 1 puff IH BID COUNTS INCLUDE 234 BEDS AT THE [facility] Last Admin: 01/10/19 10:28 Dose: 1 puff Pantoprazole Sodium (Protonix Packets For Oral Suspension -) 40 mg PO DAILY [facility]U Last Admin: 01/10/19 10:25 Dose: 40 mg Polyethylene Glycol (Miralax (For Daily Use) -) 17 gm PO DAILY [facility]U Last Admin: 01/10/19 10:25 Dose: 17 grams Propranolol HCl (Inderal -) 10 mg PEG TID [facility]U Last Admin: 01/10/19 13:47 Dose: 10 mg Sertraline HCl (Zoloft -) 50 mg PO DAILY [facility]S INCLUDE 234 BEDS AT THE [facility] Last Admin: 01/10/19 10:25 Dose: 50 mg Umeclidinium/Vilanterol (Anoro Ellipta 62.5-25 Mcg Inh) 1 puff IH DAILY COUNTS INCLUDE 234 BEDS AT THE [facility] Last Admin: 01/10/19 10:27 Dose: 1 puff Zolpidem Tartrate (Ambien -) 5 mg PO HS PRN PRN Reason: INSOMNIA A/P Pneumonia likely Aspiration 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
--- NOTE | 2019-01-10 18:11 | PN ---
Progress Note (short form) - Note Progress Note: 78 year old male admitted with CHF, known case of CAD/s/p CABG, LV systolic dysfunction. Denies any further shortness of breath, chest pain or discomfort. Patient was found to have elevated sodium level and is currently receiving dextrose and water. Active Medications Albuterol Sulfate (Ventolin 0.083% Nebulizer Soln -) 1 amp NEB Q4H PRN PRN Reason: SHORT OF BREATH/WHEEZING Last Admin: 01/10/19 03:19 Dose: 1 amp Albuterol Sulfate (Ventolin Hfa Inhaler -) 2 puff IH Q4H PRN PRN Reason: SHORT OF BREATH/WHEEZING Piperacillin Sod/Tazobactam (Sod 3.375 gm/ Dextrose) 50 mls @ 100 mls/hr IVPB Q8H-IV [facility]U; Protocol Last Admin: 01/10/19 17:35 Dose: 100 mls/hr Mometasone Furoate (Asmanex 110mcg -) 1 puff IH BID [facility] Last Admin: 01/10/19 10:28 Dose: 1 puff Pantoprazole Sodium (Protonix Packets For Oral Suspension -) 40 mg PO DAILY [facility] Last Admin: 01/10/19 10:25 Dose: 40 mg Polyethylene Glycol (Miralax (For Daily Use) -) 17 gm PO DAILY [facility] Last Admin: 01/10/19 10:25 Dose: 17 grams Prednisone (Deltasone -) 20 mg PO DAILY [facility] Stop: 01/12/19 10:01 Propranolol HCl (Inderal -) 10 mg PEG TID [facility] Last Admin: 01/10/19 13:47 Dose: 10 mg Sertraline HCl (Zoloft -) 50 mg PO DAILY [facility] Last Admin: 01/10/19 10:25 Dose: 50 mg Umeclidinium/Vilanterol (Anoro Ellipta 62.5-25 Mcg Inh) 1 puff IH DAILY [facility] Last Admin: 01/10/19 10:27 Dose: 1 puff Zolpidem Tartrate (Ambien -) 5 mg PO HS PRN PRN Reason: INSOMNIA Last Vital Signs Temp Pulse Resp BP Pulse Ox 98.4 F 84 20 146/86 95 01/10/19 10:00 01/10/19 10:00 01/10/19 10:00 01/10/19 10:00 01/10/19 09:00 Neck: Supple, no JVD, negative HJR, carotids were equal and upstrokes were normal, no thyromegaly appreciated. Heart: PMI was in the 5th intercostal space, no heaves or thrills, S1 and S2 were normal. No murmurs or gallops were appreciated. Lungs: Clear on auscultation bilaterally. Abdomen: Soft, nontender, no hepatosplenomegaly appreciated, and no palpable masses were felt. Bowel sounds were present, no bruits were heard. Extremities: No calf tenderness or dependent edema. Pulses were equal. CBC, BMP 01/10/19 06:24 01/10/19 06:24 Impressions: 1. Congestive Heart Failure, clinically appears resolved. 2. Left ventricular systolic. 3. CAD/CABG. 4. History of hypercholesterimia. 5. History of carcinoma of the tongue. 6. Pre-renal azotemia. 7. Anemia. Recommendations: 1. Lipid profile. 2. In view of coronary artery disease consider addition of statin. 3. Followup BMP. Ward Swain
[2019-01-11] MEDS ORDERED: PIPERACILLIN/TAZOBACTAM 3.375 GM VIAL IVPB ONE ×2 (00:50→09:30)
[2019-01-11] MEDS ORDERED: DEXTROSE 5%-WATER - 50 ML IVPB ONE ×2 (00:50→09:30)
[2019-01-11] MEDS: PIPERACILLIN/TAZOB 3.375 GM 3.375 GM in DEXTROSE 5%-WATER - 50 ML IVPB SCH ×2 (01:00→11:47)
[2019-01-11] MEDS: ALBUTEROL SO4 0.083% IH SOL 2.5 MG/3 ML VIAL.NEB. NEB PRN (07:25)
[2019-01-11] MEDS ORDERED: PT OWN MED DRAWER 7, Y5N ONE ×4 (09:30→22:29)
[2019-01-11] MEDS ORDERED: predniSONE 20 MG TABLET (UD) PO SCH (10:00)
--- NOTE | 2019-01-11 10:12 | PN ---
Progress Note (short form) - Note Progress Note: PULMONARY Coughing less. No fevers or chills. Ambulating without difficulty. Saturating 86 % on room air. CT chest confirming bilateral infiltrates. Vital Signs Period Temp Pulse Resp BP Sys/Vazquez Pulse Ox Last 24 Hr 97.4 F-97.6 F 76-83 18-20 144-153/81-90 94 Gen: NAD at rest Heart: RRR Lung: scattered rhonchi Abd: soft, nontender Ext: no edema CBC, BMP 01/10/19 06:24 01/10/19 06:24 Active Medications Albuterol Sulfate (Ventolin 0.083% Nebulizer Soln -) 1 amp NEB Q4H PRN PRN Reason: SHORT OF BREATH/WHEEZING Last Admin: 01/11/19 07:25 Dose: 1 amp Albuterol Sulfate (Ventolin Hfa Inhaler -) 2 puff IH Q4H PRN PRN Reason: SHORT OF BREATH/WHEEZING Piperacillin Sod/Tazobactam (Sod 3.375 gm/ Dextrose) 50 mls @ 100 mls/hr IVPB Q8H-IV [facility]; Protocol Last Admin: 01/11/19 01:00 Dose: 100 mls/hr Mometasone Furoate (Asmanex 110mcg -) 1 puff IH BID [facility] Last Admin: 01/10/19 22:00 Dose: 1 puff Pantoprazole Sodium (Protonix Packets For Oral Suspension -) 40 mg PO DAILY [facility] Last Admin: 01/10/19 10:25 Dose: 40 mg Polyethylene Glycol (Miralax (For Daily Use) -) 17 gm PO DAILY [facility] Last Admin: 01/10/19 10:25 Dose: 17 grams Prednisone (Deltasone -) 20 mg PO DAILY [facility] Stop: 01/12/19 10:01 Propranolol HCl (Inderal -) 10 mg PEG TID [facility] Last Admin: 01/11/19 06:50 Dose: 10 mg Sertraline HCl (Zoloft -) 50 mg PO DAILY [facility] Last Admin: 01/10/19 10:25 Dose: 50 mg Umeclidinium/Vilanterol (Anoro Ellipta 62.5-25 Mcg Inh) 1 puff IH DAILY [facility] Last Admin: 01/10/19 10:27 Dose: 1 puff Zolpidem Tartrate (Ambien -) 5 mg PO HS PRN PRN Reason: INSOMNIA A/P Pneumonia likely Aspiration 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
[2019-01-11] MEDS: SERTRALINE HCL 50 MG TABLET (FP) PO SCH (10:29)
[2019-01-11] MEDS: PANTOPRAZOLE SOD 40 MG SUSPENSION PACKET PO SCH (10:29)
--- NOTE | 2019-01-11 10:29 | DS ---
Physical Examination Vital Signs: Vital Signs Temperature 97.6 F 01/11/19 06:57 Pulse Rate 83 01/11/19 06:57 Respiratory Rate 20 01/11/19 06:57 Blood Pressure 149/84 01/11/19 06:57 O2 Sat by Pulse Oximetry (%) 94 L 01/10/19 21:00 Constitutional: Yes: No Distress Eyes: Yes: WNL HENT: Yes: WNL Neck: Yes: Rigid Cardiovascular: Yes: Pulse Irregular Respiratory: Yes: SOB on Exertion Gastrointestinal: Yes: WNL, Other (pej intact) ...Rectal Exam: Yes: Deferred Renal/: Yes: WNL Breast(s): Yes: WNL Musculoskeletal: Yes: Back Pain Extremities: Yes: WNL Edema: No Peripheral Pulses WNL: Yes Integumentary: Yes: WNL Wound/Incision: Yes: Clean/Dry Neurological: Yes: WNL ...Motor Strength: WNL Psychiatric: Yes: WNL Labs: CBC, BMP 01/10/19 06:24 01/10/19 06:24 Discharge Summary Reason For Visit: ACUTE ON CHRONIC CHF Current Active Problems Aspiration pneumonia (Acute) CHF exacerbation (Acute) Pneumonitis due to food and vomit (Acute) SOB (shortness of breath) (Acute) Status post insertion of percutaneous endoscopic gastrostomy (PEG) tube (Acute) Tongue cancer (Acute) Condition: Guarded - Instructions Diet, Activity, Other Instructions: david feeds for 90 days or more chemo in am [facility] oxygen 3 liters pe nc if o2 less 90suction apparatus to be delivered tody vns they will call for his food f/u w me x 1wk no steroids uagmentin 875 bid x 5 days cont all tx as is Disposition: HOME - Home Medications Comprehensive Discharge Medication List: Ambulatory Orders Furosemide 40 mg PO BID 04/20/17 Atorvastatin Ca [Lipitor] 40 mg PO HS 05/17/17 Aspirin [ASA -] 81 mg PO DAILY tab.chew 05/21/17 Sertraline HCl [Zoloft -] 50 mg PO DAILY tablet 05/21/17 Levothyroxine [Synthroid -] 25 mcg PO DAILY 01/05/19 Metoprolol Tartrate [Lopressor -] 50 mg PO BID 01/05/19
[2019-01-11] MEDS: MOMETASONE FUROATE 110 MCG/IH INHALER IH SCH ×2 (10:31→22:26)
[2019-01-11] MEDS: UMECLIDINIUM/VILANTEROL (ANORO) 62.5/25 MCG INHALER IH SCH (10:31)
[2019-01-11] MEDS: POLYETHYLENE GLYCOL 3350 119 GM BTL PO SCH ×2 (10:32→10:55)
--- NOTE | 2019-01-11 12:00 | PN ---
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 Family refusing hospital bed. HOB elevated during and after PEG feedings to minimize risk of retrograde aspiration. Pt /family education provided. Continue swallowing tx at [facility].
--- NOTE | 2019-01-11 17:27 | PN ---
Progress Note (short form) - Note Progress Note: 78 year old male admitted with CHF, known case of CAD/s/p CABG, LV systolic dysfunction. Denies any further shortness of breath, chest pain or discomfort. Patient was found to have elevated sodium level and is currently receiving dextrose and water. Active Medications Albuterol Sulfate (Ventolin Hfa Inhaler -) 2 puff IH Q4H PRN PRN Reason: SHORT OF BREATH/WHEEZING Mometasone Furoate (Asmanex 110mcg -) 1 puff IH BID [facility] Last Admin: 01/11/19 10:31 Dose: 1 puff Pantoprazole Sodium (Protonix Packets For Oral Suspension -) 40 mg PO DAILY [facility] Last Admin: 01/11/19 10:29 Dose: 40 mg Polyethylene Glycol (Miralax (For Daily Use) -) 17 gm PO DAILY [facility] Last Admin: 01/11/19 10:55 Dose: Not Given Propranolol HCl (Inderal -) 10 mg PEG TID [facility] Last Admin: 01/11/19 15:18 Dose: 10 mg Sertraline HCl (Zoloft -) 50 mg PO DAILY [facility] Last Admin: 01/11/19 10:29 Dose: 50 mg Umeclidinium/Vilanterol (Anoro Ellipta 62.5-25 Mcg Inh) 1 puff IH DAILY [facility] Last Admin: 01/11/19 10:31 Dose: 1 puff Last Vital Signs Temp Pulse Resp BP Pulse Ox 97.6 F 56 L 20 146/79 95 01/11/19 10:00 01/11/19 10:00 01/11/19 10:00 01/11/19 10:00 01/11/19 09:00 Neck: Supple, no JVD, negative HJR, carotids were equal and upstrokes were normal, no thyromegaly appreciated. Heart: PMI was in the 5th intercostal space, no heaves or thrills, S1 and S2 were normal. No murmurs or gallops were appreciated. Lungs: Clear on auscultation bilaterally. Abdomen: Soft, nontender, no hepatosplenomegaly appreciated, and no palpable masses were felt. Bowel sounds were present, no bruits were heard. Extremities: No calf tenderness or dependent edema. Pulses were equal. CBC, BMP 01/10/19 06:24 01/10/19 06:24 Impressions: 1. Congestive Heart Failure, clinically appears resolved. 2. Left ventricular systolic. 3. CAD/CABG. 4. History of hypercholesterimia. 5. History of carcinoma of the tongue. 6. Pre-renal azotemia. 7. Anemia. Recommendations: 1. Lipid profile. 2. In view of coronary artery disease consider addition of statin. 3. Followup BMP. Ward Swain
[2019-01-11] MEDS ORDERED: AMOX TR/POTASSIUM CLAVULANATE 250 MG/5 ML BOTTLE PEG ONE (19:00)
[2019-01-11] MEDS: ALBUTEROL SO4 8 GM HFA INHALER IH PRN (21:10)
[2019-01-12] MEDS ORDERED: ZOLPIDEM TARTRATE 5 MG TABLET PEG PRN (02:07)
[2019-01-12] MEDS ORDERED: ZOLPIDEM TARTRATE 5 MG TABLET PO PRN (02:07)
[2019-01-12] MEDS: ALBUTEROL SO4 8 GM HFA INHALER IH PRN (02:27)
[2019-01-12] MEDS: PANTOPRAZOLE SOD 40 MG SUSPENSION PACKET PO SCH (10:11)
[2019-01-12] MEDS: SERTRALINE HCL 50 MG TABLET (FP) PO SCH (10:11)
[2019-01-12] MEDS: UMECLIDINIUM/VILANTEROL (ANORO) 62.5/25 MCG INHALER IH SCH (10:13)
[2019-01-12] MEDS: MOMETASONE FUROATE 110 MCG/IH INHALER IH SCH (10:13)
[2019-01-12] MEDS: POLYETHYLENE GLYCOL 3350 119 GM BTL PO SCH (10:13)
[2019-01-12 12:47] VITALS: PULSE 110
[2019-01-12 13:02] VITALS: BP 135/82; TEMP 97.1
== END 2019-01-12 14:18 | disposition home or self-care (01) | DRG 177 ==
LOC: JER 15:57 → JERBED 19:11 → J5S 01-06 16:10 → J7W 01-09 19:28
PROVIDERS: ADMIT Internal Medicine; ATTEND Family Medicine
PROC: 0DH63UZ Insertion of Feeding Device into Stomach, Percutaneous Approach (ICD-10-PCS; principal; 2019-01-09 07:30)
DX: J69.0 Pneumonitis due to inhalation of food and vomit (principal); I50.23 Acute on chronic systolic (congestive) heart failure; Z68.1 Body mass index [BMI] 19.9 or less, adult; R64 Cachexia; I48.92 Unspecified atrial flutter; I11.0 Hypertensive heart disease with heart failure; R47.1 Dysarthria and anarthria; Z85.21 Personal history of malignant neoplasm of larynx; Z95.1 Presence of aortocoronary bypass graft; C01 Malignant neoplasm of base of tongue; I48.91 Unspecified atrial fibrillation; I25.2 Old myocardial infarction; J44.9 Chronic obstructive pulmonary disease, unspecified; Z87.891 Personal history of nicotine dependence; M54.5 Low back pain; I25.10 Atherosclerotic heart disease of native coronary artery without angina pectoris; E86.0 Dehydration; D64.9 Anemia, unspecified; R62.7 Adult failure to thrive
CPT/HCPCS: 36415; 71045-TC-FY; 71046-TC-FY; 71260-TC; 74230-TC-FY; 80048; 80053; 82550; 83735; 83880; 84484; 85025; 85610; 86140; 87040; 87899; 92611-GN; 93005; 93010; 93306-TC; 94640; 94761; 97116-GP; 97161-GP; 99285-25

== ENCOUNTER 2019-08-31 17:39 | Emergency (ER) | payer OTHER ==
--- NOTE | 2019-08-31 18:21 | PDOC ---
Rapid Medical Evaluation Time Seen by Provider: 08/31/19 18:17 Medical Evaluation: Allergies Allergy/AdvReac Type Severity Reaction Status Date / Time No Known Allergies Allergy Verified 01/05/19 16:13 08/31/19 18:19 Pt c/o: gt fell out at hime, hx tongue cancer,no pain pt on brief exam: vss, no bleeding from site Pt ordered for: none Pt to proceed to the ED Discharge Disposition - Diagnosis Dislodged gastrostomy tube - Referrals - Patient Instructions - Post Discharge Activity
[2019-08-31 18:32] VITALS: BP 111/39; PULSE 70; TEMP 98.2
--- NOTE | 2019-08-31 19:05 | PDOC ---
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 The Patient states his G-tube fell out at 4:45 today while his was giving him his usual tube feeds via his G-tube. He states his tract is mature as he had it placed 6 months ago. He reports that it has fallen out many times and he is usually able to place it back in on his own. Today, however, he was unable to re-insert the tube by himself so he came to the ER to have the tube replaced. Denies fevers, chills, infections, nausea or vomiting. Denies diarhhea, constipation. Denies recent travel. PCP: Clifford Maloney PSH: CABG, G-tube Social Hx: Denies smoking, drinking, or other substance abuse. helps him out with ADL Allergies: NKA, NKDA Past History - Past Medical History Allergies/Adverse Reactions: Allergies Allergy/AdvReac Type Severity Reaction Status Date / Time No Known Allergies Allergy Verified 01/05/19 16:13 Home Medications: Ambulatory Orders Atorvastatin Ca [Lipitor] 40 mg PO HS 05/17/17 Aspirin [ASA -] 81 mg PO DAILY tab.chew 05/21/17 Sertraline HCl [Zoloft -] 50 mg PO DAILY tablet 05/21/17 Levothyroxine [Synthroid -] 25 mcg PO DAILY 01/05/19 Bumetanide 4 mg PO BID 08/31/19 Carvedilol 3.125 mg PO BID 08/31/19 Eplerenone 25 mg PO DAILY 08/31/19 Potassium Chloride [Klor-Con 10] 10 meq PO DAILY 08/31/19 Sacubitril/Valsartan [Entresto 24 mg-26 mg Tablet] 1 each PO BID 08/31/19 Anemia: No Asthma: No Cancer: Yes (laryngeal carcinoma s/p RT) Cardiac Disorders: Yes (hypertensive cardiovascular dz, cardiomegaly, afib) 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, resolved left sided hemiparesis) COPD: Yes CHF: No DVT: No Disorders: Yes (CRF) HTN: Yes Hypercholesterolemia: Yes - Surgical History Cardiac Surgery: Yes (cabg) Orthopedic Surgery: Yes (shoulder sx) - Psycho Social/Smoking Cessation Hx Smoking History: Never smoked Have you smoked in the past 12 months: No If you are a former smoker, when did you quit?: 3 YEARS AGO Information on smoking cessation initiated: No Hx Alcohol Use: No Drug/Substance Use Hx: No Substance Use Type: None Hx Substance Use Treatment: No Review of Systems - Review of Systems Able to Perform ROS?: Yes Comments:: CONSTITUTIONAL: Absent: fever, no chills, no fatigue EYES: Absent: visual changes ENT: Absent: ear pain, no sore throat CARDIOVASCULAR: Absent: chest pain, no palpitations RESPIRATORY: Absent: cough, no SOB GI: Absent: abdominal pain, no nausea, no vomiting, no constipation, no diarrhea GENITOURINARY: Absent: dysuria, no frequency, no hematuria MUSKULOSKELETAL: Absent: back pain, no arthralgia, no myalgia SKIN: Absent: rash NEURO: Absent: headache *Physical Exam - Vital Signs Last Vital Signs Temp Pulse Resp BP Pulse Ox 98.2 F 70 17 111/39 L 96 08/31/19 18:15 08/31/19 18:15 08/31/19 18:15 08/31/19 18:15 08/31/19 18:15 - Physical Exam GENERAL: Well-appearing, well-nourished. No apparent distress. HEENT: Normocephalic, atraumatic. PERRL, EOM intact. CARDIOVASCULAR: Normal S1, S2. Regular rate and rhythm. PULMONARY: No evidence of respiratory distress. Lungs clear to auscultation bilaterally. No wheezing, rales or rhonchi. ABDOMEN: There is a stoma for his G-tube. Surrounding area is not erythematous or TTP. EXTREMITIES: Normal ROM in all four extremities. No gross deformities. SKIN: Warm, dry. No rash NEUROLOGICAL: No focal neurological deficits. 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 The Patient states his G-tube fell out at 4:45 today while his was giving him his usual tube feeds via his G-tube. He states his tract is mature as he had it placed 6 months ago. He reports that it has fallen out many times and he is usually able to place it back in on his own. Today, however, he was unable to re-insert the tube by himself so he came to the ER to have the tube replaced. Vital Signs Temp Pulse Resp BP Pulse Ox 98.2 F 70 17 111/39 L 96 08/31/19 18:15 08/31/19 18:15 08/31/19 18:15 08/31/19 18:15 08/31/19 18:15 DDx IBNLT: G-tube failure, stoma occlusion, cellulitis Plan: G-tube replacement, XR for confirmation, GI FU - Patient's G-tube was a 20 central african - New 20 central african placed by me - XR confirms no extravasation - Spoke with Dr. Gustafson to conifrm Xr is satisfactory Dispo: Home with Gi FU Discharge - Discharge Information Problems reviewed: Yes Clinical Impression/Diagnosis: Dislodged gastrostomy tube Condition: Improved Disposition: HOME - Admission No - Follow up/Referral Referrals: Clifford Maloney, ION [Primary Care Provider] - - Patient Discharge Instructions Patient Printed Discharge Instructions: How to Care for Your PEG Tube, DI for Feeding Tube Exchange Additional Instructions: Please follow up with your stomach doctor in the next week to make sure your G- tube is properly in place and functioning correctly. Come back to the ER immediately with any new or worsening concerns. Thank you for coming to the [facility] ER. We hope you feel better soon! Print Language: CHADIAN - Post Discharge Activity
--- NOTE | 2019-08-31 19:31 | PDOC ---
Attending Attestation - Resident Resident Name: Tejas Walters - ED Attending Attestation I have performed the following: I have examined & evaluated the patient, The case was reviewed & discussed with the resident, I agree w/resident's findings & plan - HPI HPI: 08/31/19 19:28 Pt had g tube accidentally removed. Came to ER for replacement. - Physicial Exam PE: 08/31/19 19:29 Agree with resident exam/. Pt is with family and ambulating about the ER - Medical Decision Making 08/31/19 19:31 Home with PEG tube successfully replaced. KUB shows contrast in the intestines d emonstrating good placement of the feeding tube
== END 2019-08-31 19:30 | disposition home or self-care (01) ==
LOC: JER 17:39
PROC: 0D20XUZ Change Feeding Device in Upper Intestinal Tract, External Approach (ICD-10-PCS; principal; 2019-08-31)
DX: Z43.1 Encounter for attention to gastrostomy (principal); I48.91 Unspecified atrial fibrillation; I10 Essential (primary) hypertension; J44.9 Chronic obstructive pulmonary disease, unspecified; Z85.21 Personal history of malignant neoplasm of larynx; I50.9 Heart failure, unspecified
CPT/HCPCS: 43762; 74018-TC-FY; 99284-25

== ENCOUNTER 2019-09-01 09:10 | Emergency (ER) | payer OTHER ==
[2019-09-01 09:20] VITALS: BP 112/35; PULSE 69; TEMP 98.3; BMI 18.2
[2019-09-01] MEDS ORDERED: IOHEXOL 180 MG/1 ML ML IT ONE (09:36)
--- NOTE | 2019-09-01 09:57 | PDOC ---
Documentation entered by Geovanna Chester SCRIBE, acting as scribe for Maddy Calderón DO. Maddy Calderón DO: This documentation has been prepared by the rand, Geovanna Chester SCRIBE, under my direction and personally reviewed by me in its entirety. I confirm that the documentation accurately reflects all work, treatment, procedures, and medical decision making performed by me. 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 As per patient, he eports the G-tube fell out yesterday, attempted to place it back, and reports the tube falling out again at 8am this morning after taking his medication prompting him to the ER. Patient voices no complaints. G-tube was replaced with ease. He denies any recent fevers, chills, headache or dizziness. He denies any recent nausea, vomit, diarrhea or constipation. He denies any recent chest pain or shortness of breath. He denies any recent dysuria, frequency, urgency or hematuria. PCP: Clifford Maloney Allergies: NKA, NKDA Past History - Past Medical History Allergies/Adverse Reactions: Allergies Allergy/AdvReac Type Severity Reaction Status Date / Time No Known Allergies Allergy Verified 09/01/19 09:14 Home Medications: Ambulatory Orders Atorvastatin Ca [Lipitor] 40 mg PO HS 05/17/17 Aspirin [ASA -] 81 mg PO DAILY tab.chew 05/21/17 Sertraline HCl [Zoloft -] 50 mg PO DAILY tablet 05/21/17 Levothyroxine [Synthroid -] 25 mcg PO DAILY 01/05/19 Bumetanide 4 mg PO BID 08/31/19 Carvedilol 3.125 mg PO BID 08/31/19 Eplerenone 25 mg PO DAILY 08/31/19 Potassium Chloride [Klor-Con 10] 10 meq PO DAILY 08/31/19 Sacubitril/Valsartan [Entresto 24 mg-26 mg Tablet] 1 each PO BID 08/31/19 Anemia: No Asthma: No Cancer: Yes (laryngeal carcinoma s/p RT) Cardiac Disorders: Yes (hypertensive cardiovascular dz, cardiomegaly, afib) 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, resolved left sided hemiparesis) COPD: Yes CHF: No DVT: No Disorders: Yes (CRF) HTN: Yes Hypercholesterolemia: Yes - Surgical History Cardiac Surgery: Yes (cabg) Orthopedic Surgery: Yes (shoulder sx) - Psycho Social/Smoking Cessation Hx Smoking History: Never smoked Have you smoked in the past 12 months: No If you are a former smoker, when did you quit?: 3 YEARS AGO Hx Alcohol Use: No Drug/Substance Use Hx: No Substance Use Type: None Hx Substance Use Treatment: No Review of Systems - Review of Systems Able to Perform ROS?: Yes Comments:: 09/01/19 09:53 GENERAL/CONSTITUTIONAL: No fever or chills. No weakness. HEAD, EYES, EARS, NOSE AND THROAT: No change in vision. No ear pain or discharge. No sore throat. GASTROINTESTINAL: No nausea, vomiting, diarrhea or constipation. GENITOURINARY: No dysuria, frequency, or change in urination. CARDIOVASCULAR: No chest pain or shortness of breath. RESPIRATORY: No cough, wheezing, or hemoptysis. ABDOMEN:+G-tube problem. MUSCULOSKELETAL: No joint or muscle swelling or pain. No neck or back pain. SKIN: No rash NEUROLOGIC: No headache, vertigo, loss of consciousness, or change in strength/sensation. ENDOCRINE: No increased thirst. No abnormal weight change. HEMATOLOGIC/LYMPHATIC: No anemia, easy bleeding, or history of blood clots. ALLERGIC/IMMUNOLOGIC: No hives or skin allergy. *Physical Exam - Vital Signs Last Vital Signs Temp Pulse Resp BP Pulse Ox 98.3 F 69 18 112/35 L 98 09/01/19 09:15 09/01/19 09:15 09/01/19 09:15 09/01/19 09:15 09/01/19 09:15 - Physical Exam 09/01/19 09:52 Constitutional:+Cachetic. Awake, alert, oriented. No acute distress. Head: Normocephalic. Atraumatic Eyes: PERRL. EOMI. Conjunctivae are not pale. ENT: +Dry mucous membrane. Posterior pharynx without exudates or erythema. Uvula midline. Neck: Supple. Full ROM. No lymphadenopathy. Cardiovascular: Regular rate. Regular rhythm. S1, S2 regular. Distal pulses are 2+ and symmetric. Pulmonary/Chest: No evidence of respiratory distress. Clear to auscultation bilaterally No wheezing, rales or rhonchi. Abdominal: +No bleeding at site. Soft and non-distended. There is no tenderness. No rebound, guarding or rigidity. No organomegaly. No palpable masses. Good bowel sounds. Back: No CVA tenderness. Musculoskeletal: No edema. No cyanosis. No clubbing. Full range of motion in all extremities. Nocalf tenderness. Radial/pedal pulses are intact and 2+ bilaterally Skin: Skin is warm and dry. No petechiae. No purpura. Neurological:+slurred speech secondary to tongue CA. Alert and oriented to person, place, and time. Cranial nerves II-XII are grossly intact. Strength is grossly symmetric. No sensory deficits. Psychiatric: Good eye contact. Normal interaction, affect and behavior. Medical Decision Making - Medical Decision Making 09/01/19 09:54 a/p: 79yo male with G tube secondary to tongue ca - s/p resection at [facility] -pt states g tube fell out last night, was replaced in the ER, then around 8am this morning when he went to take his meds the g tube fell out again -20F g tube at the bedside -site clear/no blood drainage, scant amount of gastric contents draining -20f g tube replaced with ease- pt tolerated the procedure well -xray ordered to confirm placement with omnipaque -no other systemic complaints 09/01/19 10:01 xray taken does not show omnipaque - will repeat with omnipaque 09/01/19 10:[address] stable for dc to home Discharge - Discharge Information Problems reviewed: Yes Clinical Impression/Diagnosis: Dislodged gastrostomy tube Condition: Stable Disposition: HOME - Admission No - Follow up/Referral Referrals: Clifford Maloney MD [Primary Care Provider] - - Patient Discharge Instructions Patient Printed Discharge Instructions: How to Care for Your PEG Tube, DI for Feeding Tube Exchange Additional Instructions: Please follow up with your PMD in 1-2 days. You may use your g-tube when you return home. Please take all your medications when you return home. Please return to the ER with any further concerns or complaints. - Post Discharge Activity
== END 2019-09-01 10:28 | disposition home or self-care (01) ==
LOC: JER 09:10
PROC: 0DH67UZ Insertion of Feeding Device into Stomach, Via Natural or Artificial Opening (ICD-10-PCS; principal; 2019-09-01)
DX: Z43.1 Encounter for attention to gastrostomy (principal); I48.91 Unspecified atrial fibrillation; I10 Essential (primary) hypertension; J44.9 Chronic obstructive pulmonary disease, unspecified; Z85.21 Personal history of malignant neoplasm of larynx; I25.2 Old myocardial infarction; E78.5 Hyperlipidemia, unspecified; Z87.891 Personal history of nicotine dependence; I51.9 Heart disease, unspecified
CPT/HCPCS: 74018-TC-FY; 99283-25

== ENCOUNTER 2020-02-03 12:08 | Emergency (ER) | payer OTHER ==
[2020-02-03 12:21] VITALS: BMI 19.5
--- NOTE | 2020-02-03 12:25 | PDOC ---
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 Patient denies abdominal pain, flank pain, nausea, vomiting and has no other complaints. tube placed by Dr. Milner last year. Patient denies HOPKINS, vision change, palpitations, cough, wheezing, orthopena, PND, leg swelling/pain, N/V, F,C, CP, SOB, urinary complaints, hematuria, BPR, , diarrhea, constipation, lightheadedness, weakness, sensory changes. PMHx: as noted above ROS: as noted SHx: former smoker Allergies: NKDA PCP: Clifford Maloney ROS: GENERAL/CONSTITUTIONAL: No fever or chills. No weakness. HEAD, EYES, EARS, NOSE AND THROAT: No change in vision. No ear pain or discharge. No sore throat. CARDIOVASCULAR: No chest pain or shortness of breath RESPIRATORY: No cough, wheezing, or hemoptysis. GASTROINTESTINAL: No nausea, vomiting, diarrhea or constipation. GENITOURINARY: No dysuria, frequency, or change in urination. MUSCULOSKELETAL: No joint or muscle swelling or pain. No neck or back pain. SKIN: No rash NEUROLOGIC: No headache, vertigo, loss of consciousness, or change in strength/sensation. ENDOCRINE: No increased thirst. No abnormal weight change HEMATOLOGIC/LYMPHATIC: No anemia, easy bleeding, or history of blood clots. ALLERGIC/IMMUNOLOGIC: No hives or skin allergy. PE: GENERAL: Awake, alert, and fully oriented, in no acute distress HEAD: No signs of trauma, normocephalic, atraumatic EYES: PERRLA, EOMI, sclera anicteric, conjunctiva clear ENT: Auricles normal inspection, hearing grossly normal, nares patent, oropharynx clear without exudates. Moist mucosa NECK: Normal ROM, supple, no lymphadenopathy, JVD, or masses LUNGS: No distress, speaks full sentences, clear to auscultation bilaterally HEART: Regular rate and rhythm, normal S1 and S2, no murmurs, rubs or gallops, peripheral pulses normal and equal bilaterally. ABDOMEN: Soft, nontender, normoactive bowel sounds. No guarding, no rebound. No masses. stoma above umbilicus EXTREMITIES : Normal inspection, Normal range of motion, no edema. No clubbing or cyanosis NEUROLOGICAL: Cranial nerves II through XII grossly intact. Normal speech, normal gait, no focal sensorimotor deficits SKIN: Warm, Dry, normal turgor, no rashes or lesions noted 02/03/20 13:31 Past History - Medical History Allergies/Adverse Reactions: Allergies Allergy/AdvReac Type Severity Reaction Status Date / Time No Known Allergies Allergy Verified 02/03/20 12:16 Home Medications: Ambulatory Orders Atorvastatin Ca [Lipitor] 40 mg PO HS 05/17/17 Aspirin [ASA -] 81 mg PO DAILY tab.chew 05/21/17 Sertraline HCl [Zoloft -] 50 mg PO DAILY tablet 05/21/17 Levothyroxine [Synthroid -] 25 mcg PO DAILY 01/05/19 Bumetanide 2 mg PO BID 08/31/19 Carvedilol 3.125 mg PO BID 08/31/19 Eplerenone 25 mg PO DAILY 08/31/19 Sacubitril/Valsartan [Entresto 24 mg-26 mg Tablet] 1 each PO BID 08/31/19 Anemia: No Asthma: No Cancer: Yes (laryngeal carcinoma s/p RT) Cardiac Disorders: Yes (hypertensive cardiovascular dz, cardiomegaly, afib) 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, resolved left sided hemiparesis) COPD: Yes CHF: No DVT: No Disorders: Yes (CRF) HTN: Yes Hypercholesterolemia: Yes - Surgical History Cardiac Surgery: Yes (cabg) Orthopedic Surgery: Yes (shoulder sx) - Immunization History Immunization Up to Date: Yes - Psycho-Social/Smoking History Smoking History: Never smoked Have you smoked in the past 12 months: No If you are a former smoker, when did you quit?: 3 YEARS AGO - Substance Abuse Hx (Audit-C & DAST Scrn) How often the patient has a drink containing alcohol: Never Score: In Men: 4 or > Positive; In Women: 3 or > Positive: 0 Screen Result (Pos requires Nsg. 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 g-tube replacement attempted with 20 fr(as patient had previously) and 18 unsuccessful. unable to pass through stoma blood oozing out during attempts. [facility] contacted. 02/03/20 14:11 peg tube placed by dr. watkins, placement confirmed with x-ray Discharge - Discharge Information Problems reviewed: Yes Clinical Impression/Diagnosis: Gastrostomy tube in place Condition: Stable Disposition: HOME - Admission No - Follow up/Referral Referrals: Clifford Maloney MD [Primary Care Provider] - - Patient Discharge Instructions Patient Printed Discharge Instructions: How to Care for Your PEG Tube Additional Instructions: Discussed results and outcome of testing with the patient. The patient was advised to follow up with their primary care doctor within the next 24-48 hours and return to the Emergency Department for worsening symptoms or any other concerns. - Post Discharge Activity
--- NOTE | 2020-02-03 13:47 | PDOC ---
Documentation entered by Ivet Otoole SCRIBE, acting as scribe for Janice Roach MD. Janice Roach MD: This documentation has been prepared by the Xiang gordillo Ana, SCRIBE, under my direction and personally reviewed by me in its entirety. I confirm that the documentation accurately reflects all work, treatment, procedures, and medical decision making performed by me. 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 Patient stated he was taking a shower earlier this morning when his G-tube fell out. Patient denies: weakness, headache, any vision changes, nausea, vomiting, SOB, coughing, wheezing, palpitations, abdominal pain, flank pain, any urinary is sues, diarrhea, constipation, or any other related symptoms. Allergies: NKDA - Physicial Exam PE: 02/03/20 13:42 G tube opening has some surrounding granulation tissue. No surrounding erythema or tenderness. + resistance to passage of 20 and 18 qatari g tube despite gentle pressure. - Medical Decision Making 02/03/20 13:44 Pt presents to the ED after his G tube has fallen out. Denies other complaints. Resident and myself unable to pass the tube despite rotation and gentle pressure. Dr. Ricks called and he has come to the bedside to replace the tube. Tube now replaced. Will check G tube placement with gastrograffin study. Discharge - Discharge Information Problems reviewed: Yes Clinical Impression/Diagnosis: Gastrostomy tube in place Condition: Stable Disposition: HOME - Follow up/Referral Referrals: Clifford Maloney MD [Primary Care Provider] - - Patient Discharge Instructions Patient Printed Discharge Instructions: How to Care for Your PEG Tube Additional Instructions: Discussed results and outcome of testing with the patient. The patient was advis ed to follow up with their primary care doctor within the next 24-48 hours and return to the Emergency Department for worsening symptoms or any other concerns. - Post Discharge Activity
--- NOTE | 2020-02-03 14:21 | CON.GI ---
Consult Consult Specialty:: Gastroenterology ( covering Dr Milner) Referred by:: Dr Rossi Reason for Consultation:: Avulsed PEG - History of Present Illness Chief Complaint: Avulsed PEG History of Present Illness: 79M comes to the ER after his PEG fell out. He had it placed by Dr Milner in 01/12 while undergoing chemotherapy and RT for stage III laryngeal cancer at [facility]. It fell out 2 hours ago. - History Source History Provided By: Patient, Significant Other Limitations to Obtaining History: No Limitations - Past Medical History Cardio/Vascular: Yes: AFIB, CAD (s/p triple vessel CABG at [facility]), CHF (EF < 30%), HTN, ME, Other (has defibrillator and PPM) Pulmonary: Yes: COPD, Pneumonia Gastrointestinal: Yes: Other (PEG tube 01/12) Heme/Onc: Yes: Other (stage III laryngeal cancer s/p RT and chemotherapy at 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 History of Recent Travel: No Home Medications - Allergies Allergies/Adverse Reactions: Allergies Allergy/AdvReac Type Severity Reaction Status Date / Time No Known Allergies Allergy Verified 02/03/20 12:16 - Home Medications Home Medications: Ambulatory Orders Atorvastatin Ca [Lipitor] 40 mg PO HS 05/17/17 Aspirin [ASA -] 81 mg PO DAILY tab.chew 05/21/17 Sertraline HCl [Zoloft -] 50 mg PO DAILY tablet 05/21/17 Levothyroxine [Synthroid -] 25 mcg PO DAILY 01/05/19 Bumetanide 2 mg PO BID 08/31/19 Carvedilol 3.125 mg PO BID 08/31/19 Eplerenone 25 mg PO DAILY 08/31/19 Sacubitril/Valsartan [Entresto 24 mg-26 mg Tablet] 1 each PO BID 08/31/19 Review of Systems - Review of Systems Constitutional: reports: Unintentional Wgt. Loss, Weakness Eyes: reports: No Symptoms HENT: reports: Other (dry mouth and RT/chemo mucositis) Neck: reports: No Symptoms Respiratory: reports: No Symptoms Gastrointestinal: reports: Other (avulsed PEG) Musculoskeletal: reports: Back Pain Physical Exam-GI Vital Signs: Vital Signs Temperature 98.2 F 02/03/20 12:11 Pulse Rate 63 02/03/20 12:11 Respiratory Rate 18 02/03/20 12:11 Blood Pressure 136/59 L 02/03/20 12:11 O2 Sat by Pulse Oximetry (%) 99 02/03/20 12:11 Constitutional: Yes: Calm Eyes: Yes: Conjunctiva Clear HENT: Yes: Atraumatic Neck: Yes: Supple Cardiovascular: Yes: Regular Rate and Rhythm (with left sided PPM/defibrillator), Other (healed median sternotomy incision) Respiratory: Yes: CTA Bilaterally Gastrointestinal Inspection: Yes: Other (mature LUQ PEG fistula) ...Auscultate: Yes: Normoactive Bowel Sounds ...Palpate: Yes: Soft, Other (nontender) Problem List - Problems (1) Gastrojejunostomy tube dislodgement Code(s): T85.528A - DISPLACEMENT OF GASTROINTESTINAL PROSTH DEV/GRFT, INIT (3) Afib Code(s): I48.91 - UNSPECIFIED ATRIAL FIBRILLATION (4) CHF (congestive heart failure) Code(s): I50.9 - HEART FAILURE, UNSPECIFIED Qualifiers: Qualified Code(s): I50.41 - Acute combined systolic (congestive) and diastolic (congestive) heart failure (5) COPD (chronic obstructive pulmonary disease) Code(s): J44.9 - CHRONIC OBSTRUCTIVE PULMONARY DISEASE, UNSPECIFIED Qualifiers: COPD type: COPD with acute exacerbation Qualified Code(s): J44.1 - Chronic obstructive pulmonary disease with (acute) exacerbation (6) Dislodged gastrostomy tube Code(s): Z43.1 - ENCOUNTER FOR ATTENTION TO GASTROSTOMY (7) Rash of back Code(s): R21 - RASH AND OTHER NONSPECIFIC SKIN ERUPTION (8) S/P CABG (coronary artery bypass graft) Code(s): Z95.1 - PRESENCE OF AORTOCORONARY BYPASS GRAFT Assessment/Plan Impression: Dislodged PEG. After the mature fistula was dilated a 20Fr replacement gastrostomy tube was inserted and the internal balloon was inflated with 10cc of sterile saline Plan: Get gastrograffin via G tube UGI to confirm intragastric location before discharging Discussed with Dr Rossi
[2020-02-03 14:49] VITALS: BP 122/76; PULSE 62; TEMP 97.8
== END 2020-02-03 14:15 | disposition home or self-care (01) ==
LOC: JER 12:08
DX: K94.23 Gastrostomy malfunction (principal)
CPT/HCPCS: 74018-TC-FY; 99283-25

== ENCOUNTER 2020-08-20 12:39 | Inpatient (IN) | payer OTHER ==
[2020-08-20 15:47] LABS: BASO % 0.8 % (0-2.0); EOS % 6.2 % (0-4.5); HEMATOCRIT 29.5 % (35.4-49); LYMPH % 11.5 % (8-40); MCH 35.8 pg (25.7-33.7); MCHC 33.9 g/dl (32.0-35.9); MEAN CELL VOLUME 105.5 fl (80-96); MEAN PLT VOLUME 9.7 fl (7.5-11.1); MONO % 11.2 % (3.8-10.2); NEUT % 70.3 % (42.8-82.8); PLATELET COUNT 188 K/MM3 (134-434); RDW 14.3 % (11.9-15.9); WHITE BLOOD COUNT 6.9 K/mm3 (4.0-10.0)
[2020-08-20 15:52] LABS: INR 1.03 (0.83-1.09); PROTHROMBIN TIME (PATIENT) 12.7 SEC (9.7-13.0)
[2020-08-20 15:55] LABS: VENOUS BASE EXCESS 0.6 mmol/L (-2-2); VENOUS PCO2 43.5 mmHg (38-52); VENOUS PH 7.39 (7.310-7.410)
[2020-08-20 16:35] LABS: URINE APPEARANCE CLEAR; URINE BILIRUBIN NEGATIVE (NEGATIVE); URINE COLOR YELLOW; URINE GLUCOSE (UA) NEGATIVE (NEGATIVE); URINE KETONE NEGATIVE (NEGATIVE); URINE LEUK ESTERASE 2+ (NEGATIVE); URINE NITRITE NEGATIVE (NEGATIVE); URINE PROTEIN 3+ (NEGATIVE); URINE UROBILINOGEN 0.2 mg/dL (0.2-1.0)
[2020-08-20 16:40] LABS: CHLORIDE 100 mmol/L (98-107); POTASSIUM 4.1 mmol/L (3.5-5.1); SODIUM 137 mmol/L (136-145)
[2020-08-20 16:43] LABS: ALBUMIN 3.4 g/dl (3.4-5.0); ANION GAP 7 MMOL/L (8-16); BLOOD UREA NITROGEN 46.2 mg/dL (7-18); CALCIUM 8.6 mg/dL (8.5-10.1); CO2 30 mmol/L (21-32); GLUCOSE,RANDOM 100 mg/dL (74-106)
[2020-08-20 16:46] LABS: BILIRUBIN,DIRECT 0.1 mg/dL (0.0-0.2); CREATININE 1.4 mg/dL (0.55-1.3); SGOT/AST 29 U/L (15-37); SGPT/ALT 43 U/L (13-61)
[2020-08-20 16:48] LABS: BILIRUBIN,TOTAL 0.4 mg/dL (0.2-1); TOT PROT 6.7 g/dl (6.4-8.2)
[2020-08-20 16:49] LABS: ALK PHOS 70 U/L (45-117); LDH 195 U/L (87-246)
[2020-08-20] MEDS ORDERED: FUROSEMIDE 40 MG/4 ML INJECTABLE VIAL IVPUSH ONE (17:13)
[2020-08-20] MEDS ORDERED: FUROSEMIDE 40 MG/4 ML INJECTABLE VIAL ONE (17:27)
[2020-08-20] MEDS ORDERED: ALBUTEROL SO4 HFA INHALER IH PRN (19:19)
[2020-08-20] MEDS ORDERED: SACUBITRIL/VALSARTAN 24 MG-26 MG TABLET PO SCH (22:00)
[2020-08-20] MEDS ORDERED: ATORVASTATIN CA 40 MG TABLET (FP) PO SCH (22:00)
[2020-08-20] MEDS ORDERED: CARVEDILOL 6.25 MG TABLET (FP) PO SCH (22:00)
[2020-08-20] MEDS ORDERED: GLYCOPYRROLATE 1 MG TABLET PO SCH (22:00)
[2020-08-20] MEDS: BUDESONIDE/FORMETEROL FUMARATE 160/4.5 mcg INHALER IH SCH (22:08)
[2020-08-21] MEDS ORDERED: BUMETANIDE 1 MG TABLET PO SCH (06:00)
[2020-08-21 07:00] LABS: HEMATOCRIT 29.4 % (35.4-49); HEMOGLOBIN 9.9 GM/dL (11.7-16.9); MCH 35.8 pg (25.7-33.7); MCHC 33.6 g/dl (32.0-35.9); MEAN CELL VOLUME 106.3 fl (80-96); MEAN PLT VOLUME 9.6 fl (7.5-11.1); PLATELET COUNT 168 K/MM3 (134-434); RBC 2.76 M/mm3 (4.00-5.60); WHITE BLOOD COUNT 7.4 K/mm3 (4.0-10.0)
[2020-08-21] MEDS ORDERED: LEVOTHYROXINE NA 25 MCG TABLET (FP) PO SCH (07:00)
[2020-08-21 07:46] LABS: POTASSIUM 3.5 mmol/L (3.5-5.1)
[2020-08-21 08:16] LABS: ALBUMIN 3.5 g/dl (3.4-5.0); BLOOD UREA NITROGEN 40.8 mg/dL (7-18); CALCIUM 8.5 mg/dL (8.5-10.1)
[2020-08-21 08:19] LABS: CREATININE 1.3 mg/dL (0.55-1.3)
[2020-08-21 08:21] LABS: TOT PROT 6.5 g/dl (6.4-8.2)
[2020-08-21 08:23] LABS: BILIRUBIN,TOTAL 0.8 mg/dL (0.2-1)
[2020-08-21] MEDS ORDERED: PT OWN MED DRAWER 7, Y5N ONE ×3 (08:51→11:59)
[2020-08-21] MEDS ORDERED: FUROSEMIDE 40 MG TABLET (FP) PO SCH (10:00)
[2020-08-21] MEDS ORDERED: EPLERENONE 25 MG TABLET PO SCH (10:00)
[2020-08-21] MEDS ORDERED: FUROSEMIDE 20 MG TABLET (FP) PO SCH (10:00)
[2020-08-21] MEDS ORDERED: FUROSEMIDE 20 MG TABLET (FP) PEG SCH (10:00)
[2020-08-21] MEDS: CARVEDILOL 6.25 MG TABLET (FP) PEG SCH (11:43)
[2020-08-21] MEDS: SERTRALINE HCL 50 MG TABLET (FP) PEG SCH (11:44)
[2020-08-21] MEDS: FERROUS SO4 300 MG/5 ML ORAL SOLN UNIT DOSE CUPS PEG SCH (11:45)
[2020-08-21] MEDS: ASPIRIN 81 MG CHEWABLE TABLETS PEG SCH (11:45)
[2020-08-21] MEDS: GLYCOPYRROLATE 1 MG TABLET PEG SCH ×2 (11:46→21:08)
[2020-08-21] MEDS: SACUBITRIL/VALSARTAN 24 MG-26 MG TABLET PEG SCH ×2 (11:46→21:08)
[2020-08-21] MEDS: ACETAMINOPHEN 325 MG TABLET (FP) NR PRN (12:00)
[2020-08-21] MEDS: BUDESONIDE/FORMETEROL FUMARATE 160/4.5 mcg INHALER IH SCH ×2 (12:00→21:08)
[2020-08-21] MEDS: FUROSEMIDE 40 MG/4 ML INJECTABLE VIAL IVPUSH SCH (12:06)
[2020-08-21] MEDS: EPLERENONE 25 MG TABLET PO SCH (13:37)
[2020-08-21] MEDS: ATORVASTATIN CA 40 MG TABLET (FP) PEG SCH (21:08)
[2020-08-22] MEDS: LEVOTHYROXINE NA 25 MCG TABLET (FP) PEG SCH (06:32)
[2020-08-22] MEDS ORDERED: PT OWN MED DRAWER 7, Y5N ONE ×3 (06:54→21:43)
[2020-08-22 07:37] LABS: BASO % 0.7 % (0-2.0); EOS % 6.1 % (0-4.5); HEMATOCRIT 28.8 % (35.4-49); HEMOGLOBIN 9.8 GM/dL (11.7-16.9); LYMPH % 10.3 % (8-40); MCH 35.9 pg (25.7-33.7); MEAN CELL VOLUME 105.8 fl (80-96); MEAN PLT VOLUME 9.8 fl (7.5-11.1); MONO % 10.9 % (3.8-10.2); PLATELET COUNT 167 K/MM3 (134-434); RBC 2.72 M/mm3 (4.00-5.60); RDW 13.8 % (11.9-15.9); WHITE BLOOD COUNT 6.5 K/mm3 (4.0-10.0)
[2020-08-22 07:56] LABS: POTASSIUM 3.3 mmol/L (3.5-5.1)
[2020-08-22 08:18] LABS: ALBUMIN 3.4 g/dl (3.4-5.0); BILIRUBIN,TOTAL 0.8 mg/dL (0.2-1); BLOOD UREA NITROGEN 38.8 mg/dL (7-18); CALCIUM 8.8 mg/dL (8.5-10.1); CREATININE 1.2 mg/dL (0.55-1.3); TOT PROT 6.5 g/dl (6.4-8.2)
[2020-08-22] MEDS ORDERED: POTASSIUM CHLORIDE TABS 20 MEQ TABLET.ER (FP) PO ONE (09:21)
[2020-08-22] MEDS: ASPIRIN 81 MG CHEWABLE TABLETS PEG SCH (09:28)
[2020-08-22] MEDS: CARVEDILOL 6.25 MG TABLET (FP) PEG SCH (09:28)
[2020-08-22] MEDS: SERTRALINE HCL 50 MG TABLET (FP) PEG SCH (09:28)
[2020-08-22] MEDS: FUROSEMIDE 40 MG/4 ML INJECTABLE VIAL IVPUSH SCH (09:28)
[2020-08-22] MEDS ORDERED: POTASSIUM CHLORIDE ORAL LIQUID 20 MEQ/15 ML PEG ONE (09:29)
[2020-08-22] MEDS: SACUBITRIL/VALSARTAN 24 MG-26 MG TABLET PEG SCH ×2 (09:32→22:34)
[2020-08-22] MEDS: FERROUS SO4 300 MG/5 ML ORAL SOLN UNIT DOSE CUPS PEG SCH (09:33)
[2020-08-22] MEDS: BUDESONIDE/FORMETEROL FUMARATE 160/4.5 mcg INHALER IH SCH ×2 (09:33→22:34)
[2020-08-22] MEDS: EPLERENONE 25 MG TABLET PO SCH (09:33)
[2020-08-22] MEDS: GLYCOPYRROLATE 1 MG TABLET PEG SCH ×2 (09:33→22:34)
[2020-08-22] MEDS ORDERED: POTASSIUM CHLORIDE ORAL LIQUID 20 MEQ/15 ML GT ONE (13:23)
[2020-08-22] MEDS: ATORVASTATIN CA 40 MG TABLET (FP) PEG SCH (22:34)
[2020-08-23] MEDS: LEVOTHYROXINE NA 25 MCG TABLET (FP) PEG SCH (06:15)
[2020-08-23] MEDS: ACETAMINOPHEN 325 MG TABLET (FP) NR PRN (06:15)
[2020-08-23 08:35] LABS: POTASSIUM 3.5 mmol/L (3.5-5.1)
[2020-08-23 08:36] LABS: BLOOD UREA NITROGEN 40.9 mg/dL (7-18); CALCIUM 8.7 mg/dL (8.5-10.1)
[2020-08-23 08:40] LABS: CREATININE 1.1 mg/dL (0.55-1.3)
[2020-08-23] MEDS ORDERED: PT OWN MED DRAWER 7, Y5N ONE ×2 (09:12→22:33)
[2020-08-23] MEDS: SACUBITRIL/VALSARTAN 24 MG-26 MG TABLET PEG SCH ×2 (11:12→22:57)
[2020-08-23] MEDS: FERROUS SO4 300 MG/5 ML ORAL SOLN UNIT DOSE CUPS PEG SCH (11:12)
[2020-08-23] MEDS: FUROSEMIDE 40 MG/4 ML INJECTABLE VIAL IVPUSH SCH (11:12)
[2020-08-23] MEDS: EPLERENONE 25 MG TABLET PO SCH (11:13)
[2020-08-23] MEDS: ASPIRIN 81 MG CHEWABLE TABLETS PEG SCH (11:13)
[2020-08-23] MEDS: GLYCOPYRROLATE 1 MG TABLET PEG SCH ×2 (11:13→22:58)
[2020-08-23] MEDS: CARVEDILOL 6.25 MG TABLET (FP) PEG SCH (11:13)
[2020-08-23] MEDS: BUDESONIDE/FORMETEROL FUMARATE 160/4.5 mcg INHALER IH SCH ×2 (11:13→22:58)
[2020-08-23] MEDS: SERTRALINE HCL 50 MG TABLET (FP) PEG SCH (11:14)
[2020-08-23] MEDS ORDERED: FUROSEMIDE 40 MG/4 ML INJECTABLE VIAL IVPUSH ONE (16:00)
[2020-08-23] MEDS: ATORVASTATIN CA 40 MG TABLET (FP) PEG SCH (22:57)
[2020-08-23 23:36] LABS: POTASSIUM 3.9 mmol/L (3.5-5.1)
[2020-08-23 23:37] LABS: CALCIUM 8.9 mg/dL (8.5-10.1); MAGNESIUM 2.7 mg/dL (1.8-2.4)
[2020-08-23 23:41] LABS: CREATININE 1.2 mg/dL (0.55-1.3)
[2020-08-24] MEDS: LEVOTHYROXINE NA 25 MCG TABLET (FP) PEG SCH (06:06)
[2020-08-24 07:21] LABS: BASO % 0.8 % (0-2.0); EOS % 6.4 % (0-4.5); HEMATOCRIT 27.1 % (35.4-49); LYMPH % 9.1 % (8-40); MCH 35.3 pg (25.7-33.7); MCHC 33.2 g/dl (32.0-35.9); MEAN CELL VOLUME 106.3 fl (80-96); MEAN PLT VOLUME 9.7 fl (7.5-11.1); MONO % 10.7 % (3.8-10.2); PLATELET COUNT 147 K/MM3 (134-434); RBC 2.55 M/mm3 (4.00-5.60); RDW 13.9 % (11.9-15.9); WHITE BLOOD COUNT 6.3 K/mm3 (4.0-10.0)
[2020-08-24 07:54] LABS: POTASSIUM 3.6 mmol/L (3.5-5.1)
[2020-08-24 07:55] LABS: BLOOD UREA NITROGEN 42.8 mg/dL (7-18); CALCIUM 8.9 mg/dL (8.5-10.1)
[2020-08-24 07:59] LABS: CREATININE 1.1 mg/dL (0.55-1.3)
[2020-08-24] MEDS ORDERED: FUROSEMIDE 40 MG/4 ML INJECTABLE VIAL IVPUSH SCH (10:00)
[2020-08-24] MEDS ORDERED: PT OWN MED DRAWER 7, Y5N ONE ×2 (10:18→22:02)
[2020-08-24] MEDS: SERTRALINE HCL 50 MG TABLET (FP) PEG SCH (10:39)
[2020-08-24] MEDS: GLYCOPYRROLATE 1 MG TABLET PEG SCH ×2 (10:39→23:03)
[2020-08-24] MEDS: SACUBITRIL/VALSARTAN 24 MG-26 MG TABLET PEG SCH ×2 (10:39→23:03)
[2020-08-24] MEDS: EPLERENONE 25 MG TABLET PO SCH (10:39)
[2020-08-24] MEDS: ASPIRIN 81 MG CHEWABLE TABLETS PEG SCH (10:39)
[2020-08-24] MEDS: FERROUS SO4 300 MG/5 ML ORAL SOLN UNIT DOSE CUPS PEG SCH (10:39)
[2020-08-24] MEDS: CARVEDILOL 6.25 MG TABLET (FP) PEG SCH (10:40)
[2020-08-24] MEDS: BUDESONIDE/FORMETEROL FUMARATE 160/4.5 mcg INHALER IH SCH ×2 (10:40→23:03)
[2020-08-24 11:21] LABS: ANISOCYTOSIS 1+; MACROCYTOSIS 1+; PLATELET ESTIMATE NORMAL
[2020-08-24 12:19] LABS: MAGNESIUM 2.6 mg/dL (1.8-2.4)
[2020-08-24] MEDS: ATORVASTATIN CA 40 MG TABLET (FP) PEG SCH (23:03)
[2020-08-25] MEDS: ALBUTEROL SO4 2.5/IPRATROPIUM 0.5 INH SOL 3 ML VIAL.NEB. NEB PRN (02:11)
[2020-08-25 08:55] LABS: POTASSIUM 3.8 mmol/L (3.5-5.1)
[2020-08-25 08:59] LABS: BLOOD UREA NITROGEN 46.7 mg/dL (7-18)
[2020-08-25 09:00] LABS: CALCIUM 9.1 mg/dL (8.5-10.1)
[2020-08-25 09:01] LABS: MAGNESIUM 2.8 mg/dL (1.8-2.4)
[2020-08-25 09:03] LABS: CREATININE 1.1 mg/dL (0.55-1.3)
[2020-08-25] MEDS: SERTRALINE HCL 50 MG TABLET (FP) PEG SCH (09:53)
[2020-08-25] MEDS: CARVEDILOL 6.25 MG TABLET (FP) PEG SCH (09:53)
[2020-08-25] MEDS: ASPIRIN 81 MG CHEWABLE TABLETS PEG SCH (09:53)
[2020-08-25] MEDS: SACUBITRIL/VALSARTAN 24 MG-26 MG TABLET PEG SCH ×2 (09:55→21:58)
[2020-08-25] MEDS ORDERED: PT OWN MED DRAWER 7, Y5N ONE ×2 (09:55→21:47)
[2020-08-25] MEDS: FERROUS SO4 300 MG/5 ML ORAL SOLN UNIT DOSE CUPS PEG SCH (09:56)
[2020-08-25] MEDS: EPLERENONE 25 MG TABLET PO SCH (09:56)
[2020-08-25] MEDS: GLYCOPYRROLATE 1 MG TABLET PEG SCH ×2 (09:56→21:58)
[2020-08-25] MEDS: BUDESONIDE/FORMETEROL FUMARATE 160/4.5 mcg INHALER IH SCH ×2 (09:56→21:58)
[2020-08-25] MEDS ORDERED: FUROSEMIDE 40 MG TABLET (FP) PO SCH (10:00)
[2020-08-25] MEDS ORDERED: FUROSEMIDE 40 MG/4 ML INJECTABLE VIAL IVPUSH ONE (13:00)
[2020-08-25] MEDS: ATORVASTATIN CA 40 MG TABLET (FP) PEG SCH (21:58)
[2020-08-26] MEDS: ALBUTEROL SO4 2.5/IPRATROPIUM 0.5 INH SOL 3 ML VIAL.NEB. NEB PRN (00:36)
[2020-08-26] MEDS ORDERED: ACETAMINOPHEN 650 MG/20.3 ML ORAL SOLUTION (CUPS) NGT ONE (05:25)
[2020-08-26] MEDS: FUROSEMIDE 40 MG/4 ML INJECTABLE VIAL IVPUSH SCH ×2 (05:32→15:41)
[2020-08-26] MEDS: LEVOTHYROXINE NA 50 MCG TABLET (FP) PEG SCH (06:04)
[2020-08-26 07:42] LABS: BASO % 0.6 % (0-2.0); EOS % 4.4 % (0-4.5); HEMATOCRIT 30.1 % (35.4-49); HEMOGLOBIN 10.2 GM/dL (11.7-16.9); LYMPH % 7.9 % (8-40); MCH 35.7 pg (25.7-33.7); MCHC 33.8 g/dl (32.0-35.9); MEAN CELL VOLUME 105.4 fl (80-96); MEAN PLT VOLUME 9.5 fl (7.5-11.1); NEUT % 80.1 % (42.8-82.8); PLATELET COUNT 162 K/MM3 (134-434); RBC 2.85 M/mm3 (4.00-5.60); RDW 13.7 % (11.9-15.9)
[2020-08-26 07:54] LABS: POTASSIUM 3.5 mmol/L (3.5-5.1)
[2020-08-26 08:00] LABS: BLOOD UREA NITROGEN 49.9 mg/dL (7-18); CALCIUM 9.3 mg/dL (8.5-10.1)
[2020-08-26] MEDS ORDERED: PT OWN MED DRAWER 7, Y5N ONE ×4 (08:00→20:48)
[2020-08-26 08:03] LABS: CREATININE 1.2 mg/dL (0.55-1.3)
[2020-08-26] MEDS: SERTRALINE HCL 50 MG TABLET (FP) PEG SCH (09:19)
[2020-08-26] MEDS: SACUBITRIL/VALSARTAN 24 MG-26 MG TABLET PEG SCH ×2 (09:19→21:40)
[2020-08-26] MEDS: EPLERENONE 25 MG TABLET PO SCH (09:19)
[2020-08-26] MEDS: ASPIRIN 81 MG CHEWABLE TABLETS PEG SCH (09:19)
[2020-08-26] MEDS: CARVEDILOL 6.25 MG TABLET (FP) PEG SCH (09:19)
[2020-08-26] MEDS: BUDESONIDE/FORMETEROL FUMARATE 160/4.5 mcg INHALER IH SCH ×2 (09:20→21:40)
[2020-08-26] MEDS: FERROUS SO4 300 MG/5 ML ORAL SOLN UNIT DOSE CUPS PEG SCH (09:20)
[2020-08-26] MEDS: GLYCOPYRROLATE 1 MG TABLET PEG SCH ×2 (09:20→21:40)
[2020-08-26] MEDS ORDERED: DOCUSATE NA 100 MG/10 ML UNIT-DOSE CUPS PO ONE (10:41)
[2020-08-26] MEDS ORDERED: BUMETANIDE 0.5 MG TABLET PO ONE (10:41)
[2020-08-26] MEDS ORDERED: METOLAZONE 5 MG TABLET PO ONE (12:58)
[2020-08-26] MEDS: ALBUTEROL SO4 2.5/IPRATROPIUM 0.5 INH SOL 3 ML VIAL.NEB. NEB SCH ×2 (13:45→21:17)
[2020-08-26] MEDS ORDERED: INSULIN (LEVEMIR) 100 UNITS/ML UNITS SQ ONE (14:26)
[2020-08-26] MEDS ORDERED: INSULIN (NOVOLOG) ASPART 100 UNITS/ML 10ML VIAL ONE (14:26)
[2020-08-26] MEDS: ATORVASTATIN CA 40 MG TABLET (FP) PEG SCH (21:40)
[2020-08-27] MEDS: FUROSEMIDE 40 MG/4 ML INJECTABLE VIAL IVPUSH SCH ×2 (06:00→16:23)
[2020-08-27] MEDS: LEVOTHYROXINE NA 50 MCG TABLET (FP) PEG SCH (06:37)
[2020-08-27] MEDS: ALBUTEROL SO4 2.5/IPRATROPIUM 0.5 INH SOL 3 ML VIAL.NEB. NEB SCH ×3 (08:00→20:40)
[2020-08-27 09:26] LABS: BLOOD UREA NITROGEN 47.8 mg/dL (7-18); CALCIUM 9.1 mg/dL (8.5-10.1)
[2020-08-27 09:29] LABS: CREATININE 1.2 mg/dL (0.55-1.3)
[2020-08-27 09:36] LABS: POTASSIUM 3.4 mmol/L (3.5-5.1)
[2020-08-27] MEDS ORDERED: PT OWN MED DRAWER 7, Y5N ONE ×4 (09:55→22:15)
[2020-08-27] MEDS: ASPIRIN 81 MG CHEWABLE TABLETS PEG SCH (09:57)
[2020-08-27] MEDS: FERROUS SO4 300 MG/5 ML ORAL SOLN UNIT DOSE CUPS PEG SCH (09:57)
[2020-08-27] MEDS: SERTRALINE HCL 50 MG TABLET (FP) PEG SCH (09:57)
[2020-08-27] MEDS: SACUBITRIL/VALSARTAN 24 MG-26 MG TABLET PEG SCH ×2 (09:57→22:21)
[2020-08-27] MEDS: EPLERENONE 25 MG TABLET PO SCH (09:57)
[2020-08-27] MEDS: CARVEDILOL 6.25 MG TABLET (FP) PEG SCH (09:57)
[2020-08-27] MEDS: GLYCOPYRROLATE 1 MG TABLET PEG SCH ×2 (09:58→22:21)
[2020-08-27] MEDS: BUDESONIDE/FORMETEROL FUMARATE 160/4.5 mcg INHALER IH SCH ×2 (09:59→22:29)
[2020-08-27] MEDS ORDERED: METOLAZONE 5 MG TABLET PO ONE (13:30)
[2020-08-27 16:59] VITALS: BMI 19.9
[2020-08-27] MEDS ORDERED: ACETAMINOPHEN 1000 MG/100 ML VIAL (NON FORMULARY) IVPB ONE (17:53)
[2020-08-27] MEDS ORDERED: POTASSIUM CHLORIDE ORAL LIQUID 20 MEQ/15 ML GT ONE (17:56)
[2020-08-27] MEDS: ATORVASTATIN CA 40 MG TABLET (FP) PEG SCH (22:21)
[2020-08-28] MEDS: FUROSEMIDE 40 MG/4 ML INJECTABLE VIAL IVPUSH SCH (06:39)
[2020-08-28] MEDS: LEVOTHYROXINE NA 50 MCG TABLET (FP) PEG SCH (06:39)
[2020-08-28] MEDS: ALBUTEROL SO4 2.5/IPRATROPIUM 0.5 INH SOL 3 ML VIAL.NEB. NEB SCH ×3 (08:25→20:45)
[2020-08-28 08:51] LABS: CALCIUM 8.9 mg/dL (8.5-10.1)
[2020-08-28 08:52] LABS: BLOOD UREA NITROGEN 52.8 mg/dL (7-18)
[2020-08-28 08:55] LABS: CREATININE 1.4 mg/dL (0.55-1.3)
[2020-08-28] MEDS ORDERED: PT OWN MED DRAWER 7, Y5N ONE ×2 (09:52→21:11)
[2020-08-28] MEDS: CARVEDILOL 6.25 MG TABLET (FP) PEG SCH (10:02)
[2020-08-28] MEDS: ASPIRIN 81 MG CHEWABLE TABLETS PEG SCH (10:02)
[2020-08-28] MEDS: SERTRALINE HCL 50 MG TABLET (FP) PEG SCH (10:02)
[2020-08-28] MEDS: GLYCOPYRROLATE 1 MG TABLET PEG SCH ×2 (10:03→21:26)
[2020-08-28] MEDS: EPLERENONE 25 MG TABLET PO SCH (10:03)
[2020-08-28] MEDS: BUDESONIDE/FORMETEROL FUMARATE 160/4.5 mcg INHALER IH SCH ×2 (10:03→21:26)
[2020-08-28] MEDS: FERROUS SO4 300 MG/5 ML ORAL SOLN UNIT DOSE CUPS PEG SCH (10:03)
[2020-08-28] MEDS: SACUBITRIL/VALSARTAN 24 MG-26 MG TABLET PEG SCH ×2 (10:03→21:26)
[2020-08-28] MEDS: ATORVASTATIN CA 40 MG TABLET (FP) PEG SCH (21:26)
[2020-08-29] MEDS: LEVOTHYROXINE NA 50 MCG TABLET (FP) PEG SCH (06:16)
[2020-08-29] MEDS: ALBUTEROL SO4 2.5/IPRATROPIUM 0.5 INH SOL 3 ML VIAL.NEB. NEB SCH (08:00)
[2020-08-29 08:22] LABS: POTASSIUM 3.6 mmol/L (3.5-5.1)
[2020-08-29] MEDS ORDERED: PT OWN MED DRAWER 7, Y5N ONE ×2 (08:31→10:20)
[2020-08-29 08:44] LABS: CALCIUM 8.6 mg/dL (8.5-10.1)
[2020-08-29 08:45] LABS: BLOOD UREA NITROGEN 57.4 mg/dL (7-18)
[2020-08-29 08:48] LABS: CREATININE 1.4 mg/dL (0.55-1.3)
[2020-08-29] MEDS: GLYCOPYRROLATE 1 MG TABLET PEG SCH (09:27)
[2020-08-29] MEDS: SACUBITRIL/VALSARTAN 24 MG-26 MG TABLET PEG SCH (09:27)
[2020-08-29] MEDS: EPLERENONE 25 MG TABLET PO SCH (09:28)
[2020-08-29] MEDS: ASPIRIN 81 MG CHEWABLE TABLETS PEG SCH (09:28)
[2020-08-29] MEDS: CARVEDILOL 6.25 MG TABLET (FP) PEG SCH (09:28)
[2020-08-29] MEDS: SERTRALINE HCL 50 MG TABLET (FP) PEG SCH (09:28)
[2020-08-29] MEDS: BUDESONIDE/FORMETEROL FUMARATE 160/4.5 mcg INHALER IH SCH (09:29)
[2020-08-29] MEDS: FERROUS SO4 300 MG/5 ML ORAL SOLN UNIT DOSE CUPS PEG SCH (09:29)
[2020-08-29] MEDS ORDERED: FUROSEMIDE 40 MG TABLET (FP) PO SCH (10:00)
[2020-08-29 11:27] VITALS: BP 123/73; PULSE 68; TEMP 98
== END 2020-08-29 14:50 | disposition home or self-care (01) | DRG 291 ==
LOC: JER 12:39 → JERBED 17:15 → J4W 20:17
PROVIDERS: ADMIT Family Medicine; ATTEND Family Medicine
DX: I13.0 Hypertensive heart and chronic kidney disease with heart failure and stage 1 through stage 4 chronic kidney disease, or unspecified chronic kidney disease (principal); I50.23 Acute on chronic systolic (congestive) heart failure; N18.31 Chronic kidney disease, stage 3a; E78.00 Pure hypercholesterolemia, unspecified; E03.9 Hypothyroidism, unspecified; I25.10 Atherosclerotic heart disease of native coronary artery without angina pectoris; J44.9 Chronic obstructive pulmonary disease, unspecified; I65.29 Occlusion and stenosis of unspecified carotid artery; I48.0 Paroxysmal atrial fibrillation; M54.5 Low back pain; I25.2 Old myocardial infarction; I44.0 Atrioventricular block, first degree; Z95.1 Presence of aortocoronary bypass graft; Z85.21 Personal history of malignant neoplasm of larynx; Z93.1 Gastrostomy status; Z95.810 Presence of automatic (implantable) cardiac defibrillator
CPT/HCPCS: 36415; 71045-TC-FY; 71260-TC; 80048; 80053; 81003; 82136; 82248; 82550; 82728; 82803; 83605; 83615; 83735; 83880; 83918; 84443; 84484; 85025; 85027; 85610; 85730; 86140; 86769; 87086; 87186; 87804; 93005; 93010; 93306-TC; 93880-TC; 94640; 94761; 99285-25; C9803; J0131; U0003